=== PATIENT | male | born 1945 | race Caucasian/White ===

== ENCOUNTER 2018-04-30 16:51 | Inpatient (IN) | payer MEDICARE, BC ==
[2018-04-30] MEDS ORDERED: Sodium Chloride 0.9% 2.5 ML Syringe FLUSH PRN ×2 (17:08→19:14)
[2018-04-30] MEDS ORDERED: Sodium Chloride 0.9% 10 ML Syringe FLUSH PRN ×2 (17:08→19:14)
--- NOTE | 2018-04-30 17:11 | EDM.PDOC ---
ED HPI GENERAL MEDICAL PROBLEM - General Chief Complaint: Respiratory Problem Stated Complaint: WEAK Time Seen by Provider: 04/30/18 16:53 Source of Information: Reports: Patient History Limitations: Reports: No Limitations - History of Present Illness INITIAL COMMENTS - FREE TEXT/NARRATIVE: History of present illness: []Patient was brought in by his daughter for headache, generalized weakness and COPD exacerbation with cough. He denies any chest pain, notes that he was recently started on Elaquis and has been taking 800 mg of ibuprofen for his headaches. He's had no abdominal pain, vomiting or diarrhea. Review of systems: As per history of present illness and below otherwise all systems reviewed and negative. Past medical history: As per history of present illness and as reviewed below otherwise noncontributory. Surgical history: As per history of present illness and as reviewed below otherwise noncontributory. Social history: No reported history of drug or alcohol abuse. Family history: As per history of present illness and as reviewed below otherwise noncontributory. Physical exam: General: Well developed, well nourished in NAD HEENT: Atraumatic, normocephalic, pupils reactive, negative for conjunctival pallor or scleral icterus, mucous membranes moist, throat clear, neck supple, nontender, trachea midline. Lungs: Clear to auscultation, decreased breath sounds equal bilaterally, chest nontender. Heart: S1S2, regular, negative for clicks, rubs, or JVD. Abdomen: NABS, Soft, nondistended, nontender. Negative for masses or hepatosplenomegaly. Negative for costovertebral tenderness. Pelvis: Stable nontender. Genitourinary: Deferred. Rectal: Deferred. Extremities: Atraumatic, negative for cords or calf pain. Neurovascular unremarkable. Neuro: Awake, alert, oriented. Cranial nerves II through XII unremarkable. Cerebellum unremarkable. Motor and sensory unremarkable throughout. Exam nonfocal. Skin:warm and dry Diagnostics: CBC, CMP, chest x-ray, blood cultures, CT head Therapeutics: DuoNeb, Solu-Medrol, Levaquin started in the ED ED Course: Unremarkable Impression: Early pneumonia left lower lobe Prescriptions: None Plan: For observation for IV antibiotics and further breathing treatments as needed. Definitive disposition and diagnosis as appropriate pending reevaluation and review of above. - Related Data Allergies Allergy/AdvReac Type Severity Reaction Status Date / Time prednisone AdvReac Agitation Verified 04/30/18 17:01 Home Meds: Home Meds Albuterol [Proventil HFA] 1 puff INH QID PRN 07/06/13 [History] Ipratropium [Atrovent HFA] 2 puff INH QID PRN 07/06/13 [History] Ipratropium/Albuterol Sulfate [Duoneb 0.5 mg-3 mg/3 ml Soln] 3 ml IH QID PRN [History] Simvastatin [Zocor] 10 mg PO BEDTIME 11/24/14 [History] traZODone 100 mg PO BEDTIME 11/24/14 [History] Docusate Sodium [Pedia-Lax Stool Softener] 50 mg PO DAILY 01/01/16 [History] ALPRAZolam [Xanax] 1 tab PO BEDTIME 04/18/16 [History] Budesonide/Formoterol Fumarate [Symbicort 160-4.5 Mcg Inhaler] 2 puff INH BID [History] Docusate Sodium [Colace Clear] 1 cap PO BID 04/18/16 [History] Levofloxacin 1 tab PO DAILY 04/18/16 [History] Montelukast [Singulair] 10 mg PO BEDTIME 04/18/16 [History] traZODone 1 tab PO BEDTIME 04/18/16 [History] Apixaban [Eliquis] 5 mg PO BID 04/30/18 [History] Past Medical History - Past Health History Medical/Surgical History: Denies Medical/Surgical History HEENT History: Reports: None Other HEENT History: feeling of tightness in throat Cardiovascular History: Reports: High Cholesterol Respiratory History: Reports: COPD Other Respiratory History: on home O2 at 3LPM/NC Gastrointestinal History: Reports: Chronic Constipation Genitourinary History: Denies: Dialysis Other Genitourinary History: prostate CA; had radiation last 2007 Musculoskeletal History: Reports: Other (See Below) Other Musculoskeletal History: herniated disc Neurological History: Reports: None Psychiatric History: Reports: Anxiety Other Psychiatric History: on medications Endocrine/Metabolic History: Reports: None Hematologic History: Reports: None Immunologic History: Reports: None Oncologic (Cancer) History: Reports: Prostate Dermatologic History: Reports: None - Infectious Disease History Infectious Disease History: Reports: Influenza - Past Surgical History HEENT Surgical History: Reports: Oral Surgery Neurological Surgical History: Reports: Lumbar Spine Musculoskeletal Surgical History: Reports: Other (See Below) Oncologic Surgical History: Reports: Other (See Below) Social & Family History - Family History Family Medical History: Noncontributory Respiratory: Reports: Other (See Below) Other Respiratory Family Hisory: emphysema Oncologic: Reports: Other (See Below) Other Oncologic Family History: not sure what type of CA - Caffeine Use Caffeine Use: Reports: Coffee Caffeine Use Comment: 5-10cups/day ED ROS GENERAL - Review of Systems Review Of Systems: ROS reveals no pertinent complaints other than HPI. ED EXAM, GENERAL - Physical Exam Exam: See Below (See history of present illness) Course - Vital Signs Last Recorded V/S: Last Vital Signs Temp 98.4 F 04/30/18 17:02 Pulse 96 04/30/18 17:02 Resp 24 H 04/30/18 17:02 BP 126/71 04/30/18 17:02 Pulse Ox 93 L 04/30/18 17:02 - Orders/Labs/Meds Orders: Active Orders 24 hr Category Date Time Status Patient Status [ADT] Stat ADT 04/30/18 18:44 Active CULTURE BLOOD [BC] Stat Lab 04/30/18 17:21 Received CULTURE BLOOD [BC] Stat Lab 04/30/18 18:15 Received Levofloxacin/Dextrose 5%-Water [Levaquin in D5W 500 MG/ Med 04/30/18 18:43 Active 100 ML] 500 mg Premix Bag 1 bag IV ONETIME Sodium Chloride 0.9% [Saline Flush] Med 04/30/18 17:08 Active 10 ml FLUSH ASDIRECTED PRN Sodium Chloride 0.9% [Saline Flush] Med 04/30/18 17:08 Active 2.5 ml FLUSH ASDIRECTED PRN Blood Culture x2 Reflex Set [OM.PC] Stat Oth 04/30/18 17:08 Ordered Saline Lock Insert [OM.PC] Stat Oth 04/30/18 17:08 Ordered Medication Orders Levofloxacin/Dextrose 500 mg/ (Premix) 100 mls @ 100 mls/hr IV ONETIME ONE Stop: 04/30/18 19:42 Sodium Chloride (Saline Flush) 10 ml FLUSH ASDIRECTED PRN PRN Reason: Keep Vein Open Sodium Chloride (Saline Flush) 2.5 ml FLUSH ASDIRECTED PRN PRN Reason: Keep Vein Open Labs: Laboratory Tests 04/30/18 04/30/18 04/30/18 Range/Units 17:21 17:21 17:21 WBC 3.95 L (4.0-11.0) K/uL RBC 4.29 L (4.50-5.90) M/uL Hgb 12.9 L (13.0-17.0) g/dL Hct 41.7 (38.0-50.0) % MCV 97.2 (80.0-98.0) fL MCH 30.1 (27.0-32.0) pg MCHC 30.9 L (31.0-37.0) g/dL RDW Std Deviation 47.8 (28.0-62.0) fl RDW Coeff of Giacomo 14 (11.0-15.0) % Plt Count 162 (150-400) K/uL MPV 9.60 (7.40-12.00) fL Neut % (Auto) 46.7 L (48.0-80.0) % Lymph % (Auto) 34.2 (16.0-40.0) % Coleman % (Auto) 8.9 (0.0-15.0) % Eos % (Auto) 9.9 H (0.0-7.0) % Baso % (Auto) 0.3 (0.0-1.5) % Neut # (Auto) 1.9 (1.4-5.7) K/uL Lymph # (Auto) 1.4 (0.6-2.4) K/uL Coleman # (Auto) 0.4 (0.0-0.8) K/uL Eos # (Auto) 0.4 (0.0-0.7) K/uL Baso # (Auto) 0.0 (0.0-0.1) K/uL Nucleated RBC % 0.0 /100WBC Nucleated RBCs # 0 K/uL INR 0.98 APTT 27.9 (18.6-31.3) SEC Sodium 143 (136-148) mmol/L Potassium 4.4 (3.5-5.1) mmol/L Chloride 103 (98-107) mmol/L Carbon Dioxide 35.3 H (21.0-32.0) mmol/L BUN 17 (7.0-18.0) mg/dL Creatinine 0.7 L (0.8-1.3) mg/dL Est Cr Clr Drug Dosing TNP Estimated GFR (MDRD) > 60.0 ml/min Glucose 110 H (74-106) mg/dL Calcium 9.3 (8.5-10.1) mg/dL Total Bilirubin 0.4 (0.2-1.0) mg/dL AST 13 L (15-37) IU/L ALT 15 (14-63) IU/L Alkaline Phosphatase 73 (46-116) U/L Total Protein 7.1 (6.4-8.2) g/dL Albumin 3.6 (3.4-5.0) g/dL Globulin 3.5 (2.6-4.0) g/dL Albumin/Globulin Ratio 1.0 (0.9-1.6) Meds: Medications Generic Name Dose Route Start Last Admin Trade Name Freq PRN Reason Stop Dose Admin Levofloxacin/Dextrose 500 mg/ 100 mls @ 100 mls/hr 04/30/18 18:43 Premix IV 04/30/18 19:42 ONETIME ONE Sodium Chloride 10 ml 04/30/18 17:08 Saline Flush FLUSH ASDIRECTED PRN Keep Vein Open Sodium Chloride 2.5 ml 04/30/18 17:08 Saline Flush FLUSH ASDIRECTED PRN Keep Vein Open Departure - Departure Time of Disposition: 18:55 Disposition: DC/Tfer to Acute Hospital 02 Condition: Good Clinical Impression: Pneumonia Qualifiers: Pneumonia type: due to unspecified organism Laterality: left Lung location: lower lobe of lung Qualified Code(s): J18.9 - Pneumonia, unspecified organism - Discharge Information *PRESCRIPTION DRUG MONITORING PROGRAM REVIEWED*: No *COPY OF PRESCRIPTION DRUG MONITORING REPORT IN PATIENT LIZZIE: No Referrals: PCP,Unknown [Primary Care Provider] - Forms: ED Department Discharge - My Orders Last 24 Hours: My Active Orders 04/30/18 17:08 Sodium Chloride 0.9% [Saline Flush] 10 ml FLUSH ASDIRECTED PRN Sodium Chloride 0.9% [Saline Flush] 2.5 ml FLUSH ASDIRECTED PRN Blood Culture x2 Reflex Set [OM.PC] Stat Saline Lock Insert [OM.PC] Stat 04/30/18 17:21 CULTURE BLOOD [BC] Stat 04/30/18 18:15 CULTURE BLOOD [BC] Stat 04/30/18 18:43 Levofloxacin/Dextrose 5%-Water [Levaquin in D5W 500 MG/100 ML] 500 mg Premix Bag 1 bag IV ONETIME 04/30/18 18:44 Patient Status [ADT] Stat - Assessment/Plan Last 24 Hours: My Active Orders 04/30/18 17:08 Sodium Chloride 0.9% [Saline Flush] 10 ml FLUSH ASDIRECTED PRN Sodium Chloride 0.9% [Saline Flush] 2.5 ml FLUSH ASDIRECTED PRN Blood Culture x2 Reflex Set [OM.PC] Stat Saline Lock Insert [OM.PC] Stat 04/30/18 17:21 CULTURE BLOOD [BC] Stat 04/30/18 18:15 CULTURE BLOOD [BC] Stat 04/30/18 18:43 Levofloxacin/Dextrose 5%-Water [Levaquin in D5W 500 MG/100 ML] 500 mg Premix Bag 1 bag IV ONETIME 04/30/18 18:44 Patient Status [ADT] Stat
[2018-04-30 17:58] LABS: CHLORIDE,CL 103 mmol/L (98-107); SODIUM,NA 143 mmol/L (136-148)
--- NOTE | 2018-04-30 18:25 | CT ---
HISTORY: Headache. Weakness. TECHNIQUE: CT brain without contrast. COMPARISON: None. FINDINGS: No acute intracranial hemorrhage. No extra-axial collection. No mass effect or midline shift. Mild patchy hypoattenuation in the deep white matter is nonspecific but likely chronic small vessel ischemic changes. Ventricular system is normal in caliber and morphology. Cisterns are patent. Calvarium is intact. Imaged portions of the paranasal sinuses and mastoid air cells are clear. IMPRESSION: No acute intracranial abnormality. Mild white matter disease, likely chronic small vessel ischemic change. Please note that all CT scans at this facility use dose modulation, iterative reconstruction, and/or weight-based dosing when appropriate to reduce radiation dose to as low as reasonably achievable. Dictated by Bon Rucker MD @ Apr 30 2018 6:18PM Signed by Dr. Bon Rucker @ Apr 30 2018 6:22PM
--- NOTE | 2018-04-30 18:27 | CR ---
HISTORY: Cough. TECHNIQUE: Frontal view the chest. COMPARISON: Chest x-ray 04/18/2016. FINDINGS: Consolidative airspace opacity in the left lung base. No consolidation on the right. No pleural effusion or pneumothorax. Pulmonary vasculature and cardiomediastinal silhouette are within normal limits. IMPRESSION: Left lung base airspace consolidation, likely pneumonia. Follow-up after treatment is recommended to assess for resolution. Dictated by Bon Rucker MD @ Apr 30 2018 6:23PM Signed by Dr. Bon Rucker @ Apr 30 2018 6:24PM
[2018-04-30] MEDS ORDERED: Levofloxacin/Dextrose 5%-Water 500 MG in Premix Bag 1 BAG IV ONE (18:43)
[2018-04-30] MEDS ORDERED: Sodium Chloride 0.9% 10 ML SDV IV PRN (19:14)
[2018-04-30] MEDS ORDERED: Albuterol/Ipratropium 3.0-0.5 MG/3 ML Neb Soln NEB PRN (19:14)
[2018-04-30] MEDS ORDERED: Ondansetron 4 MG/2 ML SDV IVPUSH PRN (19:14)
[2018-04-30] MEDS ORDERED: Morphine 10 MG/ML Syringe IVPUSH PRN (19:14)
[2018-04-30] MEDS ORDERED: Acetaminophen 325 MG Tab PO PRN (19:14)
[2018-04-30] MEDS ORDERED: cefTRIAXone 1 GM in Sodium Chloride 0.9% 50 ML IV SCH (19:30)
--- NOTE | 2018-04-30 19:31 | PCM.HP ---
H&P History of Present Illness - General Date of Service: 04/30/18 Admit Problem/Dx: Admission Diagnosis/Problem Admission Diagnosis/Problem Pneumonia Source of Information: Patient, Family - History of Present Illness Initial Comments - Free Text/Narative: This is a 72-year-old male with no significant past medical history of COPD as well as clotting(pulmonary embolism history per family) history for which he is on Eliquis 5mg. patient presented to the ED with complaints of a headache generalized weakness and appearance of COPD exacerbation. Patient is on home O2 at 4 L and stated that despite the O2 4 L he was wheezing becoming and increased short of breath having a cough with productive sputum. Patient denied any fevers chills, nausea vomiting, diarrhea or constipation. Patient denied any chest pain or pressure. Patient states that he's been feeling unwell for the past week or so he saw his primary care physician Dr. Limon in the a.m. we will place the patient on Levaquin 500 mg daily however because continue to get worse throughout the rest of the day and proceeded to coming to the ER for further investigation. Imaging done in the ED indicates a left lower lobe pneumonia, she was given a IV 500 mg dose of Levaquin and DuoNeb's and was subsequently admitted for pneumonia treatment and COPD exacerbation. - Related Data Allergies/Adverse Reactions: Allergies Allergy/AdvReac Type Severity Reaction Status Date / Time prednisone AdvReac Agitation Verified 04/30/18 17:01 Home Medications: Home Meds Albuterol [Proventil HFA] 1 puff INH QID PRN 07/06/13 [History] Ipratropium [Atrovent HFA] 2 puff INH QID PRN 07/06/13 [History] Ipratropium/Albuterol Sulfate [Duoneb 0.5 mg-3 mg/3 ml Soln] 3 ml IH QID PRN [History] Simvastatin [Zocor] 10 mg PO BEDTIME 11/24/14 [History] traZODone 100 mg PO BEDTIME 11/24/14 [History] Docusate Sodium [Pedia-Lax Stool Softener] 50 mg PO DAILY 01/01/16 [History] ALPRAZolam [Xanax] 1 tab PO BEDTIME 04/18/16 [History] Budesonide/Formoterol Fumarate [Symbicort 160-4.5 Mcg Inhaler] 2 puff INH BID [History] Docusate Sodium [Colace Clear] 1 cap PO BID 04/18/16 [History] Levofloxacin 1 tab PO DAILY 04/18/16 [History] Montelukast [Singulair] 10 mg PO BEDTIME 04/18/16 [History] traZODone 1 tab PO BEDTIME 04/18/16 [History] Apixaban [Eliquis] 5 mg PO BID 04/30/18 [History] Past Medical History - Past Health History Medical/Surgical History: Denies Medical/Surgical History HEENT History: Reports: None Other HEENT History: feeling of tightness in throat Cardiovascular History: Reports: High Cholesterol Other Cardiovascular History: AAA Respiratory History: Reports: COPD Other Respiratory History: on home O2 at 3LPM/NC Gastrointestinal History: Reports: Chronic Constipation Genitourinary History: Denies: Dialysis Other Genitourinary History: prostate CA; had radiation last 2007 Musculoskeletal History: Reports: Other (See Below) Other Musculoskeletal History: herniated disc Neurological History: Reports: None Psychiatric History: Reports: Anxiety Other Psychiatric History: on medications Endocrine/Metabolic History: Reports: None Hematologic History: Reports: None Immunologic History: Reports: None Oncologic (Cancer) History: Reports: Prostate Dermatologic History: Reports: None - Infectious Disease History Infectious Disease History: Reports: Influenza - Past Surgical History HEENT Surgical History: Reports: Oral Surgery Neurological Surgical History: Reports: Lumbar Spine Musculoskeletal Surgical History: Reports: Other (See Below) Oncologic Surgical History: Reports: Other (See Below) Social & Family History - Family History Family Medical History: Noncontributory Respiratory: Reports: Other (See Below) Other Respiratory Family Hisory: emphysema Oncologic: Reports: Other (See Below) Other Oncologic Family History: not sure what type of CA - Tobacco Use Smoking Status *Q: Former Smoker Used Tobacco, but Quit: Yes Month/Year Tobacco Last Used: 2008 - Caffeine Use Caffeine Use: Reports: Coffee Caffeine Use Comment: 5-10cups/day - Recreational Drug Use Recreational Drug Use: No H&P Review of Systems - Review of Systems: Review Of Systems: ROS reveals no pertinent complaints other than HPI. Exam - Exam Exam: See Below - Vital Signs Vital Signs: Last Vital Signs Temp 36.9 C 04/30/18 17:02 Pulse 91 04/30/18 18:30 Resp 20 04/30/18 18:30 BP 126/70 04/30/18 18:30 Pulse Ox 94 L 04/30/18 18:30 - Exam Quality Assessment: Supplemental Oxygen General: Alert, Oriented, Mild Distress, Moderate Distress Lungs: Decreased Breath Sounds, Wheezing Cardiovascular: Regular Rate, Regular Rhythm GI/Abdominal Exam: Normal Bowel Sounds, Soft Extremities: Normal Inspection - Patient Data Lab Results Last 24 hrs: Laboratory Results - last 24 hr 04/30/18 04/30/18 04/30/18 Range/Units 17:21 17:21 17:21 WBC 3.95 L (4.0-11.0) K/uL RBC 4.29 L (4.50-5.90) M/uL Hgb 12.9 L (13.0-17.0) g/dL Hct 41.7 (38.0-50.0) % MCV 97.2 (80.0-98.0) fL MCH 30.1 (27.0-32.0) pg MCHC 30.9 L (31.0-37.0) g/dL RDW Std Deviation 47.8 (28.0-62.0) fl RDW Coeff of Giacomo 14 (11.0-15.0) % Plt Count 162 (150-400) K/uL MPV 9.60 (7.40-12.00) fL Neut % (Auto) 46.7 L (48.0-80.0) % Lymph % (Auto) 34.2 (16.0-40.0) % Porter % (Auto) 8.9 (0.0-15.0) % Eos % (Auto) 9.9 H (0.0-7.0) % Baso % (Auto) 0.3 (0.0-1.5) % Neut # (Auto) 1.9 (1.4-5.7) K/uL Lymph # (Auto) 1.4 (0.6-2.4) K/uL Porter # (Auto) 0.4 (0.0-0.8) K/uL Eos # (Auto) 0.4 (0.0-0.7) K/uL Baso # (Auto) 0.0 (0.0-0.1) K/uL Nucleated RBC % 0.0 /100WBC Nucleated RBCs # 0 K/uL INR 0.98 APTT 27.9 (18.6-31.3) SEC Sodium 143 (136-148) mmol/L Potassium 4.4 (3.5-5.1) mmol/L Chloride 103 (98-107) mmol/L Carbon Dioxide 35.3 H (21.0-32.0) mmol/L BUN 17 (7.0-18.0) mg/dL Creatinine 0.7 L (0.8-1.3) mg/dL Est Cr Clr Drug Dosing TNP Estimated GFR (MDRD) > 60.0 ml/min Glucose 110 H (74-106) mg/dL Calcium 9.3 (8.5-10.1) mg/dL Total Bilirubin 0.4 (0.2-1.0) mg/dL AST 13 L (15-37) IU/L ALT 15 (14-63) IU/L Alkaline Phosphatase 73 (46-116) U/L Total Protein 7.1 (6.4-8.2) g/dL Albumin 3.6 (3.4-5.0) g/dL Globulin 3.5 (2.6-4.0) g/dL Albumin/Globulin Ratio 1.0 (0.9-1.6) Result Diagrams: 04/30/18 17:21 04/30/18 17:21 Problem List Initiated/Reviewed/Updated: Yes Orders Last 24hrs: Active Orders 24 hr Category Date Time Status Patient Status [ADT] Stat ADT 04/30/18 18:44 Active Height and Weight [RC] UPON Care 04/30/18 19:14 Ordered Intake and Output [RC] QSHIFT Care 04/30/18 19:14 Ordered Oxygen Therapy [RC] PRN Care 04/30/18 19:14 Ordered Pulse Oximetry [RC] PRN Care 04/30/18 19:14 Ordered RT Aerosol Therapy [RC] ASDIRECTED Care 04/30/18 19:16 Ordered Telemetry Monitoring [Cardiac Monitoring] [RC] . Care 04/30/18 19:23 Ordered DIRECTED Up With Assistance [RC] ASDIRECTED Care 04/30/18 19:14 Ordered VTE/DVT Education [RC] PER UNIT ROUTINE Care 04/30/18 19:14 Ordered Vital Signs [RC] Q4H Care 04/30/18 19:14 Ordered PT Evaluation and Treatment [CONS] Routine Cons 04/30/18 19:14 Ordered Respiratory Care Assess and Treatment [CONS] Routine Cons 04/30/18 19:14 Ordered Regular Diet [DIET] Diet 04/30/18 Breakfast Ordered C-REACTIVE PROTEIN [CHEM] Routine Lab 04/30/18 19:14 Ordered CBC WITH AUTO DIFF [HEME] AM Lab 05/01/18 05:11 Ordered COMPREHENSIVE METABOLIC PN,CMP [CHEM] AM Lab 05/01/18 05:11 Ordered CULTURE BLOOD [BC] Stat Lab 04/30/18 17:21 Received CULTURE BLOOD [BC] Stat Lab 04/30/18 18:15 Received CULTURE SPUTUM + SMEAR [RM] Stat Lab 04/30/18 19:14 Ordered CULTURE URINE [RM] Stat Lab 04/30/18 19:14 Ordered LACTIC ACID,WHOLE BLOOD [BG] Stat Lab 04/30/18 19:24 Ordered UA W/MICROSCOPIC [URIN] Routine Lab 04/30/18 19:14 Ordered Acetaminophen [Tylenol] Med 04/30/18 19:14 Ordered 650 mg PO Q4H PRN Albuterol/Ipratropium [DuoNeb 3.0-0.5 MG/3 ML] Med 04/30/18 19:14 Ordered 3 ml NEB Q4HRRT PRN Azithromycin [Zithromax] Med 04/30/18 19:30 Ordered 500 mg PO Q24H Levofloxacin/Dextrose 5%-Water [Levaquin in D5W 500 MG/ Med 04/30/18 18:43 Active 100 ML] 500 mg Premix Bag 1 bag IV ONETIME Morphine Med 04/30/18 19:14 Ordered 2 mg IVPUSH Q2H PRN Ondansetron [Zofran] Med 04/30/18 19:14 Ordered 4 mg IVPUSH Q4H PRN Sodium Chloride 0.9% [Normal Saline] Med 04/30/18 19:14 Ordered 10 ml IV ASDIRECTED PRN Sodium Chloride 0.9% [Saline Flush] Med 04/30/18 17:08 Active 10 ml FLUSH ASDIRECTED PRN Sodium Chloride 0.9% [Saline Flush] Med 04/30/18 19:14 Ordered 10 ml FLUSH ASDIRECTED PRN Sodium Chloride 0.9% [Saline Flush] Med 04/30/18 17:08 Active 2.5 ml FLUSH ASDIRECTED PRN Sodium Chloride 0.9% [Saline Flush] Med 04/30/18 19:14 Ordered 2.5 ml FLUSH ASDIRECTED PRN cefTRIAXone [Rocephin] 1 gm Med 04/30/18 19:30 Ordered Sodium Chloride 0.9% [Normal Saline] 50 ml IV Q24H Blood Culture x2 Reflex Set [OM.PC] Stat Oth 04/30/18 17:08 Ordered Peripheral IV Insertion Adult [OM.PC] Routine Oth 04/30/18 19:14 Ordered Saline Lock Insert [OM.PC] Stat Oth 04/30/18 17:08 Ordered Medication Orders Acetaminophen (Tylenol) 650 mg PO Q4H PRN PRN Reason: Pain (Mild 1-3)/fever Albuterol/Ipratropium (Duoneb 3.0-0.5 Mg/3 Ml) 3 ml NEB Q4HRRT PRN PRN Reason: Shortness Of Breath/wheezing Azithromycin (Zithromax) 500 mg PO Q24H CARLOS A Levofloxacin/Dextrose 500 mg/ (Premix) 100 mls @ 100 mls/hr IV ONETIME ONE Stop: 04/30/18 19:42 Last Admin: 04/30/18 19:07 Dose: 100 mls/hr Ceftriaxone Sodium 1 gm/ (Sodium Chloride) 50 mls @ 100 mls/hr IV Q24H CARLOS A Morphine Sulfate (Morphine) 2 mg IVPUSH Q2H PRN PRN Reason: Pain (severe 7-10) Stop: 05/01/18 19:15 Ondansetron HCl (Zofran) 4 mg IVPUSH Q4H PRN PRN Reason: Nausea/Vomiting Sodium Chloride (Saline Flush) 10 ml FLUSH ASDIRECTED PRN PRN Reason: Keep Vein Open Last Admin: 04/30/18 19:07 Dose: 10 ml Sodium Chloride (Saline Flush) 2.5 ml FLUSH ASDIRECTED PRN PRN Reason: Keep Vein Open Last Admin: 04/30/18 19:07 Dose: 2.5 ml Sodium Chloride (Saline Flush) 10 ml FLUSH ASDIRECTED PRN PRN Reason: Keep Vein Open Sodium Chloride (Saline Flush) 2.5 ml FLUSH ASDIRECTED PRN PRN Reason: Keep Vein Open Sodium Chloride (Normal Saline) 10 ml IV ASDIRECTED PRN PRN Reason: IV Use Assessment/Plan Comment:: This is a 72-year-old male with a past medical history of COPD presenting with weakness, dyspnea, feeling unwell cough and increased sputum production secondary to acute exacerbation of COPD with a pneumonia based upon chest x-ray -For the acute COPD, patient to get dual nebs scheduled, methyl Pred, O2 titrated as needed, respiratory therapy consult. -For the patient's pneumonia likely community-acquired pneumonia -Sputum cultures, blood cultures ordered -Patient however to be treated with ceftriaxone and azithromycin up until sputum cultures come back -Patient placed on regular diet DVT prophylaxis with resumption of Eliquis 5mg. Labs in the a.m.
[2018-04-30] MEDS ORDERED: LORazepam 2 MG/ML SDV IVPUSH PRN (19:38)
[2018-04-30] MEDS ORDERED: Morphine 2 MG/ML Syringe IVPUSH PRN (19:44)
[2018-04-30] MEDS ORDERED: methylPREDNISolone Sodium Succinate 125 MG/2 ML SDV IVPUSH SCH (19:45)
[2018-04-30] MEDS: Azithromycin 250 MG Tab PO SCH (21:22)
[2018-04-30] MEDS: Apixaban 5 MG Tab PO SCH (21:22)
[2018-04-30] MEDS: methylPREDNISolone Sodium Succinate 125 MG/2 ML SDV IVPUSH SCH (21:23)
[2018-04-30] MEDS: cefTRIAXone 1 GM in Premix Bag 1 BAG IV SCH (21:31)
[2018-04-30] MEDS: Albuterol/Ipratropium 3.0-0.5 MG/3 ML Neb Soln NEB SCH (22:53)
[2018-05-01] MEDS: Simvastatin 20 MG Tab PO SCH ×2 (01:34→21:02)
[2018-05-01] MEDS: Montelukast 10 MG Tab PO SCH ×2 (01:34→21:03)
[2018-05-01] MEDS: traZODone 50 MG Tab PO SCH ×2 (01:34→21:02)
[2018-05-01] MEDS: Albuterol/Ipratropium 3.0-0.5 MG/3 ML Neb Soln NEB SCH ×7 (02:56→22:00)
[2018-05-01] MEDS: methylPREDNISolone Sodium Succinate 125 MG/2 ML SDV IVPUSH SCH ×3 (02:56→21:06)
[2018-05-01 06:27] LABS: CHLORIDE,CL 105 mmol/L (98-107); SODIUM,NA 142 mmol/L (136-148)
[2018-05-01] MEDS: Docusate Sodium 100 MG Cap PO SCH (09:29)
[2018-05-01] MEDS: Apixaban 5 MG Tab PO SCH ×2 (09:29→21:02)
[2018-05-01] MEDS: Budesonide/Formoterol 160-4.5 MCG/Puff 6 GM Inhaler INH SCH ×2 (09:40→20:57)
[2018-05-01] MEDS ORDERED: methylPREDNISolone Sodium Succinate 125 MG/2 ML SDV IVPUSH SCH (12:30)
--- NOTE | 2018-05-01 12:32 | PCM.PN ---
- General Info Date of Service: 05/01/18 - Review of Systems Systems Review Comment:: feeling a little better, reports shortness of breath with movement - Patient Data Vitals - Most Recent: Last Vital Signs Temp 36 C 05/01/18 08:53 Pulse 106 H 05/01/18 08:53 Resp 22 H 05/01/18 03:56 BP 138/78 05/01/18 08:53 Pulse Ox 96 05/01/18 03:56 Weight - Most Recent: 96.162 kg I&O - Last 24 Hours: Intake & Output 04/30/18 05/01/18 05/01/18 22:59 06:59 14:59 Intake Total 520 Output Total 170 Balance 350 Lab Results Last 24 Hours: Laboratory Results - last 24 hr 04/30/18 04/30/18 04/30/18 Range/Units 17:21 17:21 17:21 WBC 3.95 L (4.0-11.0) K/uL RBC 4.29 L (4.50-5.90) M/uL Hgb 12.9 L (13.0-17.0) g/dL Hct 41.7 (38.0-50.0) % MCV 97.2 (80.0-98.0) fL MCH 30.1 (27.0-32.0) pg MCHC 30.9 L (31.0-37.0) g/dL RDW Std Deviation 47.8 (28.0-62.0) fl RDW Coeff of Giacomo 14 (11.0-15.0) % Plt Count 162 (150-400) K/uL MPV 9.60 (7.40-12.00) fL Neut % (Auto) 46.7 L (48.0-80.0) % Lymph % (Auto) 34.2 (16.0-40.0) % [place] % (Auto) 8.9 (0.0-15.0) % Eos % (Auto) 9.9 H (0.0-7.0) % Baso % (Auto) 0.3 (0.0-1.5) % Neut # (Auto) 1.9 (1.4-5.7) K/uL Lymph # (Auto) 1.4 (0.6-2.4) K/uL [place] # (Auto) 0.4 (0.0-0.8) K/uL Eos # (Auto) 0.4 (0.0-0.7) K/uL Baso # (Auto) 0.0 (0.0-0.1) K/uL Nucleated RBC % 0.0 /100WBC Nucleated RBCs # 0 K/uL INR 0.98 APTT 27.9 (18.6-31.3) SEC ABG pH (7.35-7.45) ABG pCO2 (35-45) mmHG ABG pO2 (75-100) mmHG ABG HCO3 (22-26) mEq/L ABG Total CO2 ABG Base Excess (-2.0-2.0) Lactate (0.20-2.00) mmol/L Sodium 143 (136-148) mmol/L Potassium 4.4 (3.5-5.1) mmol/L Chloride 103 (98-107) mmol/L Carbon Dioxide 35.3 H (21.0-32.0) mmol/L BUN 17 (7.0-18.0) mg/dL Creatinine 0.7 L (0.8-1.3) mg/dL Est Cr Clr Drug Dosing TNP Estimated GFR (MDRD) > 60.0 ml/min Glucose 110 H (74-106) mg/dL Calcium 9.3 (8.5-10.1) mg/dL Total Bilirubin 0.4 (0.2-1.0) mg/dL AST 13 L (15-37) IU/L ALT 15 (14-63) IU/L Alkaline Phosphatase 73 (46-116) U/L C-Reactive Protein (0.00-0.90) mg/dL Total Protein 7.1 (6.4-8.2) g/dL Albumin 3.6 (3.4-5.0) g/dL Globulin 3.5 (2.6-4.0) g/dL Albumin/Globulin Ratio 1.0 (0.9-1.6) Urine Color Urine Appearance Urine pH (5.0-8.0) Ur Specific [place] (1.001-1.035) Urine Protein (NEGATIVE) mg/dL Urine Glucose (UA) (NEGATIVE) mg/dL Urine Ketones (NEGATIVE) mg/dL Urine Occult Blood (NEGATIVE) Urine Nitrite (NEGATIVE) Urine Bilirubin (NEGATIVE) Urine Ictotest Urine Urobilinogen (<2.0) EU/dL Ur Leukocyte Esterase (NEGATIVE) Urine RBC (0-2/HPF) Urine WBC (0-5/HPF) Ur Epithelial Cells (NONE-FEW) Urine Bacteria (NEGATIVE) 04/30/18 04/30/18 04/30/18 Range/Units 17:21 19:24 20:52 WBC (4.0-11.0) K/uL RBC (4.50-5.90) M/uL Hgb (13.0-17.0) g/dL Hct (38.0-50.0) % MCV (80.0-98.0) fL MCH (27.0-32.0) pg MCHC (31.0-37.0) g/dL RDW Std Deviation (28.0-62.0) fl RDW Coeff of Giacomo (11.0-15.0) % Plt Count (150-400) K/uL MPV (7.40-12.00) fL Neut % (Auto) (48.0-80.0) % Lymph % (Auto) (16.0-40.0) % [place] % (Auto) (0.0-15.0) % Eos % (Auto) (0.0-7.0) % Baso % (Auto) (0.0-1.5) % Neut # (Auto) (1.4-5.7) K/uL Lymph # (Auto) (0.6-2.4) K/uL [place] # (Auto) (0.0-0.8) K/uL Eos # (Auto) (0.0-0.7) K/uL Baso # (Auto) (0.0-0.1) K/uL Nucleated RBC % /100WBC Nucleated RBCs # K/uL INR APTT (18.6-31.3) SEC ABG pH 7.318 L (7.35-7.45) ABG pCO2 69 H (35-45) mmHG ABG pO2 88 (75-100) mmHG ABG HCO3 35 H (22-26) mEq/L ABG Total CO2 32.3 ABG Base Excess 6.7 H (-2.0-2.0) Lactate 0.6 (0.20-2.00) mmol/L Sodium (136-148) mmol/L Potassium (3.5-5.1) mmol/L Chloride (98-107) mmol/L Carbon Dioxide (21.0-32.0) mmol/L BUN (7.0-18.0) mg/dL Creatinine (0.8-1.3) mg/dL Est Cr Clr Drug Dosing Estimated GFR (MDRD) ml/min Glucose (74-106) mg/dL Calcium (8.5-10.1) mg/dL Total Bilirubin (0.2-1.0) mg/dL AST (15-37) IU/L ALT (14-63) IU/L Alkaline Phosphatase (46-116) U/L C-Reactive Protein <0.20 (0.00-0.90) mg/dL Total Protein (6.4-8.2) g/dL Albumin (3.4-5.0) g/dL Globulin (2.6-4.0) g/dL Albumin/Globulin Ratio (0.9-1.6) Urine Color Urine Appearance Urine pH (5.0-8.0) Ur Specific [place] (1.001-1.035) Urine Protein (NEGATIVE) mg/dL Urine Glucose (UA) (NEGATIVE) mg/dL Urine Ketones (NEGATIVE) mg/dL Urine Occult Blood (NEGATIVE) Urine Nitrite (NEGATIVE) Urine Bilirubin (NEGATIVE) Urine Ictotest Urine Urobilinogen (<2.0) EU/dL Ur Leukocyte Esterase (NEGATIVE) Urine RBC (0-2/HPF) Urine WBC (0-5/HPF) Ur Epithelial Cells (NONE-FEW) Urine Bacteria (NEGATIVE) 04/30/18 05/01/18 05/01/18 Range/Units 21:45 05:48 05:48 WBC 3.57 L (4.0-11.0) K/uL RBC 4.00 L (4.50-5.90) M/uL Hgb 12.2 L (13.0-17.0) g/dL Hct 38.3 (38.0-50.0) % MCV 95.8 (80.0-98.0) fL MCH 30.5 (27.0-32.0) pg MCHC 31.9 (31.0-37.0) g/dL RDW Std Deviation 46.7 (28.0-62.0) fl RDW Coeff of Giacomo 13 (11.0-15.0) % Plt Count 142 L (150-400) K/uL MPV 9.60 (7.40-12.00) fL Neut % (Auto) 88.0 H (48.0-80.0) % Lymph % (Auto) 11.2 L (16.0-40.0) % [place] % (Auto) 0.8 (0.0-15.0) % Eos % (Auto) 0.0 (0.0-7.0) % Baso % (Auto) 0.0 (0.0-1.5) % Neut # (Auto) 3.1 (1.4-5.7) K/uL Lymph # (Auto) 0.4 L (0.6-2.4) K/uL [place] # (Auto) 0.0 (0.0-0.8) K/uL Eos # (Auto) 0.0 (0.0-0.7) K/uL Baso # (Auto) 0.0 (0.0-0.1) K/uL Nucleated RBC % 0.0 /100WBC Nucleated RBCs # 0 K/uL INR APTT (18.6-31.3) SEC ABG pH (7.35-7.45) ABG pCO2 (35-45) mmHG ABG pO2 (75-100) mmHG ABG HCO3 (22-26) mEq/L ABG Total CO2 ABG Base Excess (-2.0-2.0) Lactate (0.20-2.00) mmol/L Sodium 142 (136-148) mmol/L Potassium 4.3 (3.5-5.1) mmol/L Chloride 105 (98-107) mmol/L Carbon Dioxide 34.0 H (21.0-32.0) mmol/L BUN 17 (7.0-18.0) mg/dL Creatinine 0.7 L (0.8-1.3) mg/dL Est Cr Clr Drug Dosing 106.24 Estimated GFR (MDRD) > 60.0 ml/min Glucose 172 H (74-106) mg/dL Calcium 8.8 (8.5-10.1) mg/dL Total Bilirubin 0.2 (0.2-1.0) mg/dL AST 12 L (15-37) IU/L ALT 14 (14-63) IU/L Alkaline Phosphatase 66 (46-116) U/L C-Reactive Protein (0.00-0.90) mg/dL Total Protein 6.3 L (6.4-8.2) g/dL Albumin 3.2 L (3.4-5.0) g/dL Globulin 3.1 (2.6-4.0) g/dL Albumin/Globulin Ratio 1.0 (0.9-1.6) Urine Color YELLOW Urine Appearance HAZY Urine pH 6.0 (5.0-8.0) Ur Specific [place] >= 1.030 (1.001-1.035) Urine Protein NEGATIVE (NEGATIVE) mg/dL Urine Glucose (UA) NEGATIVE (NEGATIVE) mg/dL Urine Ketones NEGATIVE (NEGATIVE) mg/dL Urine Occult Blood NEGATIVE (NEGATIVE) Urine Nitrite NEGATIVE (NEGATIVE) Urine Bilirubin SMALL H (NEGATIVE) Urine Ictotest NEGATIVE Urine Urobilinogen 0.2 (<2.0) EU/dL Ur Leukocyte Esterase SMALL H (NEGATIVE) Urine RBC 0-2 (0-2/HPF) Urine WBC 1-3 (0-5/HPF) Ur Epithelial Cells RARE (NONE-FEW) Urine Bacteria FEW (NEGATIVE) Jose Manuel Results Last 24 Hours: Microbiology 04/30/18 23:14 Gram Stain - Preliminary Sputum - Expectorated 04/30/18 21:00 Influenza Type A Antigen Screen - Final Nasopharyngeal Swab NEGATIVE INFLUENZA A VIRUS AG Influenza Type B Antigen Screen - Final NEGATIVE INFLUENZA B VIRUS AG Med Orders - Current: Current Medications Acetaminophen (Tylenol) 650 mg PO Q4H PRN PRN Reason: Pain (Mild 1-3)/fever Albuterol/Ipratropium (Duoneb 3.0-0.5 Mg/3 Ml) 3 ml NEB Q4HRRT [facility] Last Admin: 05/01/18 09:49 Dose: 3 ml Apixaban (Eliquis) 5 mg PO BID [facility] Last Admin: 05/01/18 09:29 Dose: 5 mg Azithromycin (Zithromax) 500 mg PO Q24H [facility] Last Admin: 04/30/18 21:22 Dose: 500 mg Budesonide/Formoterol Fumarate (Symbicort 160-4.5 Mcg) 0 gm INH BID [facility] Last Admin: 05/01/18 09:40 Dose: Not Given Docusate Sodium (Colace) 100 mg PO DAILY [facility] Last Admin: 05/01/18 09:29 Dose: 100 mg Ceftriaxone Sodium/Dextrose 1 (gm/ Premix) 50 mls @ 100 mls/hr IV Q24H [facility] Last Admin: 04/30/18 21:31 Dose: 100 mls/hr Lorazepam (Ativan) 1 mg IVPUSH BEDTIME PRN PRN Reason: Anxiety Methylprednisolone Sodium Succinate (Solu-Medrol) 125 mg IVPUSH Q12H [facility] Montelukast Sodium (Singulair) 10 mg PO BEDTIME [facility] Last Admin: 05/01/18 01:34 Dose: 10 mg Morphine Sulfate (Morphine) 2 mg IVPUSH Q2H PRN PRN Reason: Pain (severe 7-10) Stop: 05/01/18 19:15 Ondansetron HCl (Zofran) 4 mg IVPUSH Q4H PRN PRN Reason: Nausea/Vomiting Simvastatin (Zocor) 20 mg PO BEDTIME [facility] Last Admin: 05/01/18 01:34 Dose: 20 mg Sodium Chloride (Saline Flush) 10 ml FLUSH ASDIRECTED PRN PRN Reason: Keep Vein Open Last Admin: 04/30/18 19:07 Dose: 10 ml Sodium Chloride (Saline Flush) 2.5 ml FLUSH ASDIRECTED PRN PRN Reason: Keep Vein Open Last Admin: 04/30/18 19:07 Dose: 2.5 ml Trazodone HCl (Trazodone) 100 mg PO BEDTIME [facility] Last Admin: 05/01/18 01:34 Dose: 100 mg Discontinued Medications Albuterol/Ipratropium (Duoneb 3.0-0.5 Mg/3 Ml) 3 ml NEB Q4HRRT PRN PRN Reason: Shortness Of Breath/wheezing Levofloxacin/Dextrose 500 mg/ (Premix) 100 mls @ 100 mls/hr IV ONETIME ONE Stop: 04/30/18 19:42 Last Admin: 04/30/18 19:07 Dose: 100 mls/hr Methylprednisolone Sodium Succinate (Solu-Medrol) 125 mg IVPUSH Q6H [facility] Methylprednisolone Sodium Succinate (Solu-Medrol) 125 mg IVPUSH Q6H [facility] Last Admin: 05/01/18 09:30 Dose: 125 mg Morphine Sulfate (Morphine) 2 mg IVPUSH Q2H PRN PRN Reason: Pain (severe 7-10) Stop: 05/01/18 19:15 Sodium Chloride (Saline Flush) 10 ml FLUSH ASDIRECTED PRN PRN Reason: Keep Vein Open Sodium Chloride (Saline Flush) 2.5 ml FLUSH ASDIRECTED PRN PRN Reason: Keep Vein Open Sodium Chloride (Normal Saline) 10 ml IV ASDIRECTED PRN PRN Reason: IV Use - Exam General: Alert, Oriented Lungs: Decreased Breath Sounds, Wheezing Cardiovascular: Regular Rate, Regular Rhythm GI/Abdominal Exam: Soft, Non-Tender Extremities: Non-Tender, No Pedal Edema Skin: Warm, Dry, Intact Neurological: No New Focal Deficit - Problem List Review Problem List Initiated/Reviewed/Updated: Yes - My Orders Last 24 Hours: My Active Orders 05/01/18 01:21 RT Post Treatment Assessment [RC] Click to Edit RT Pre-Treatment Assessment [RC] Click to Edit 05/01/18 01:23 Montelukast [Singulair] 10 mg PO BEDTIME Simvastatin [Zocor] 20 mg PO BEDTIME 05/01/18 01:24 traZODone 100 mg PO BEDTIME 05/01/18 09:00 Budesonide/Formoterol [Symbicort 160-4.5 MCG] 0 gm INH BID Docusate Sodium [Colace] 100 mg PO DAILY 05/01/18 12:30 methylPREDNISolone Sod Succ [Solu-MEDROL] 125 mg IVPUSH Q12H 05/02/18 05:11 BASIC METABOLIC PANEL,BMP [CHEM] AM CBC WITH AUTO DIFF [HEME] AM 05/03/18 05:11 BASIC METABOLIC PANEL,BMP [CHEM] AM CBC WITH AUTO DIFF [HEME] AM - Plan Plan:: This is a 72-year-old male with a past medical history of COPD admitted with pneumonia and copd exacerbation. We will continue treatments of Rocephin azithromycin, duonebs and solumedrol
[2018-05-01] MEDS ORDERED: Diltiazem 120 MG Cap.CD PO ONE (17:44)
[2018-05-01] MEDS: Azithromycin 250 MG Tab PO SCH (19:00)
[2018-05-01] MEDS: cefTRIAXone 1 GM in Premix Bag 1 BAG IV SCH (20:11)
[2018-05-01] MEDS: ALPRAZolam 0.5 MG Tab PO SCH (22:16)
[2018-05-02] MEDS: Albuterol/Ipratropium 3.0-0.5 MG/3 ML Neb Soln NEB SCH ×6 (01:54→21:15)
[2018-05-02 06:01] LABS: CHLORIDE,CL 105 mmol/L (98-107); SODIUM,NA 142 mmol/L (136-148)
[2018-05-02] MEDS: Docusate Sodium 100 MG Cap PO SCH (09:05)
[2018-05-02] MEDS: Apixaban 5 MG Tab PO SCH ×2 (09:05→20:43)
[2018-05-02] MEDS: methylPREDNISolone Sodium Succinate 125 MG/2 ML SDV IVPUSH SCH ×2 (09:06→22:06)
[2018-05-02] MEDS: Budesonide/Formoterol 160-4.5 MCG/Puff 6 GM Inhaler INH SCH ×2 (09:43→21:15)
--- NOTE | 2018-05-02 12:05 | PCM.PN ---
- General Info Date of Service: 05/02/18 - Review of Systems Systems Review Comment:: feeling better - Patient Data Vitals - Most Recent: Last Vital Signs Temp 35.8 C 05/02/18 08:00 Pulse 86 05/02/18 08:00 Resp 18 05/02/18 04:30 BP 119/63 05/02/18 08:00 Pulse Ox 93 L 05/02/18 04:30 Weight - Most Recent: 5.996 kg I&O - Last 24 Hours: Intake & Output 05/01/18 05/02/18 05/02/18 21:59 06:59 14:59 Intake Total Output Total Balance Lab Results Last 24 Hours: Laboratory Results - last 24 hr 05/02/18 05/02/18 Range/Units 05:26 05:26 WBC 4.92 (4.0-11.0) K/uL RBC 3.81 L (4.50-5.90) M/uL Hgb 11.5 L (13.0-17.0) g/dL Hct 36.0 L (38.0-50.0) % MCV 94.5 (80.0-98.0) fL MCH 30.2 (27.0-32.0) pg MCHC 31.9 (31.0-37.0) g/dL RDW Std Deviation 46.9 (28.0-62.0) fl RDW Coeff of Giacomo 14 (11.0-15.0) % Plt Count 154 (150-400) K/uL MPV 9.70 (7.40-12.00) fL Neut % (Auto) 84.5 H (48.0-80.0) % Lymph % (Auto) 11.2 L (16.0-40.0) % [place] % (Auto) 4.3 (0.0-15.0) % Eos % (Auto) 0.0 (0.0-7.0) % Baso % (Auto) 0.0 (0.0-1.5) % Neut # (Auto) 4.2 (1.4-5.7) K/uL Lymph # (Auto) 0.6 (0.6-2.4) K/uL [place] # (Auto) 0.2 (0.0-0.8) K/uL Eos # (Auto) 0.0 (0.0-0.7) K/uL Baso # (Auto) 0.0 (0.0-0.1) K/uL Nucleated RBC % 0.0 /100WBC Nucleated RBCs # 0 K/uL Sodium 142 (136-148) mmol/L Potassium 4.1 (3.5-5.1) mmol/L Chloride 105 (98-107) mmol/L Carbon Dioxide 34.1 H (21.0-32.0) mmol/L BUN 23 H (7.0-18.0) mg/dL Creatinine 0.6 L (0.8-1.3) mg/dL Est Cr Clr Drug Dosing 123.94 mL/min Estimated GFR (MDRD) > 60.0 ml/min Glucose 181 H (74-106) mg/dL Calcium 8.7 (8.5-10.1) mg/dL Jose Manuel Results Last 24 Hours: Microbiology 04/30/18 23:14 Gram Stain - Final Sputum - Expectorated 04/30/18 21:45 Urine Culture - Final Urine, Bladder MIXED ZANDER <1000 CFU/ML 04/30/18 18:15 Aerobic Blood Culture - Preliminary Blood - Venous - Lab Draw NO GROWTH AFTER 1 DAY Anaerobic Blood Culture - Preliminary NO GROWTH AFTER 1 DAY 04/30/18 17:21 Aerobic Blood Culture - Preliminary Blood - Venous - Iv Start NO GROWTH AFTER 1 DAY Anaerobic Blood Culture - Preliminary NO GROWTH AFTER 1 DAY Med Orders - Current: Current Medications Acetaminophen (Tylenol) 650 mg PO Q4H PRN PRN Reason: Pain (Mild 1-3)/fever Albuterol/Ipratropium (Duoneb 3.0-0.5 Mg/3 Ml) 3 ml NEB Q4HRRT [facility] Last Admin: 05/02/18 09:43 Dose: 3 ml Alprazolam (Xanax) 1 mg PO BEDTIME [facility] Last Admin: 05/01/18 22:16 Dose: 1 mg Apixaban (Eliquis) 5 mg PO BID [facility] Last Admin: 05/02/18 09:05 Dose: 5 mg Azithromycin (Zithromax) 500 mg PO Q24H [facility] Last Admin: 05/01/18 19:00 Dose: 500 mg Budesonide/Formoterol Fumarate (Symbicort 160-4.5 Mcg) 0 gm INH BID [facility] Last Admin: 05/02/18 09:43 Dose: 1 mdi Docusate Sodium (Colace) 100 mg PO DAILY [facility] Last Admin: 05/02/18 09:05 Dose: 100 mg Ceftriaxone Sodium/Dextrose 1 (gm/ Premix) 50 mls @ 100 mls/hr IV Q24H [facility] Last Admin: 05/01/18 20:11 Dose: 100 mls/hr Methylprednisolone Sodium Succinate (Solu-Medrol) 125 mg IVPUSH Q12H [facility] Last Admin: 05/02/18 09:06 Dose: 125 mg Montelukast Sodium (Singulair) 10 mg PO BEDTIME [facility] Last Admin: 05/01/18 21:03 Dose: 10 mg Ondansetron HCl (Zofran) 4 mg IVPUSH Q4H PRN PRN Reason: Nausea/Vomiting Simvastatin (Zocor) 20 mg PO BEDTIME [facility] Last Admin: 05/01/18 21:02 Dose: 20 mg Sodium Chloride (Saline Flush) 10 ml FLUSH ASDIRECTED PRN PRN Reason: Keep Vein Open Last Admin: 04/30/18 19:07 Dose: 10 ml Sodium Chloride (Saline Flush) 2.5 ml FLUSH ASDIRECTED PRN PRN Reason: Keep Vein Open Last Admin: 04/30/18 19:07 Dose: 2.5 ml Trazodone HCl (Trazodone) 100 mg PO BEDTIME [facility] Last Admin: 05/01/18 21:02 Dose: 100 mg Discontinued Medications Albuterol/Ipratropium (Duoneb 3.0-0.5 Mg/3 Ml) 3 ml NEB Q4HRRT PRN PRN Reason: Shortness Of Breath/wheezing Diltiazem HCl (Cardizem Cd) 120 mg PO ONETIME ONE Stop: 05/01/18 17:45 Last Admin: 05/01/18 18:00 Dose: 120 mg Levofloxacin/Dextrose 500 mg/ (Premix) 100 mls @ 100 mls/hr IV ONETIME ONE Stop: 04/30/18 19:42 Last Admin: 04/30/18 19:07 Dose: 100 mls/hr Lorazepam (Ativan) 1 mg IVPUSH BEDTIME PRN PRN Reason: Anxiety Methylprednisolone Sodium Succinate (Solu-Medrol) 125 mg IVPUSH Q6H [facility] Methylprednisolone Sodium Succinate (Solu-Medrol) 125 mg IVPUSH Q6H [facility] Last Admin: 05/01/18 09:30 Dose: 125 mg Methylprednisolone Sodium Succinate (Solu-Medrol) 125 mg IVPUSH Q12H [facility] Last Admin: 05/01/18 12:55 Dose: Not Given Morphine Sulfate (Morphine) 2 mg IVPUSH Q2H PRN PRN Reason: Pain (severe 7-10) Stop: 05/01/18 19:15 Morphine Sulfate (Morphine) 2 mg IVPUSH Q2H PRN PRN Reason: Pain (severe 7-10) Stop: 05/01/18 19:15 Sodium Chloride (Saline Flush) 10 ml FLUSH ASDIRECTED PRN PRN Reason: Keep Vein Open Sodium Chloride (Saline Flush) 2.5 ml FLUSH ASDIRECTED PRN PRN Reason: Keep Vein Open Sodium Chloride (Normal Saline) 10 ml IV ASDIRECTED PRN PRN Reason: IV Use - Exam General: Alert, Oriented Lungs: Clear to Auscultation, Normal Respiratory Effort Cardiovascular: Regular Rate, Regular Rhythm GI/Abdominal Exam: Soft, Non-Tender Extremities: Non-Tender, No Pedal Edema Skin: Warm, Dry, Intact - Problem List Review Problem List Initiated/Reviewed/Updated: Yes - My Orders Last 24 Hours: My Active Orders 05/01/18 21:00 ALPRAZolam [Xanax] 1 mg PO BEDTIME 05/01/18 21:30 methylPREDNISolone Sod Succ [Solu-MEDROL] 125 mg IVPUSH Q12H 05/03/18 05:11 BASIC METABOLIC PANEL,BMP [CHEM] AM CBC WITH AUTO DIFF [HEME] AM - Plan Plan:: This is a 72-year-old male with a past medical history of COPD admitted with pneumonia and copd exacerbation. We will continue treatments of Rocephin azithromycin, duonebs and solumedrol. Likely discharge home tomorrow.
[2018-05-02] MEDS: Azithromycin 250 MG Tab PO SCH (18:32)
[2018-05-02] MEDS: cefTRIAXone 1 GM in Premix Bag 1 BAG IV SCH (20:33)
[2018-05-02] MEDS: Simvastatin 20 MG Tab PO SCH (20:35)
[2018-05-02] MEDS: Montelukast 10 MG Tab PO SCH (20:36)
[2018-05-02] MEDS: traZODone 50 MG Tab PO SCH (20:37)
[2018-05-02] MEDS: ALPRAZolam 0.5 MG Tab PO SCH (20:43)
[2018-05-03] MEDS: Albuterol/Ipratropium 3.0-0.5 MG/3 ML Neb Soln NEB SCH ×6 (02:10→21:46)
[2018-05-03 05:59] LABS: CHLORIDE,CL 104 mmol/L (98-107); SODIUM,NA 141 mmol/L (136-148)
[2018-05-03] MEDS: Docusate Sodium 100 MG Cap PO SCH (09:07)
[2018-05-03] MEDS: methylPREDNISolone Sodium Succinate 125 MG/2 ML SDV IVPUSH SCH ×2 (09:07→21:20)
[2018-05-03] MEDS: Apixaban 5 MG Tab PO SCH ×2 (09:07→20:26)
[2018-05-03] MEDS: Budesonide/Formoterol 160-4.5 MCG/Puff 6 GM Inhaler INH SCH ×2 (09:49→20:33)
--- NOTE | 2018-05-03 10:17 | PCM.PN ---
- General Info Date of Service: 05/03/18 Subjective Update: Patient reports he feels the same as yesterday and is frustrated that he is not improving at a faster rate. He denies chest pain or abdominal pain. He reports still feeling short of breath. He is requiring 4 L of O2 which is his home requirement. He reports he is eating, drinking, and going to the bathroom without difficulty. - Review of Systems General: Reports: No Symptoms HEENT: Reports: No Symptoms Pulmonary: Reports: Shortness of Breath Cardiovascular: Reports: No Symptoms Gastrointestinal: Reports: No Symptoms Genitourinary: Reports: No Symptoms Musculoskeletal: Reports: No Symptoms Skin: Reports: No Symptoms Neurological: Reports: No Symptoms Psychiatric: Reports: No Symptoms - Patient Data Vitals - Most Recent: Last Vital Signs Temp 97.6 F 05/03/18 08:00 Pulse 98 05/03/18 08:00 Resp 19 05/03/18 08:00 BP 121/70 05/03/18 08:00 Pulse Ox 98 05/03/18 08:00 Weight - Most Recent: 95.935 kg I&O - Last 24 Hours: Intake & Output 05/02/18 05/03/18 05/03/18 22:59 06:59 14:59 Intake Total 220 830 Output Total 250 Balance 220 580 Lab Results Last 24 Hours: Laboratory Results - last 24 hr 05/03/18 05/03/18 Range/Units 05:26 05:26 WBC 6.48 (4.0-11.0) K/uL RBC 4.03 L (4.50-5.90) M/uL Hgb 12.2 L (13.0-17.0) g/dL Hct 38.4 (38.0-50.0) % MCV 95.3 (80.0-98.0) fL MCH 30.3 (27.0-32.0) pg MCHC 31.8 (31.0-37.0) g/dL RDW Std Deviation 47.3 (28.0-62.0) fl RDW Coeff of Giacomo 14 (11.0-15.0) % Plt Count 182 (150-400) K/uL MPV 9.90 (7.40-12.00) fL Neut % (Auto) 87.3 H (48.0-80.0) % Lymph % (Auto) 8.8 L (16.0-40.0) % [place] % (Auto) 3.9 (0.0-15.0) % Eos % (Auto) 0.0 (0.0-7.0) % Baso % (Auto) 0.0 (0.0-1.5) % Neut # (Auto) 5.7 (1.4-5.7) K/uL Lymph # (Auto) 0.6 (0.6-2.4) K/uL Josephine # (Auto) 0.3 (0.0-0.8) K/uL Eos # (Auto) 0.0 (0.0-0.7) K/uL Baso # (Auto) 0.0 (0.0-0.1) K/uL Nucleated RBC % 0.0 /100WBC Nucleated RBCs # 0 K/uL Sodium 141 (136-148) mmol/L Potassium 4.2 (3.5-5.1) mmol/L Chloride 104 (98-107) mmol/L Carbon Dioxide 36.7 H (21.0-32.0) mmol/L BUN 20 H (7.0-18.0) mg/dL Creatinine 0.7 L (0.8-1.3) mg/dL Est Cr Clr Drug Dosing 8.21 mL/min Estimated GFR (MDRD) > 60.0 ml/min Glucose 161 H (74-106) mg/dL Calcium 9.0 (8.5-10.1) mg/dL Jose Manuel Results Last 24 Hours: Microbiology 04/30/18 23:14 Gram Stain - Final Sputum - Expectorated Sputum Culture - Final Normal Respiratory Zander YEAST 04/30/18 18:15 Aerobic Blood Culture - Preliminary Blood - Venous - Lab Draw NO GROWTH AFTER 2 DAYS Anaerobic Blood Culture - Preliminary NO GROWTH AFTER 2 DAYS 04/30/18 17:21 Aerobic Blood Culture - Preliminary Blood - Venous - Iv Start NO GROWTH AFTER 2 DAYS Anaerobic Blood Culture - Preliminary NO GROWTH AFTER 2 DAYS 04/30/18 21:45 Urine Culture - Final Urine, Bladder MIXED ZANDER <1000 CFU/ML Med Orders - Current: Current Medications Acetaminophen (Tylenol) 650 mg PO Q4H PRN PRN Reason: Pain (Mild 1-3)/fever Last Admin: 05/02/18 20:37 Dose: 650 mg Albuterol/Ipratropium (Duoneb 3.0-0.5 Mg/3 Ml) 3 ml NEB Q4HRRT [facility] Last Admin: 05/03/18 09:49 Dose: 3 ml Alprazolam (Xanax) 1 mg PO BEDTIME [facility] Last Admin: 05/02/18 20:43 Dose: 1 mg Apixaban (Eliquis) 5 mg PO BID [facility] Last Admin: 05/03/18 09:07 Dose: 5 mg Azithromycin (Zithromax) 500 mg PO Q24H [facility] Last Admin: 05/02/18 18:32 Dose: 500 mg Budesonide/Formoterol Fumarate (Symbicort 160-4.5 Mcg) 0 gm INH BID [facility] Last Admin: 05/03/18 09:49 Dose: 1 mdi Docusate Sodium (Colace) 100 mg PO DAILY [facility] Last Admin: 05/03/18 09:07 Dose: 100 mg Ceftriaxone Sodium/Dextrose 1 (gm/ Premix) 50 mls @ 100 mls/hr IV Q24H [facility] Last Admin: 05/02/18 20:33 Dose: 100 mls/hr Methylprednisolone Sodium Succinate (Solu-Medrol) 125 mg IVPUSH Q12H [facility] Last Admin: 05/03/18 09:07 Dose: 125 mg Montelukast Sodium (Singulair) 10 mg PO BEDTIME [facility] Last Admin: 05/02/18 20:36 Dose: 10 mg Ondansetron HCl (Zofran) 4 mg IVPUSH Q4H PRN PRN Reason: Nausea/Vomiting Simvastatin (Zocor) 20 mg PO BEDTIME [facility] Last Admin: 05/02/18 20:35 Dose: 20 mg Sodium Chloride (Saline Flush) 10 ml FLUSH ASDIRECTED PRN PRN Reason: Keep Vein Open Last Admin: 04/30/18 19:07 Dose: 10 ml Sodium Chloride (Saline Flush) 2.5 ml FLUSH ASDIRECTED PRN PRN Reason: Keep Vein Open Last Admin: 04/30/18 19:07 Dose: 2.5 ml Trazodone HCl (Trazodone) 100 mg PO BEDTIME [facility] Last Admin: 05/02/18 20:37 Dose: 100 mg Discontinued Medications Albuterol/Ipratropium (Duoneb 3.0-0.5 Mg/3 Ml) 3 ml NEB Q4HRRT PRN PRN Reason: Shortness Of Breath/wheezing Diltiazem HCl (Cardizem Cd) 120 mg PO ONETIME ONE Stop: 05/01/18 17:45 Last Admin: 05/01/18 18:00 Dose: 120 mg Levofloxacin/Dextrose 500 mg/ (Premix) 100 mls @ 100 mls/hr IV ONETIME ONE Stop: 04/30/18 19:42 Last Admin: 04/30/18 19:07 Dose: 100 mls/hr Lorazepam (Ativan) 1 mg IVPUSH BEDTIME PRN PRN Reason: Anxiety Methylprednisolone Sodium Succinate (Solu-Medrol) 125 mg IVPUSH Q6H [facility] Methylprednisolone Sodium Succinate (Solu-Medrol) 125 mg IVPUSH Q6H [facility] Last Admin: 05/01/18 09:30 Dose: 125 mg Methylprednisolone Sodium Succinate (Solu-Medrol) 125 mg IVPUSH Q12H [facility] Last Admin: 05/01/18 12:55 Dose: Not Given Morphine Sulfate (Morphine) 2 mg IVPUSH Q2H PRN PRN Reason: Pain (severe 7-10) Stop: 05/01/18 19:15 Morphine Sulfate (Morphine) 2 mg IVPUSH Q2H PRN PRN Reason: Pain (severe 7-10) Stop: 05/01/18 19:15 Sodium Chloride (Saline Flush) 10 ml FLUSH ASDIRECTED PRN PRN Reason: Keep Vein Open Sodium Chloride (Saline Flush) 2.5 ml FLUSH ASDIRECTED PRN PRN Reason: Keep Vein Open Sodium Chloride (Normal Saline) 10 ml IV ASDIRECTED PRN PRN Reason: IV Use - Exam Quality Assessment: Supplemental Oxygen General: Alert, Oriented Lungs: Decreased Breath Sounds Cardiovascular: Regular Rate, Regular Rhythm GI/Abdominal Exam: Normal Bowel Sounds, Soft, Non-Tender, No Distention Extremities: No Pedal Edema Skin: Warm, Dry, Intact Wound/Incisions: Healing Well Neurological: No New Focal Deficit Psy/Mental Status: Alert, Normal Affect, Normal Mood - Problem List Review Problem List Initiated/Reviewed/Updated: Yes - My Orders Last 24 Hours: My Active Orders 05/03/18 08:02 Code Status [Resuscitation Status] Routine - Plan Plan:: 1. Community acquired pneumonia. 2. COPD exacerbation Plan- continue antibiotics (Rocephin and azithromycin), duobnebs, and solumedrol. We will switch him to inpatient status. Possible discharge tomorrow.
[2018-05-03] MEDS: Azithromycin 250 MG Tab PO SCH (18:41)
[2018-05-03] MEDS: Montelukast 10 MG Tab PO SCH (20:26)
[2018-05-03] MEDS: traZODone 50 MG Tab PO SCH (20:27)
[2018-05-03] MEDS: Simvastatin 20 MG Tab PO SCH (20:27)
[2018-05-03] MEDS: ALPRAZolam 0.5 MG Tab PO SCH (20:28)
[2018-05-03] MEDS: cefTRIAXone 1 GM in Premix Bag 1 BAG IV SCH (20:30)
[2018-05-04] MEDS: Albuterol/Ipratropium 3.0-0.5 MG/3 ML Neb Soln NEB SCH ×6 (01:42→21:15)
[2018-05-04 06:46] LABS: CHLORIDE,CL 101 mmol/L (98-107); SODIUM,NA 142 mmol/L (136-148)
[2018-05-04] MEDS: Apixaban 5 MG Tab PO SCH ×2 (08:59→21:10)
[2018-05-04] MEDS: methylPREDNISolone Sodium Succinate 125 MG/2 ML SDV IVPUSH SCH ×2 (08:59→21:14)
[2018-05-04] MEDS: Docusate Sodium 100 MG Cap PO SCH (08:59)
[2018-05-04] MEDS: Budesonide/Formoterol 160-4.5 MCG/Puff 6 GM Inhaler INH SCH ×2 (09:58→21:00)
--- NOTE | 2018-05-04 11:03 | PCM.PN ---
- General Info Date of Service: 05/04/18 Subjective Update: The patient is a 72 year old male originally admitted for COPD ex and pneumonia. He is at his baseline home oxygen of 4 L. He is frustrated that he is not improving more rapidly. He denies chest pain, palpitations, or abdominal pain. When speaking to his yesterday, she sees huge improvements. Before admission, she states he couldn't even get up and move around the room, which he is now doing. - Review of Systems General: Reports: No Symptoms HEENT: Reports: No Symptoms Pulmonary: Reports: Shortness of Breath Cardiovascular: Reports: No Symptoms Gastrointestinal: Reports: No Symptoms Genitourinary: Reports: No Symptoms Musculoskeletal: Reports: No Symptoms Skin: Reports: No Symptoms Neurological: Reports: No Symptoms Psychiatric: Reports: No Symptoms - Patient Data Vitals - Most Recent: Last Vital Signs Temp 97.4 F 05/04/18 08:00 Pulse 97 05/04/18 08:00 Resp 16 05/04/18 08:00 BP 131/67 05/04/18 08:00 Pulse Ox 95 05/04/18 08:00 Weight - Most Recent: 96.615 kg I&O - Last 24 Hours: Intake & Output 05/03/18 05/04/18 05/04/18 22:59 06:59 14:59 Intake Total 680 400 Output Total 825 250 Balance -145 150 Lab Results Last 24 Hours: Laboratory Results - last 24 hr 05/04/18 05/04/18 Range/Units 06:07 06:07 WBC 6.97 (4.0-11.0) K/uL RBC 4.22 L (4.50-5.90) M/uL Hgb 12.9 L (13.0-17.0) g/dL Hct 40.1 (38.0-50.0) % MCV 95.0 (80.0-98.0) fL MCH 30.6 (27.0-32.0) pg MCHC 32.2 (31.0-37.0) g/dL RDW Std Deviation 47.7 (28.0-62.0) fl RDW Coeff of Giacomo 14 (11.0-15.0) % Plt Count 175 (150-400) K/uL MPV 10.10 (7.40-12.00) fL Neut % (Auto) 87.0 H (48.0-80.0) % Lymph % (Auto) 8.0 L (16.0-40.0) % [place] % (Auto) 5.0 (0.0-15.0) % Eos % (Auto) 0.0 (0.0-7.0) % Baso % (Auto) 0.0 (0.0-1.5) % Neut # (Auto) 6.1 H (1.4-5.7) K/uL Lymph # (Auto) 0.6 (0.6-2.4) K/uL [place] # (Auto) 0.4 (0.0-0.8) K/uL Eos # (Auto) 0.0 (0.0-0.7) K/uL Baso # (Auto) 0.0 (0.0-0.1) K/uL Nucleated RBC % 0.0 /100WBC Nucleated RBCs # 0 K/uL Sodium 142 (136-148) mmol/L Potassium 4.4 (3.5-5.1) mmol/L Chloride 101 (98-107) mmol/L Carbon Dioxide 37.4 H (21.0-32.0) mmol/L BUN 22 H (7.0-18.0) mg/dL Creatinine 0.8 (0.8-1.3) mg/dL Est Cr Clr Drug Dosing 92.96 mL/min Estimated GFR (MDRD) > 60.0 ml/min Glucose 198 H (74-106) mg/dL Calcium 8.9 (8.5-10.1) mg/dL Jose Manuel Results Last 24 Hours: Microbiology 04/30/18 18:15 Aerobic Blood Culture - Preliminary Blood - Venous - Lab Draw NO GROWTH AFTER 3 DAYS Anaerobic Blood Culture - Preliminary NO GROWTH AFTER 3 DAYS 04/30/18 17:21 Aerobic Blood Culture - Preliminary Blood - Venous - Iv Start NO GROWTH AFTER 3 DAYS Anaerobic Blood Culture - Preliminary NO GROWTH AFTER 3 DAYS Med Orders - Current: Current Medications Acetaminophen (Tylenol) 650 mg PO Q4H PRN PRN Reason: Pain (Mild 1-3)/fever Last Admin: 05/02/18 20:37 Dose: 650 mg Albuterol/Ipratropium (Duoneb 3.0-0.5 Mg/3 Ml) 3 ml NEB Q4HRRT [facility] Last Admin: 05/04/18 09:56 Dose: 3 ml Alprazolam (Xanax) 1 mg PO BEDTIME [facility] Last Admin: 05/03/18 20:28 Dose: 1 mg Apixaban (Eliquis) 5 mg PO BID [facility] Last Admin: 05/04/18 08:59 Dose: 5 mg Azithromycin (Zithromax) 500 mg PO Q24H [facility] Last Admin: 05/03/18 18:41 Dose: 500 mg Budesonide/Formoterol Fumarate (Symbicort 160-4.5 Mcg) 0 gm INH BID [facility] Last Admin: 05/04/18 09:58 Dose: 1 puff Docusate Sodium (Colace) 100 mg PO DAILY [facility] Last Admin: 05/04/18 08:59 Dose: 100 mg Ceftriaxone Sodium/Dextrose 1 (gm/ Premix) 50 mls @ 100 mls/hr IV Q24H [facility] Last Admin: 05/03/18 20:30 Dose: 100 mls/hr Methylprednisolone Sodium Succinate (Solu-Medrol) 125 mg IVPUSH Q12H [facility] Last Admin: 05/04/18 08:59 Dose: 125 mg Montelukast Sodium (Singulair) 10 mg PO BEDTIME [facility] Last Admin: 05/03/18 20:26 Dose: 10 mg Ondansetron HCl (Zofran) 4 mg IVPUSH Q4H PRN PRN Reason: Nausea/Vomiting Simvastatin (Zocor) 20 mg PO BEDTIME [facility] Last Admin: 05/03/18 20:27 Dose: 20 mg Sodium Chloride (Saline Flush) 10 ml FLUSH ASDIRECTED PRN PRN Reason: Keep Vein Open Last Admin: 04/30/18 19:07 Dose: 10 ml Sodium Chloride (Saline Flush) 2.5 ml FLUSH ASDIRECTED PRN PRN Reason: Keep Vein Open Last Admin: 04/30/18 19:07 Dose: 2.5 ml Trazodone HCl (Trazodone) 100 mg PO BEDTIME [facility] Last Admin: 05/03/18 20:27 Dose: 100 mg Discontinued Medications Albuterol/Ipratropium (Duoneb 3.0-0.5 Mg/3 Ml) 3 ml NEB Q4HRRT PRN PRN Reason: Shortness Of Breath/wheezing Diltiazem HCl (Cardizem Cd) 120 mg PO ONETIME ONE Stop: 05/01/18 17:45 Last Admin: 05/01/18 18:00 Dose: 120 mg Levofloxacin/Dextrose 500 mg/ (Premix) 100 mls @ 100 mls/hr IV ONETIME ONE Stop: 04/30/18 19:42 Last Admin: 04/30/18 19:07 Dose: 100 mls/hr Lorazepam (Ativan) 1 mg IVPUSH BEDTIME PRN PRN Reason: Anxiety Methylprednisolone Sodium Succinate (Solu-Medrol) 125 mg IVPUSH Q6H [facility] Methylprednisolone Sodium Succinate (Solu-Medrol) 125 mg IVPUSH Q6H [facility] Last Admin: 05/01/18 09:30 Dose: 125 mg Methylprednisolone Sodium Succinate (Solu-Medrol) 125 mg IVPUSH Q12H [facility] Last Admin: 05/01/18 12:55 Dose: Not Given Morphine Sulfate (Morphine) 2 mg IVPUSH Q2H PRN PRN Reason: Pain (severe 7-10) Stop: 05/01/18 19:15 Morphine Sulfate (Morphine) 2 mg IVPUSH Q2H PRN PRN Reason: Pain (severe 7-10) Stop: 05/01/18 19:15 Sodium Chloride (Saline Flush) 10 ml FLUSH ASDIRECTED PRN PRN Reason: Keep Vein Open Sodium Chloride (Saline Flush) 2.5 ml FLUSH ASDIRECTED PRN PRN Reason: Keep Vein Open Sodium Chloride (Normal Saline) 10 ml IV ASDIRECTED PRN PRN Reason: IV Use - Exam General: Alert, Oriented Lungs: Normal Respiratory Effort, Decreased Breath Sounds Cardiovascular: Regular Rate, Regular Rhythm GI/Abdominal Exam: Normal Bowel Sounds, Soft, Non-Tender, No Distention Extremities: No Pedal Edema Skin: Warm, Dry, Intact Neurological: No New Focal Deficit Psy/Mental Status: Alert, Normal Affect, Agitated - Problem List Review Problem List Initiated/Reviewed/Updated: Yes - My Orders Last 24 Hours: My Active Orders 05/03/18 10:32 Admission Status [Patient Status] [ADT] Routine - Plan Plan:: 1. Community acquired pneumonia. 2. COPD exacerbation Plan- continue antibiotics (Rocephin and azithromycin), duobnebs, and solumedrol. Possible discharge home tomorrow.
[2018-05-04] MEDS: Azithromycin 250 MG Tab PO SCH (19:05)
[2018-05-04] MEDS: cefTRIAXone 1 GM in Premix Bag 1 BAG IV SCH (19:44)
[2018-05-04] MEDS: ALPRAZolam 0.5 MG Tab PO SCH (21:00)
[2018-05-04] MEDS: Simvastatin 20 MG Tab PO SCH (21:10)
[2018-05-04] MEDS: Montelukast 10 MG Tab PO SCH (21:10)
[2018-05-04] MEDS: traZODone 50 MG Tab PO SCH (21:11)
[2018-05-05] MEDS: Albuterol/Ipratropium 3.0-0.5 MG/3 ML Neb Soln NEB SCH ×3 (02:00→09:29)
[2018-05-05 06:12] LABS: CHLORIDE,CL 101 mmol/L (98-107); SODIUM,NA 142 mmol/L (136-148)
[2018-05-05] MEDS: Docusate Sodium 100 MG Cap PO SCH (09:27)
[2018-05-05] MEDS: methylPREDNISolone Sodium Succinate 125 MG/2 ML SDV IVPUSH SCH (09:27)
[2018-05-05] MEDS: Apixaban 5 MG Tab PO SCH (09:27)
[2018-05-05] MEDS: Budesonide/Formoterol 160-4.5 MCG/Puff 6 GM Inhaler INH SCH (09:29)
--- NOTE | 2018-05-05 10:52 | PCM.DCSUM1 ---
Discharge Summary - Hospital Course HPI Initial Comments: Admission Date:04/30/18 Discharge Date: 05/05/18 Admission Diagnosis: 1.Community acquired pneumonia 2. COPD exacerbation 3. Chronic conditions- PE and hyperlipidemia Discharge Diagnosis: 1.Community acquired pneumonia 2. COPD exacerbation 3. Chronic conditions- PE and hyperlipidemia Procedures: None Consults: None Hospital Course: The patient is a 72-year-old male who presented to the ER with headache, weakness and increasing shortness of breath with cough and wheezing. He has a history of COPD and is on 4 L of oxygen at home but still felt short of breath and was wheezing despite the O2 therapy. In the ER workup included a chest x-ray that showed a lower left lobe pneumonia. A CT of the head for his headache which showed no acute changes but did show chronic small vessel ischemic changes. Lab work did not reveal an elevated white count. In the ER, he was started on antibiotics, steroids and given DuoNeb treatments. He was admitted to the medical/surgical floor. For her pneumonia and COPD exacerbation , IV steroids and antibiotics (rocephin and azithromycin) were continued, as well as DuoNeb's. He was continued on his home medications for his history of PE and hyperlipidemia. The patient never required more than his home O2 but he was still feeling short of breath throughout his stay and was slow to get better. His family did see dramatic improvement from what he was at home prior to admission. PT was ordered but the patient refused. By day of discharge, the patient's was at his home baseline oxygen requirement and was afebrile. His home medications will stay the same. He will continue antibiotics for a few more days and have a Medrol Dosepak taper. Disposition: Home Discharge Condition: Vitals stable at home O2 requirement, tolerating oral diet , ambulating without difficulty Discharge Instructions: Regular diet as tolerated, activity as tolerated, take medications as prescribed. Symptoms report physician include fever, chills, chest pain, shortness breath, abdominal pain, discharge, drainage, erythema, or not improving as expected Discharge Medications: Albuterol [Proventil HFA] 1 puff INH QID PRN 07/06/13 [History] Ipratropium [Atrovent HFA] 2 puff INH QID PRN 07/06/13 [History] Ipratropium/Albuterol Sulfate [Duoneb 0.5 mg-3 mg/3 ml Soln] 3 ml IH QID PRN [History] Simvastatin [Zocor] 20 mg PO BEDTIME 11/24/14 [History] traZODone 100 mg PO BEDTIME 11/24/14 [History] Docusate Sodium [Pedia-Lax Stool Softener] 50 mg PO DAILY 01/01/16 [History] ALPRAZolam [Xanax] 1 mg PO BEDTIME 04/18/16 [History] Budesonide/Formoterol Fumarate [Symbicort 160-4.5 Mcg Inhaler] 2 puff INH BID [History] Docusate Sodium [Colace Clear] 1 cap PO BID 04/18/16 [History] Montelukast [Singulair] 10 mg PO BEDTIME 04/18/16 [History] Apixaban [Eliquis] 5 mg PO BID 04/30/18 [History] Amoxicillin 500 mg PO TID Azithromycin [Zithromax] 500 mg PO Q24H methylPREDNISolone [Medrol] 4 mg PO DAILY dosepack Follow-up: Dr. Limon on 05/17/18 - Discharge Data Discharge Date: 05/05/18 Discharge Disposition: Home, Self-Care 01 Condition: Fair - Patient Summary/Data Consults: Consultations 04/30/18 19:14 PT Evaluation and Treatment [CONS] Routine Respiratory Care Assess and Treatment [CONS] Routine - Discharge Plan *PRESCRIPTION DRUG MONITORING PROGRAM REVIEWED*: No *COPY OF PRESCRIPTION DRUG MONITORING REPORT IN PATIENT LIZZIE: No Prescriptions/Med Rec: Amoxicillin 500 mg PO TID 3 Days #9 tab Azithromycin [Zithromax] 500 mg PO Q24H 3 Days #3 tablet methylPREDNISolone [Medrol] 4 mg PO DAILY 6 Days dospk Home Medications: Home Meds Albuterol [Proventil HFA] 1 puff INH QID PRN 07/06/13 [History] Ipratropium [Atrovent HFA] 2 puff INH QID PRN 07/06/13 [History] Ipratropium/Albuterol Sulfate [Duoneb 0.5 mg-3 mg/3 ml Soln] 3 ml IH QID PRN [History] Simvastatin [Zocor] 20 mg PO BEDTIME 11/24/14 [History] traZODone 100 mg PO BEDTIME 11/24/14 [History] Docusate Sodium [Pedia-Lax Stool Softener] 50 mg PO DAILY 01/01/16 [History] ALPRAZolam [Xanax] 1 mg PO BEDTIME 04/18/16 [History] Budesonide/Formoterol Fumarate [Symbicort 160-4.5 Mcg Inhaler] 2 puff INH BID [History] Docusate Sodium [Colace Clear] 1 cap PO BID 04/18/16 [History] Montelukast [Singulair] 10 mg PO BEDTIME 04/18/16 [History] Apixaban [Eliquis] 5 mg PO BID 04/30/18 [History] Amoxicillin 500 mg PO TID 3 Days #9 tab 05/05/18 [Rx] Azithromycin [Zithromax] 500 mg PO Q24H 3 Days #3 tablet 05/05/18 [Rx] methylPREDNISolone [Medrol] 4 mg PO DAILY 6 Days dospk 05/05/18 [Rx] Patient Handouts: Amoxicillin capsules or tablets, Azithromycin tablets, Methylprednisolone tablets, Community-Acquired Pneumonia, Adult, [id number] Referrals: [facility] [Outside] - 05/17/18 12:45 pm Guille Limon MD [Physician] - - Discharge Summary/Plan Comment DC Time >30 min.: No - Patient Data Vitals - Most Recent: Last Vital Signs Temp 96.9 F 05/05/18 08:00 Pulse 104 H 05/05/18 08:00 Resp 17 05/05/18 08:00 BP 140/74 05/05/18 08:00 Pulse Ox 94 L 05/05/18 08:00 Weight - Most Recent: 96.615 kg I&O - Last 24 hours: Intake & Output 05/04/18 05/05/18 05/05/18 22:59 06:59 14:59 Intake Total 500 400 Output Total 400 130 Balance 100 270 Lab Results - Last 24 hrs: Laboratory Results - last 24 hr 05/05/18 05/05/18 Range/Units 05:33 05:33 WBC 5.51 (4.0-11.0) K/uL RBC 4.24 L (4.50-5.90) M/uL Hgb 12.7 L (13.0-17.0) g/dL Hct 41.0 (38.0-50.0) % MCV 96.7 (80.0-98.0) fL MCH 30.0 (27.0-32.0) pg MCHC 31.0 (31.0-37.0) g/dL RDW Std Deviation 49.6 (28.0-62.0) fl RDW Coeff of Giacomo 14 (11.0-15.0) % Plt Count 173 (150-400) K/uL MPV 10.00 (7.40-12.00) fL Neut % (Auto) 84.1 H (48.0-80.0) % Lymph % (Auto) 7.6 L (16.0-40.0) % [place] % (Auto) 8.3 (0.0-15.0) % Eos % (Auto) 0.0 (0.0-7.0) % Baso % (Auto) 0.0 (0.0-1.5) % Neut # (Auto) 4.6 (1.4-5.7) K/uL Lymph # (Auto) 0.4 L (0.6-2.4) K/uL [place] # (Auto) 0.5 (0.0-0.8) K/uL Eos # (Auto) 0.0 (0.0-0.7) K/uL Baso # (Auto) 0.0 (0.0-0.1) K/uL Nucleated RBC % 0.0 /100WBC Nucleated RBCs # 0 K/uL Sodium 142 (136-148) mmol/L Potassium 4.6 (3.5-5.1) mmol/L Chloride 101 (98-107) mmol/L Carbon Dioxide 37.7 H (21.0-32.0) mmol/L BUN 31 H (7.0-18.0) mg/dL Creatinine 0.8 (0.8-1.3) mg/dL Est Cr Clr Drug Dosing 92.96 mL/min Estimated GFR (MDRD) > 60.0 ml/min Glucose 163 H (74-106) mg/dL Calcium 8.9 (8.5-10.1) mg/dL [facility] Results - Last 24 hrs: Microbiology 04/30/18 18:15 Aerobic Blood Culture - Preliminary Blood - Venous - Lab Draw NO GROWTH AFTER 4 DAYS Anaerobic Blood Culture - Preliminary NO GROWTH AFTER 4 DAYS 04/30/18 17:21 Aerobic Blood Culture - Preliminary Blood - Venous - Iv Start NO GROWTH AFTER 4 DAYS Anaerobic Blood Culture - Preliminary NO GROWTH AFTER 4 DAYS Med Orders - Current: Current Medications Acetaminophen (Tylenol) 650 mg PO Q4H PRN PRN Reason: Pain (Mild 1-3)/fever Last Admin: 05/02/18 20:37 Dose: 650 mg Albuterol/Ipratropium (Duoneb 3.0-0.5 Mg/3 Ml) 3 ml NEB Q4HRRT [facility] Last Admin: 05/05/18 09:29 Dose: 3 ml Alprazolam (Xanax) 1 mg PO BEDTIME [facility] Last Admin: 05/04/18 21:00 Dose: 1 mg Apixaban (Eliquis) 5 mg PO BID [facility] Last Admin: 05/05/18 09:27 Dose: 5 mg Azithromycin (Zithromax) 500 mg PO Q24H [facility] Last Admin: 05/04/18 19:05 Dose: 500 mg Budesonide/Formoterol Fumarate (Symbicort 160-4.5 Mcg) 0 gm INH BID [facility] Last Admin: 05/05/18 09:29 Dose: 1 puff Docusate Sodium (Colace) 100 mg PO DAILY [facility] Last Admin: 05/05/18 09:27 Dose: 100 mg Ceftriaxone Sodium/Dextrose 1 (gm/ Premix) 50 mls @ 100 mls/hr IV Q24H [facility] Last Admin: 05/04/18 19:44 Dose: 100 mls/hr Methylprednisolone Sodium Succinate (Solu-Medrol) 125 mg IVPUSH Q12H [facility] Last Admin: 05/05/18 09:27 Dose: 125 mg Montelukast Sodium (Singulair) 10 mg PO BEDTIME [facility] Last Admin: 05/04/18 21:10 Dose: 10 mg Ondansetron HCl (Zofran) 4 mg IVPUSH Q4H PRN PRN Reason: Nausea/Vomiting Simvastatin (Zocor) 20 mg PO BEDTIME [facility] Last Admin: 05/04/18 21:10 Dose: 20 mg Sodium Chloride (Saline Flush) 10 ml FLUSH ASDIRECTED PRN PRN Reason: Keep Vein Open Last Admin: 04/30/18 19:07 Dose: 10 ml Sodium Chloride (Saline Flush) 2.5 ml FLUSH ASDIRECTED PRN PRN Reason: Keep Vein Open Last Admin: 04/30/18 19:07 Dose: 2.5 ml Trazodone HCl (Trazodone) 100 mg PO BEDTIME [facility] Last Admin: 05/04/18 21:11 Dose: 100 mg Discontinued Medications Albuterol/Ipratropium (Duoneb 3.0-0.5 Mg/3 Ml) 3 ml NEB Q4HRRT PRN PRN Reason: Shortness Of Breath/wheezing Diltiazem HCl (Cardizem Cd) 120 mg PO ONETIME ONE Stop: 05/01/18 17:45 Last Admin: 05/01/18 18:00 Dose: 120 mg Levofloxacin/Dextrose 500 mg/ (Premix) 100 mls @ 100 mls/hr IV ONETIME ONE Stop: 04/30/18 19:42 Last Admin: 04/30/18 19:07 Dose: 100 mls/hr Lorazepam (Ativan) 1 mg IVPUSH BEDTIME PRN PRN Reason: Anxiety Methylprednisolone Sodium Succinate (Solu-Medrol) 125 mg IVPUSH Q6H [facility] Methylprednisolone Sodium Succinate (Solu-Medrol) 125 mg IVPUSH Q6H [facility] Last Admin: 05/01/18 09:30 Dose: 125 mg Methylprednisolone Sodium Succinate (Solu-Medrol) 125 mg IVPUSH Q12H [facility] Last Admin: 05/01/18 12:55 Dose: Not Given Morphine Sulfate (Morphine) 2 mg IVPUSH Q2H PRN PRN Reason: Pain (severe 7-10) Stop: 05/01/18 19:15 Morphine Sulfate (Morphine) 2 mg IVPUSH Q2H PRN PRN Reason: Pain (severe 7-10) Stop: 05/01/18 19:15 Sodium Chloride (Saline Flush) 10 ml FLUSH ASDIRECTED PRN PRN Reason: Keep Vein Open Sodium Chloride (Saline Flush) 2.5 ml FLUSH ASDIRECTED PRN PRN Reason: Keep Vein Open Sodium Chloride (Normal Saline) 10 ml IV ASDIRECTED PRN PRN Reason: IV Use
[2018-05-05 13:19] VITALS: BP 149/79
== END 2018-05-05 14:20 | disposition home or self-care (01) | DRG 190 ==
LOC: MW.ED 16:51 → MW.MS 19:24 → OBSVTOIN 05-03 10:32 → MW.MS 05-03 13:06
PROVIDERS: ADMIT Internal Medicine; ATTEND Internal Medicine
DX: J44.1 Chronic obstructive pulmonary disease with (acute) exacerbation (principal); J18.9 Pneumonia, unspecified organism; J44.0 Chronic obstructive pulmonary disease with (acute) lower respiratory infection; E78.00 Pure hypercholesterolemia, unspecified; K59.09 Other constipation; F41.9 Anxiety disorder, unspecified; I71.4 Abdominal aortic aneurysm, without rupture; E78.5 Hyperlipidemia, unspecified; Z79.899 Other long term (current) drug therapy; Z87.891 Personal history of nicotine dependence; Z88.8 Allergy status to other drugs, medicaments and biological substances; Z99.81 Dependence on supplemental oxygen; R53.1 Weakness; R51 Headache; Z79.01 Long term (current) use of anticoagulants; Z85.46 Personal history of malignant neoplasm of prostate; Z92.3 Personal history of irradiation; Z66 Do not resuscitate; Z86.711 Personal history of pulmonary embolism
CPT/HCPCS: 36415 ×3; 36600; 70450; 71045; 80048 ×2; 80053 ×2; 81001; 82803; 83605; 85025 ×4; 85610; 85730; 86140; 87040 ×2; 87070; 87086; 87205; 87804 ×2; 94640 ×10; 96365; 99285; A9270 ×25; J0696 ×3; J1956; J2930 ×7; 96367; 96375; 96376; 99284; G0378; J7620-GY

== ENCOUNTER 2018-08-05 21:13 | Inpatient (IN) | payer MEDICARE, BC ==
[2018-08-05] MEDS ORDERED: Sodium Chloride 0.9% 10 ML Syringe FLUSH PRN (21:30)
[2018-08-05] MEDS ORDERED: Sodium Chloride 0.9% 2.5 ML Syringe FLUSH PRN (21:30)
[2018-08-05] MEDS ORDERED: Albuterol/Ipratropium 3.0-0.5 MG/3 ML Neb Soln NEB ONE ×2 (21:33→22:53)
[2018-08-05] MEDS ORDERED: methylPREDNISolone Sodium Succinate 125 MG/2 ML SDV IVPUSH ONE (21:33)
--- NOTE | 2018-08-05 21:38 | EDM.PDOC ---
ED HPI GENERAL MEDICAL PROBLEM - General Chief Complaint: Respiratory Problem Stated Complaint: TROUBLE BREATHING Time Seen by Provider: 08/05/18 21:27 - History of Present Illness INITIAL COMMENTS - FREE TEXT/NARRATIVE: HISTORY AND PHYSICAL: History of present illness: The patient is a 72-year-old male with a long-standing history of COPD as well as pneumonia in the past who also had a pulmonary embolus in February and is currently on Eliquis, who is oxygen dependent at 4 L and presents with shortness of breath that has worsened over the last 2 days. He has been using his nebulizer machine more frequently and does not feel improvement. He has had a cough which is not new or different and he has not had a fever chills nausea vomiting chest pain or abdominal pain. The patient has been eating and drinking normally and has had no urinary issues. The patient always has some lower extremity edema which is not new or different and according to and patient he has never had heart problems or congestive heart failure. Patient and both deny any fevers or change in his cough Review of systems: As per history of present illness and below otherwise all systems reviewed and negative. Past medical history: As per history of present illness and as reviewed below otherwise noncontributory. Surgical history: As per history of present illness and as reviewed below otherwise noncontributory. Social history: No reported history of drug or alcohol abuse. Family history: As per history of present illness and as reviewed below otherwise noncontributory. Physical exam: General: Well-developed well-nourished man who is satting 86-87% on his usual 4 L of oxygen but is speaking clearly with only slight breathlessness on activity. Vital signs otherwise are noted by me HEENT: Atraumatic, normocephalic, pupils reactive, negative for conjunctival pallor or scleral icterus, mucous membranes tacky, throat clear, neck supple, nontender, trachea midline. Lungs: Breath sounds in all chakraborty with wheezing rhonchi but no rales or stridor , there is no work of breathing breath sounds equal bilaterally, chest nontender. Heart: S1S2, regular rate and rhythm no overt murmurs but heart sounds are very distant Abdomen: Soft, nondistended, nontender. Full active bowel sounds. Negative for costovertebral tenderness. Pelvis: Stable nontender. Genitourinary: Deferred. Rectal: Deferred. Extremities: Atraumatic, negative for cords or calf pain. Neurovascular unremarkable. Patient has edema bilaterally trace on the right and 1+ on the left which is soft and more located in the ankles on the left Neuro: Awake, alert, oriented. Cranial nerves II through XII unremarkable. Cerebellum unremarkable. Motor and sensory unremarkable throughout. Exam nonfocal. Diagnostics: EKG CBC CMP BNP INR troponin lactic acid chest x-ray Therapeutics: IV O2 monitor DuoNeb and Solu-Medrol Rocephin With the DuoNeb's here patient is holding his sats at 91-92% on 4 L. We will continue to monitor his workup and adjust oxygen and repeat duo neb as needed 2253: TESTING results were discussed with the patient and at bedside as well as Dr. Dutta our hospitalist. He agrees with dosing Rocephin for the patchy area in the left lateral base and continued nebulizer treatments and therapy. He would like the patient to the observation admission and the patient is agreeable. He does feel better. Impression: COPD exacerbation with hypoxia Definitive disposition and diagnosis as appropriate pending reevaluation and review of above. - Related Data Allergies Allergy/AdvReac Type Severity Reaction Status Date / Time prednisone AdvReac Agitation Verified 04/30/18 17:01 Home Meds: Home Meds Albuterol [Proventil HFA] 1 puff INH QID PRN 07/06/13 [History] Ipratropium [Atrovent HFA] 2 puff INH QID PRN 07/06/13 [History] Ipratropium/Albuterol Sulfate [Duoneb 0.5 mg-3 mg/3 ml Soln] 3 ml IH QID PRN [History] Simvastatin [Zocor] 20 mg PO BEDTIME 11/24/14 [History] traZODone 100 mg PO BEDTIME 11/24/14 [History] Docusate Sodium [Pedia-Lax Stool Softener] 50 mg PO DAILY 01/01/16 [History] ALPRAZolam [Xanax] 1 mg PO BEDTIME 04/18/16 [History] Budesonide/Formoterol Fumarate [Symbicort 160-4.5 Mcg Inhaler] 2 puff INH BID [History] Montelukast [Singulair] 10 mg PO BEDTIME 04/18/16 [History] Apixaban [Eliquis] 5 mg PO BID 04/30/18 [History] Sennosides 1 tab PO ASDIRECTED 08/05/18 [History] Past Medical History - Past Health History Medical/Surgical History: Denies Medical/Surgical History HEENT History: Reports: None Other HEENT History: feeling of tightness in throat Cardiovascular History: Reports: High Cholesterol Other Cardiovascular History: AAA Respiratory History: Reports: COPD Other Respiratory History: on home O2 at 3LPM/NC Gastrointestinal History: Reports: Chronic Constipation Genitourinary History: Denies: Dialysis Other Genitourinary History: prostate CA; had radiation last 2007 Musculoskeletal History: Reports: Other (See Below) Other Musculoskeletal History: herniated disc Neurological History: Reports: None Psychiatric History: Reports: Anxiety Other Psychiatric History: on medications Endocrine/Metabolic History: Reports: None Hematologic History: Reports: None Immunologic History: Reports: None Oncologic (Cancer) History: Reports: Prostate Dermatologic History: Reports: None - Infectious Disease History Infectious Disease History: Reports: Influenza - Past Surgical History Head Surgeries/Procedures: Reports: None HEENT Surgical History: Reports: Oral Surgery Neurological Surgical History: Reports: Lumbar Spine Musculoskeletal Surgical History: Reports: Hip Replacement, Other (See Below) Other Musculoskeletal Surgeries/Procedures:: Left hip replacement 2012. Back surgery 1978 Oncologic Surgical History: Reports: Other (See Below) Social & Family History - Family History Family Medical History: Noncontributory Respiratory: Reports: Other (See Below) Other Respiratory Family Hisory: emphysema Oncologic: Reports: Other (See Below) Other Oncologic Family History: not sure what type of CA - Caffeine Use Caffeine Use: Reports: Coffee, Soda Caffeine Use Comment: 5-10cups/day ED ROS GENERAL - Review of Systems Review Of Systems: ROS reveals no pertinent complaints other than HPI. ED EXAM, GENERAL - Physical Exam Exam: See Below (See dictation) Course - Vital Signs Last Recorded V/S: Last Vital Signs Temp 36.1 C 08/05/18 21:20 Pulse 101 H 08/05/18 22:15 Resp 22 H 08/05/18 22:15 BP 110/57 L 08/05/18 22:15 Pulse Ox 91 L 08/05/18 22:15 - Orders/Labs/Meds Orders: Active Orders 24 hr Category Date Time Status Patient Status [ADT] Stat ADT 08/05/18 22:53 Ordered Cardiac Monitoring [RC] . DIRECTED Care 08/05/18 21:31 Active EKG Documentation Completion [RC] STAT Care 08/05/18 21:31 Active Oxygen Therapy, ED [RC] ASDIRECTED Care 08/05/18 21:31 Active Pulse Oximetry [RC] ASDIRECTED Care 08/05/18 21:31 Active RT Aerosol Therapy [RC] ASDIRECTED Care 08/05/18 21:33 Active RT Aerosol Therapy [RC] ASDIRECTED Care 08/05/18 22:53 Ordered Albuterol/Ipratropium [DuoNeb 3.0-0.5 MG/3 ML] Med 08/05/18 22:53 Once 3 ml NEB ONETIME ONE Sodium Chloride 0.9% [Saline Flush] Med 08/05/18 21:30 Active 10 ml FLUSH ASDIRECTED PRN Sodium Chloride 0.9% [Saline Flush] Med 08/05/18 21:30 Active 2.5 ml FLUSH ASDIRECTED PRN cefTRIAXone [Rocephin in Dextrose,Iso-Osm 2 GM/50 ML] 2 Med 08/05/18 22:51 Ordered gm Premix Bag 1 bag IV ONETIME Saline Lock Insert [OM.PC] Stat Oth 08/05/18 21:31 Ordered Medication Orders Ceftriaxone Sodium/Dextrose 2 (gm/ Premix) 50 mls @ 100 mls/hr IV ONETIME ONE Stop: 08/05/18 23:20 Sodium Chloride (Saline Flush) 10 ml FLUSH ASDIRECTED PRN PRN Reason: Keep Vein Open Sodium Chloride (Saline Flush) 2.5 ml FLUSH ASDIRECTED PRN PRN Reason: Keep Vein Open Labs: Laboratory Tests 08/05/18 08/05/18 08/05/18 Range/Units 21:41 21:41 21:41 WBC 9.38 (4.0-11.0) K/uL RBC 3.97 L (4.50-5.90) M/uL Hgb 12.0 L (13.0-17.0) g/dL Hct 39.1 (38.0-50.0) % MCV 98.5 H (80.0-98.0) fL MCH 30.2 (27.0-32.0) pg MCHC 30.7 L (31.0-37.0) g/dL RDW Std Deviation 49.6 (28.0-62.0) fl RDW Coeff of Giacomo 14 (11.0-15.0) % Plt Count 231 (150-400) K/uL MPV 10.30 (7.40-12.00) fL Neut % (Auto) 78.3 (48.0-80.0) % Lymph % (Auto) 12.2 L (16.0-40.0) % Mcminn % (Auto) 6.6 (0.0-15.0) % Eos % (Auto) 2.7 (0.0-7.0) % Baso % (Auto) 0.2 (0.0-1.5) % Neut # (Auto) 7.4 H (1.4-5.7) K/uL Lymph # (Auto) 1.1 (0.6-2.4) K/uL Mcminn # (Auto) 0.6 (0.0-0.8) K/uL Eos # (Auto) 0.3 (0.0-0.7) K/uL Baso # (Auto) 0.0 (0.0-0.1) K/uL Nucleated RBC % 0.0 /100WBC Nucleated RBCs # 0 K/uL INR 1.01 Lactate 1.2 (0.20-2.00) mmol/L Sodium (136-148) mmol/L Potassium (3.5-5.1) mmol/L Chloride (98-107) mmol/L Carbon Dioxide (21.0-32.0) mmol/L BUN (7.0-18.0) mg/dL Creatinine (0.8-1.3) mg/dL Est Cr Clr Drug Dosing Estimated GFR (MDRD) ml/min Glucose (74-106) mg/dL Calcium (8.5-10.1) mg/dL Total Bilirubin (0.2-1.0) mg/dL AST (15-37) IU/L ALT (14-63) IU/L Alkaline Phosphatase (46-116) U/L Troponin I (0.000-0.056) ng/mL B-Natriuretic Peptide (<100) PG/ML Total Protein (6.4-8.2) g/dL Albumin (3.4-5.0) g/dL Globulin (2.6-4.0) g/dL Albumin/Globulin Ratio (0.9-1.6) 08/05/18 08/05/18 Range/Units 21:41 21:41 WBC (4.0-11.0) K/uL RBC (4.50-5.90) M/uL Hgb (13.0-17.0) g/dL Hct (38.0-50.0) % MCV (80.0-98.0) fL MCH (27.0-32.0) pg MCHC (31.0-37.0) g/dL RDW Std Deviation (28.0-62.0) fl RDW Coeff of Giacomo (11.0-15.0) % Plt Count (150-400) K/uL MPV (7.40-12.00) fL Neut % (Auto) (48.0-80.0) % Lymph % (Auto) (16.0-40.0) % Mcminn % (Auto) (0.0-15.0) % Eos % (Auto) (0.0-7.0) % Baso % (Auto) (0.0-1.5) % Neut # (Auto) (1.4-5.7) K/uL Lymph # (Auto) (0.6-2.4) K/uL Mcminn # (Auto) (0.0-0.8) K/uL Eos # (Auto) (0.0-0.7) K/uL Baso # (Auto) (0.0-0.1) K/uL Nucleated RBC % /100WBC Nucleated RBCs # K/uL INR Lactate (0.20-2.00) mmol/L Sodium 136 (136-148) mmol/L Potassium 4.3 (3.5-5.1) mmol/L Chloride 99 (98-107) mmol/L Carbon Dioxide 35.7 H (21.0-32.0) mmol/L BUN 13 (7.0-18.0) mg/dL Creatinine 0.6 L (0.8-1.3) mg/dL Est Cr Clr Drug Dosing TNP Estimated GFR (MDRD) > 60.0 ml/min Glucose 110 H (74-106) mg/dL Calcium 9.1 (8.5-10.1) mg/dL Total Bilirubin 0.5 (0.2-1.0) mg/dL AST 27 (15-37) IU/L ALT 27 (14-63) IU/L Alkaline Phosphatase 74 (46-116) U/L Troponin I < 0.050 (0.000-0.056) ng/mL B-Natriuretic Peptide 17 (<100) PG/ML Total Protein 7.2 (6.4-8.2) g/dL Albumin 3.3 L (3.4-5.0) g/dL Globulin 3.9 (2.6-4.0) g/dL Albumin/Globulin Ratio 0.9 (0.9-1.6) Meds: Medications Generic Name Dose Route Start Last Admin Trade Name Freq PRN Reason Stop Dose Admin Ceftriaxone Sodium/Dextrose 2 50 mls @ 100 mls/hr 08/05/18 22:51 gm/ Premix IV 08/05/18 23:20 ONETIME ONE Sodium Chloride 10 ml 08/05/18 21:30 Saline Flush FLUSH ASDIRECTED PRN Keep Vein Open Sodium Chloride 2.5 ml 08/05/18 21:30 Saline Flush FLUSH ASDIRECTED PRN Keep Vein Open Discontinued Medications Generic Name Dose Route Start Last Admin Trade Name Freq PRN Reason Stop Dose Admin Albuterol/Ipratropium 3 ml 08/05/18 21:33 08/05/18 21:54 Duoneb 3.0-0.5 Mg/3 Ml NEB 08/05/18 21:34 3 ml ONETIME ONE Administration Methylprednisolone Sodium Succinate 125 mg 08/05/18 21:33 08/05/18 22:13 Solu-Medrol IVPUSH 08/05/18 21:34 125 mg ONETIME ONE Administration Departure - Departure Time of Disposition: 22:54 Disposition: Refer to Observation Condition: Fair Clinical Impression: COPD with exacerbation - Discharge Information Referrals: Guille Limon MD [Primary Care Provider] - Forms: ED Department Discharge - My Orders Last 24 Hours: My Active Orders 08/05/18 21:30 Sodium Chloride 0.9% [Saline Flush] 10 ml FLUSH ASDIRECTED PRN Sodium Chloride 0.9% [Saline Flush] 2.5 ml FLUSH ASDIRECTED PRN 08/05/18 21:31 Cardiac Monitoring [RC] . DIRECTED EKG Documentation Completion [RC] STAT Oxygen Therapy, ED [RC] ASDIRECTED Pulse Oximetry [RC] ASDIRECTED Saline Lock Insert [OM.PC] Stat 08/05/18 21:33 RT Aerosol Therapy [RC] ASDIRECTED 08/05/18 22:51 cefTRIAXone [Rocephin in Dextrose,Iso-Osm 2 GM/50 ML] 2 gm Premix Bag 1 bag IV ONETIME 08/05/18 22:53 Patient Status [ADT] Stat RT Aerosol Therapy [RC] ASDIRECTED Albuterol/Ipratropium [DuoNeb 3.0-0.5 MG/3 ML] 3 ml NEB ONETIME ONE - Assessment/Plan Last 24 Hours: My Active Orders 08/05/18 21:30 Sodium Chloride 0.9% [Saline Flush] 10 ml FLUSH ASDIRECTED PRN Sodium Chloride 0.9% [Saline Flush] 2.5 ml FLUSH ASDIRECTED PRN 08/05/18 21:31 Cardiac Monitoring [RC] . DIRECTED EKG Documentation Completion [RC] STAT Oxygen Therapy, ED [RC] ASDIRECTED Pulse Oximetry [RC] ASDIRECTED Saline Lock Insert [OM.PC] Stat 08/05/18 21:33 RT Aerosol Therapy [RC] ASDIRECTED 08/05/18 22:51 cefTRIAXone [Rocephin in Dextrose,Iso-Osm 2 GM/50 ML] 2 gm Premix Bag 1 bag IV ONETIME 08/05/18 22:53 Patient Status [ADT] Stat RT Aerosol Therapy [RC] ASDIRECTED Albuterol/Ipratropium [DuoNeb 3.0-0.5 MG/3 ML] 3 ml NEB ONETIME ONE
[2018-08-05 22:32] LABS: CHLORIDE,CL 99 mmol/L (98-107); SODIUM,NA 136 mmol/L (136-148)
--- NOTE | 2018-08-05 22:42 | CR ---
HISTORY: Shortness of breath COMPARISON: 04/30/2018 FINDINGS: A portable erect AP view of the chest was obtained at 22 24 hours. The previously seen mild left basilar atelectasis has improved. There is now minimal patchy density in the left lateral lung base. The previously seen fluid collection in the bulla located adjacent to the aortic arch has resolved. The rest of the chest remains clear. The heart remains normal in size. The mediastinum is normal in appearance. The osseous structures are normal in appearance for the patient`s age. IMPRESSION: Improvement in mild left basilar atelectasis, now with minimal residual patchy density in the lateral lung base. Resolution of previously seen fluid collection in the bulla located adjacent to the aortic arch. Dictated by Nomi Jones MD @ Aug 05 2018 10:37PM Signed by Dr. Nomi Jones @ Aug 05 2018 10:39PM
[2018-08-05] MEDS ORDERED: cefTRIAXone 2 GM in Premix Bag 1 BAG IV ONE (22:51)
[2018-08-06] MEDS ORDERED: Albuterol/Ipratropium 3.0-0.5 MG/3 ML Neb Soln NEB PRN ×2 (00:54→14:08)
[2018-08-06] MEDS ORDERED: Acetaminophen 325 MG Tab PO PRN (00:54)
[2018-08-06] MEDS ORDERED: oxyCODONE 5 MG Tab PO PRN (00:54)
[2018-08-06] MEDS ORDERED: Temazepam 15 MG Cap PO PRN (00:54)
[2018-08-06] MEDS ORDERED: Simvastatin 20 MG Tab PO SCH ×2 (01:45→21:00)
[2018-08-06] MEDS ORDERED: Montelukast 10 MG Tab PO SCH ×2 (01:45→21:00)
[2018-08-06] MEDS: traZODone 50 MG Tab PO SCH ×3 (02:58→22:00)
[2018-08-06] MEDS: Apixaban 5 MG Tab PO SCH ×4 (02:58→21:16)
[2018-08-06] MEDS: Budesonide/Formoterol 160-4.5 MCG/Puff 6 GM Inhaler INH SCH ×5 (02:58→22:00)
[2018-08-06] MEDS: methylPREDNISolone Sodium Succinate 125 MG/2 ML SDV IV SCH ×3 (06:17→21:19)
[2018-08-06] MEDS ORDERED: Ipratropium 12.9 GM Inhaler INH PRN (08:03)
[2018-08-06] MEDS ORDERED: Sennosides 8.6 MG Tab PO SCH (08:15)
[2018-08-06] MEDS: Docusate Sodium 100 MG Cap PO SCH (09:06)
--- NOTE | 2018-08-06 12:53 | PCM.HP ---
<Tiffanie Albert Smith - Last Filed: 08/06/18 13:40> H&P History of Present Illness - General Date of Service: 08/06/18 Admit Problem/Dx: Admission Diagnosis/Problem Admission Diagnosis/Problem COPD, Moderate chronic obstructive pulmonary disease - History of Present Illness Initial Comments - Free Text/Narative: 72 y/o male with history of COPD, PE and dyslipidemia who presented to the ER from home with worsening shortness of breath and productive cough. He states he is on 4 L O2 NC at home and that recently he has been using his Duonebs more often and feeling more short of breath. No fever, chest pain, abdominal pain, dysuria, diarrhea, blood in stool. Denies history of diabetes. Former smoker who lives with his . He can usually walk 20 feet before feeling short of breath. Uses walker intermittently. In the ER, he was found to be hypoxic at 85 % O2 NC. - Related Data Allergies/Adverse Reactions: Allergies Allergy/AdvReac Type Severity Reaction Status Date / Time prednisone AdvReac Agitation Verified 08/06/18 00:04 Home Medications: Home Meds Albuterol [Proventil HFA] 1 puff INH QID PRN 07/06/13 [History] Ipratropium [Atrovent HFA] 2 puff INH QID PRN 07/06/13 [History] Ipratropium/Albuterol Sulfate [Duoneb 0.5 mg-3 mg/3 ml Soln] 3 ml IH QID PRN [History] Simvastatin [Zocor] 20 mg PO BEDTIME 11/24/14 [History] traZODone 100 mg PO BEDTIME 11/24/14 [History] Docusate Sodium [Pedia-Lax Stool Softener] 50 mg PO DAILY 01/01/16 [History] ALPRAZolam [Xanax] 1 mg PO BEDTIME 04/18/16 [History] Budesonide/Formoterol Fumarate [Symbicort 160-4.5 Mcg Inhaler] 2 puff INH BID [History] Montelukast [Singulair] 10 mg PO BEDTIME 04/18/16 [History] Apixaban [Eliquis] 5 mg PO BID 04/30/18 [History] Sennosides 1 tab PO ASDIRECTED 08/05/18 [History] Past Medical History - Past Health History Medical/Surgical History: Denies Medical/Surgical History HEENT History: Reports: None Other HEENT History: feeling of tightness in throat Cardiovascular History: Reports: High Cholesterol Other Cardiovascular History: AAA Respiratory History: Reports: COPD Other Respiratory History: on home O2 at 3LPM/NC Gastrointestinal History: Reports: Chronic Constipation Genitourinary History: Denies: Dialysis Other Genitourinary History: prostate CA; had radiation last 2007 Musculoskeletal History: Reports: Other (See Below) Other Musculoskeletal History: herniated disc Neurological History: Reports: None Psychiatric History: Reports: Anxiety Other Psychiatric History: on medications Endocrine/Metabolic History: Reports: None Hematologic History: Reports: None Immunologic History: Reports: None Oncologic (Cancer) History: Reports: Prostate Dermatologic History: Reports: None - Infectious Disease History Infectious Disease History: Reports: Influenza - Past Surgical History Head Surgeries/Procedures: Reports: None HEENT Surgical History: Reports: Oral Surgery Neurological Surgical History: Reports: Lumbar Spine Musculoskeletal Surgical History: Reports: Hip Replacement, Other (See Below) Other Musculoskeletal Surgeries/Procedures:: Left hip replacement 2012. Back surgery 1978 Oncologic Surgical History: Reports: Other (See Below) Social & Family History - Family History Family Medical History: Noncontributory Respiratory: Reports: Other (See Below) Other Respiratory Family Hisory: emphysema Oncologic: Reports: Other (See Below) Other Oncologic Family History: not sure what type of CA - Tobacco Use Smoking Status *Q: Former Smoker Used Tobacco, but Quit: Yes Month/Year Tobacco Last Used: unknown - Caffeine Use Caffeine Use: Reports: Coffee Caffeine Use Comment: 5-10cups/day - Recreational Drug Use Recreational Drug Use: No H&P Review of Systems - Review of Systems: Review Of Systems: ROS reveals no pertinent complaints other than HPI. Exam - Exam Exam: See Below - Vital Signs Vital Signs: Last Vital Signs Temp 36.7 C 08/06/18 12:00 Pulse 98 08/06/18 12:00 Resp 20 08/06/18 12:00 BP 112/62 08/06/18 12:00 Pulse Ox 91 L 08/06/18 12:00 Weight: 90.809 kg - Exam General: Alert, Oriented, Cooperative HEENT: Conjunctiva Clear, Mucosa Moist & [place] Lungs: Other (Faint lung sounds bilatereally with some expiratory wheezing bilaterally and increased inspiratory and expiratory phases.) Cardiovascular: Regular Rate, Regular Rhythm GI/Abdominal Exam: Normal Bowel Sounds, Soft, Non-Tender, No Distention Extremities: Normal Inspection, No Pedal Edema Skin: Warm, Dry - Patient Data Lab Results Last 24 hrs: Laboratory Results - last 24 hr 08/05/18 08/05/18 08/05/18 Range/Units 21:41 21:41 21:41 WBC 9.38 (4.0-11.0) K/uL RBC 3.97 L (4.50-5.90) M/uL Hgb 12.0 L (13.0-17.0) g/dL Hct 39.1 (38.0-50.0) % MCV 98.5 H (80.0-98.0) fL MCH 30.2 (27.0-32.0) pg MCHC 30.7 L (31.0-37.0) g/dL RDW Std Deviation 49.6 (28.0-62.0) fl RDW Coeff of Giacomo 14 (11.0-15.0) % Plt Count 231 (150-400) K/uL MPV 10.30 (7.40-12.00) fL Neut % (Auto) 78.3 (48.0-80.0) % Lymph % (Auto) 12.2 L (16.0-40.0) % [place] % (Auto) 6.6 (0.0-15.0) % Eos % (Auto) 2.7 (0.0-7.0) % Baso % (Auto) 0.2 (0.0-1.5) % Neut # (Auto) 7.4 H (1.4-5.7) K/uL Lymph # (Auto) 1.1 (0.6-2.4) K/uL [place] # (Auto) 0.6 (0.0-0.8) K/uL Eos # (Auto) 0.3 (0.0-0.7) K/uL Baso # (Auto) 0.0 (0.0-0.1) K/uL Nucleated RBC % 0.0 /100WBC Nucleated RBCs # 0 K/uL INR 1.01 Lactate 1.2 (0.20-2.00) mmol/L Sodium (136-148) mmol/L Potassium (3.5-5.1) mmol/L Chloride (98-107) mmol/L Carbon Dioxide (21.0-32.0) mmol/L BUN (7.0-18.0) mg/dL Creatinine (0.8-1.3) mg/dL Est Cr Clr Drug Dosing Estimated GFR (MDRD) ml/min Glucose (74-106) mg/dL Calcium (8.5-10.1) mg/dL Total Bilirubin (0.2-1.0) mg/dL AST (15-37) IU/L ALT (14-63) IU/L Alkaline Phosphatase (46-116) U/L Troponin I (0.000-0.056) ng/mL B-Natriuretic Peptide (<100) PG/ML Total Protein (6.4-8.2) g/dL Albumin (3.4-5.0) g/dL Globulin (2.6-4.0) g/dL Albumin/Globulin Ratio (0.9-1.6) 08/05/18 08/05/18 Range/Units 21:41 21:41 WBC (4.0-11.0) K/uL RBC (4.50-5.90) M/uL Hgb (13.0-17.0) g/dL Hct (38.0-50.0) % MCV (80.0-98.0) fL MCH (27.0-32.0) pg MCHC (31.0-37.0) g/dL RDW Std Deviation (28.0-62.0) fl RDW Coeff of Giacomo (11.0-15.0) % Plt Count (150-400) K/uL MPV (7.40-12.00) fL Neut % (Auto) (48.0-80.0) % Lymph % (Auto) (16.0-40.0) % [place] % (Auto) (0.0-15.0) % Eos % (Auto) (0.0-7.0) % Baso % (Auto) (0.0-1.5) % Neut # (Auto) (1.4-5.7) K/uL Lymph # (Auto) (0.6-2.4) K/uL [place] # (Auto) (0.0-0.8) K/uL Eos # (Auto) (0.0-0.7) K/uL Baso # (Auto) (0.0-0.1) K/uL Nucleated RBC % /100WBC Nucleated RBCs # K/uL INR Lactate (0.20-2.00) mmol/L Sodium 136 (136-148) mmol/L Potassium 4.3 (3.5-5.1) mmol/L Chloride 99 (98-107) mmol/L Carbon Dioxide 35.7 H (21.0-32.0) mmol/L BUN 13 (7.0-18.0) mg/dL Creatinine 0.6 L (0.8-1.3) mg/dL Est Cr Clr Drug Dosing TNP Estimated GFR (MDRD) > 60.0 ml/min Glucose 110 H (74-106) mg/dL Calcium 9.1 (8.5-10.1) mg/dL Total Bilirubin 0.5 (0.2-1.0) mg/dL AST 27 (15-37) IU/L ALT 27 (14-63) IU/L Alkaline Phosphatase 74 (46-116) U/L Troponin I < 0.050 (0.000-0.056) ng/mL B-Natriuretic Peptide 17 (<100) PG/ML Total Protein 7.2 (6.4-8.2) g/dL Albumin 3.3 L (3.4-5.0) g/dL Globulin 3.9 (2.6-4.0) g/dL Albumin/Globulin Ratio 0.9 (0.9-1.6) Result Diagrams: 08/05/18 21:41 08/05/18 21:41 Problem List Initiated/Reviewed/Updated: Yes Orders Last 24hrs: Active Orders 24 hr Category Date Time Status Patient Status [ADT] Stat ADT 08/05/18 22:53 Active Cardiac Monitoring [RC] . DIRECTED Care 08/05/18 21:31 Active EKG Documentation Completion [RC] STAT Care 08/05/18 21:31 Active Oxygen Therapy [RC] ASDIRECTED Care 08/06/18 00:54 Active Oxygen Therapy, ED [RC] ASDIRECTED Care 08/05/18 21:31 Active Pulse Oximetry [RC] ASDIRECTED Care 08/05/18 21:31 Active RT Aerosol Therapy [RC] ASDIRECTED Care 08/05/18 21:33 Active RT Aerosol Therapy [RC] ASDIRECTED Care 08/05/18 22:53 Active RT Aerosol Therapy [RC] ASDIRECTED Care 08/06/18 00:58 Active RT Post Treatment Assessment [RC] Click to Edit Care 08/06/18 01:00 Active RT Pre-Treatment Assessment [RC] Click to Edit Care 08/06/18 01:00 Active Regular Diet [DIET] Diet 08/06/18 Breakfast Active ALPRAZolam [Xanax] Med 08/06/18 21:00 Active 1 mg PO BEDTIME Acetaminophen [Tylenol] Med 08/06/18 00:54 Active 650 mg PO Q4H PRN Albuterol/Ipratropium [DuoNeb 3.0-0.5 MG/3 ML] Med 08/06/18 00:54 Active 3 ml NEB Q4HRRT PRN Apixaban [Eliquis] Med 08/06/18 09:00 Active 5 mg PO BID Budesonide/Formoterol [Symbicort 160-4.5 MCG] Med 08/06/18 01:00 Active 0 gm INH BID Docusate Sodium [Colace] Med 08/06/18 09:00 Active 100 mg PO DAILY Ipratropium [Atrovent HFA] Med 08/06/18 08:03 Active 0 gm INH QID PRN Montelukast [Singulair] Med 08/06/18 21:00 Active 10 mg PO BEDTIME Patient's Own Medication [Ptom] Med 08/06/18 09:00 Active 0 each INH BID Sennosides [Senna] Med 08/06/18 08:15 Active 8.6 mg PO ASDIRECTED Simvastatin [Zocor] Med 08/06/18 21:00 Active 20 mg PO BEDTIME Sodium Chloride 0.9% [Saline Flush] Med 08/05/18 21:30 Active 10 ml FLUSH ASDIRECTED PRN Sodium Chloride 0.9% [Saline Flush] Med 08/05/18 21:30 Active 2.5 ml FLUSH ASDIRECTED PRN Temazepam [Restoril] Med 08/06/18 00:54 Active 15 mg PO BEDTIME PRN methylPREDNISolone Sod Succ [Solu-MEDROL] Med 08/06/18 06:00 Active 125 mg IV Q8H oxyCODONE Med 08/06/18 00:54 Active 5 mg PO Q4H PRN traZODone Med 08/06/18 01:45 Active 100 mg PO BEDTIME traZODone Med 08/06/18 21:00 Active 100 mg PO BEDTIME Saline Lock Insert [OM.PC] Stat Oth 08/05/18 21:31 Ordered Resuscitation Status Routine Resus Stat 08/06/18 08:03 Ordered Medication Orders Acetaminophen (Tylenol) 650 mg PO Q4H PRN PRN Reason: Pain (mild 1-3) Albuterol/Ipratropium (Duoneb 3.0-0.5 Mg/3 Ml) 3 ml NEB Q4HRRT PRN PRN Reason: Shortness of Breath Last Admin: 08/06/18 08:23 Dose: 3 ml Alprazolam (Xanax) 1 mg PO BEDTIME CARLOS A Apixaban (Eliquis) 5 mg PO BID [facility] Last Admin: 08/06/18 09:01 Dose: 5 mg Budesonide/Formoterol Fumarate (Symbicort 160-4.5 Mcg) 0 gm INH BID [facility] Last Admin: 08/06/18 09:02 Dose: Admin: 08/06/18 02:58 Dose: Not Given Docusate Sodium (Colace) 100 mg PO DAILY [facility] Last Admin: 08/06/18 09:06 Dose: 100 mg Ipratropium [place] (Atrovent Hfa) 0 gm INH QID PRN PRN Reason: Shortness of Breath Methylprednisolone Sodium Succinate (Solu-Medrol) 125 mg IV Q8H [facility] Last Admin: 08/06/18 06:17 Dose: 125 mg Montelukast Sodium (Singulair) 10 mg PO BEDTIME CARLOS A Oxycodone HCl (Oxycodone) 5 mg PO Q4H PRN PRN Reason: Pain (moderate 4-6) Budesonide/Formoterol 160-4.5 Mcg/Puff 6 Gm Inhaler 0 each INH BID [facility] Last Admin: 08/06/18 09:03 Dose: Senna (Senna) 8.6 mg PO ASDIRECTED CARLOS A Simvastatin (Zocor) 20 mg PO BEDTIME CARLOS A Sodium Chloride (Saline Flush) 10 ml FLUSH ASDIRECTED PRN PRN Reason: Keep Vein Open Sodium Chloride (Saline Flush) 2.5 ml FLUSH ASDIRECTED PRN PRN Reason: Keep Vein Open Temazepam (Restoril) 15 mg PO BEDTIME PRN PRN Reason: Sleep Trazodone HCl (Trazodone) 100 mg PO BEDTIME [facility] Last Admin: 08/06/18 02:58 Dose: Not Given Trazodone HCl (Trazodone) 100 mg PO BEDTIME [facility] Assessment/Plan Comment:: A: 1. Acute COPD exacerbation 2. Macrocytic anemia 3. PMH PE, dyslipidemia. P: 1. Acute COPD exacerbation- Duonebs Q4H PRN, Methylprednisolone, Levaquin. Will continue his home inhalers. Goal O2 sat 88-94%. Sputum culture. 2. Macrocytic anemia. Will order iron studies and stool occult. Continue to monitor. 3. Hx of PE- continue Eliquis Dispo: 1-2 days <Pawel Dutta - Last Filed: 08/06/18 13:59> H&P History of Present Illness - General Admit Problem/Dx: Admission Diagnosis/Problem Admission Diagnosis/Problem COPD, Moderate chronic obstructive pulmonary disease I have seen and examined to patient independently of biomedical engineering professor, Albert Moreno MD. I have discussed the case for care of this patient with him. I have reviewed and approve of the plan of care as outlined by biomedical engineering professor. Please see orders. Exam - Vital Signs Vital Signs: Last Vital Signs Temp 36.7 C 08/06/18 12:00 Pulse 98 08/06/18 12:00 Resp 20 08/06/18 12:00 BP 112/62 08/06/18 12:00 Pulse Ox 91 L 08/06/18 12:00 - Patient Data Lab Results Last 24 hrs: Laboratory Results - last 24 hr 08/05/18 08/05/18 08/05/18 Range/Units 21:41 21:41 21:41 WBC 9.38 (4.0-11.0) K/uL RBC 3.97 L (4.50-5.90) M/uL Hgb 12.0 L (13.0-17.0) g/dL Hct 39.1 (38.0-50.0) % MCV 98.5 H (80.0-98.0) fL MCH 30.2 (27.0-32.0) pg MCHC 30.7 L (31.0-37.0) g/dL RDW Std Deviation 49.6 (28.0-62.0) fl RDW Coeff of Giacomo 14 (11.0-15.0) % Plt Count 231 (150-400) K/uL MPV 10.30 (7.40-12.00) fL Neut % (Auto) 78.3 (48.0-80.0) % Lymph % (Auto) 12.2 L (16.0-40.0) % [place] % (Auto) 6.6 (0.0-15.0) % Eos % (Auto) 2.7 (0.0-7.0) % Baso % (Auto) 0.2 (0.0-1.5) % Neut # (Auto) 7.4 H (1.4-5.7) K/uL Lymph # (Auto) 1.1 (0.6-2.4) K/uL [place] # (Auto) 0.6 (0.0-0.8) K/uL Eos # (Auto) 0.3 (0.0-0.7) K/uL Baso # (Auto) 0.0 (0.0-0.1) K/uL Nucleated RBC % 0.0 /100WBC Nucleated RBCs # 0 K/uL INR 1.01 Lactate 1.2 (0.20-2.00) mmol/L Sodium (136-148) mmol/L Potassium (3.5-5.1) mmol/L Chloride (98-107) mmol/L Carbon Dioxide (21.0-32.0) mmol/L BUN (7.0-18.0) mg/dL Creatinine (0.8-1.3) mg/dL Est Cr Clr Drug Dosing Estimated GFR (MDRD) ml/min Glucose (74-106) mg/dL Calcium (8.5-10.1) mg/dL Total Bilirubin (0.2-1.0) mg/dL AST (15-37) IU/L ALT (14-63) IU/L Alkaline Phosphatase (46-116) U/L Troponin I (0.000-0.056) ng/mL B-Natriuretic Peptide (<100) PG/ML Total Protein (6.4-8.2) g/dL Albumin (3.4-5.0) g/dL Globulin (2.6-4.0) g/dL Albumin/Globulin Ratio (0.9-1.6) 08/05/18 08/05/18 Range/Units 21:41 21:41 WBC (4.0-11.0) K/uL RBC (4.50-5.90) M/uL Hgb (13.0-17.0) g/dL Hct (38.0-50.0) % MCV (80.0-98.0) fL MCH (27.0-32.0) pg MCHC (31.0-37.0) g/dL RDW Std Deviation (28.0-62.0) fl RDW Coeff of Giacomo (11.0-15.0) % Plt Count (150-400) K/uL MPV (7.40-12.00) fL Neut % (Auto) (48.0-80.0) % Lymph % (Auto) (16.0-40.0) % [place] % (Auto) (0.0-15.0) % Eos % (Auto) (0.0-7.0) % Baso % (Auto) (0.0-1.5) % Neut # (Auto) (1.4-5.7) K/uL Lymph # (Auto) (0.6-2.4) K/uL [place] # (Auto) (0.0-0.8) K/uL Eos # (Auto) (0.0-0.7) K/uL Baso # (Auto) (0.0-0.1) K/uL Nucleated RBC % /100WBC Nucleated RBCs # K/uL INR Lactate (0.20-2.00) mmol/L Sodium 136 (136-148) mmol/L Potassium 4.3 (3.5-5.1) mmol/L Chloride 99 (98-107) mmol/L Carbon Dioxide 35.7 H (21.0-32.0) mmol/L BUN 13 (7.0-18.0) mg/dL Creatinine 0.6 L (0.8-1.3) mg/dL Est Cr Clr Drug Dosing TNP Estimated GFR (MDRD) > 60.0 ml/min Glucose 110 H (74-106) mg/dL Calcium 9.1 (8.5-10.1) mg/dL Total Bilirubin 0.5 (0.2-1.0) mg/dL AST 27 (15-37) IU/L ALT 27 (14-63) IU/L Alkaline Phosphatase 74 (46-116) U/L Troponin I < 0.050 (0.000-0.056) ng/mL B-Natriuretic Peptide 17 (<100) PG/ML Total Protein 7.2 (6.4-8.2) g/dL Albumin 3.3 L (3.4-5.0) g/dL Globulin 3.9 (2.6-4.0) g/dL Albumin/Globulin Ratio 0.9 (0.9-1.6) Result Diagrams: 08/05/18 21:41 08/05/18 21:41 Orders Last 24hrs: Active Orders 24 hr Category Date Time Status Patient Status [ADT] Stat ADT 08/05/18 22:53 Active Cardiac Monitoring [RC] . DIRECTED Care 08/05/18 21:31 Active EKG Documentation Completion [RC] STAT Care 08/05/18 21:31 Active Oxygen Therapy [RC] ASDIRECTED Care 08/06/18 00:54 Active Oxygen Therapy, ED [RC] ASDIRECTED Care 08/05/18 21:31 Active Pulse Oximetry [RC] ASDIRECTED Care 08/05/18 21:31 Active RT Aerosol Therapy [RC] ASDIRECTED Care 08/05/18 21:33 Active RT Aerosol Therapy [RC] ASDIRECTED Care 08/05/18 22:53 Active RT Aerosol Therapy [RC] ASDIRECTED Care 08/06/18 00:58 Active RT Post Treatment Assessment [RC] Click to Edit Care 08/06/18 01:00 Active RT Pre-Treatment Assessment [RC] Click to Edit Care 08/06/18 01:00 Active Regular Diet [DIET] Diet 08/06/18 Breakfast Active CULTURE SPUTUM + SMEAR [RM] Routine Lab 08/06/18 13:05 Ordered FERRITIN [CHEM] Routine Lab 08/06/18 13:50 Ordered FOLIC ACID [CHEM] Routine Lab 08/06/18 13:50 Ordered IRON/TIBC [CHEM] Routine Lab 08/06/18 13:50 Ordered OCCULT BLOOD DIAGNOSTIC [OP] Routine Lab 08/06/18 13:50 Ordered VITAMIN B12 [CHEM] Routine Lab 08/06/18 13:50 Ordered ALPRAZolam [Xanax] Med 08/06/18 21:00 Active 1 mg PO BEDTIME Acetaminophen [Tylenol] Med 08/06/18 00:54 Active 650 mg PO Q4H PRN Albuterol/Ipratropium [DuoNeb 3.0-0.5 MG/3 ML] Med 08/06/18 00:54 Active 3 ml NEB Q4HRRT PRN Apixaban [Eliquis] Med 08/06/18 09:00 Active 5 mg PO BID Budesonide/Formoterol [Symbicort 160-4.5 MCG] Med 08/06/18 01:00 Active 0 gm INH BID Docusate Sodium [Colace] Med 08/06/18 09:00 Active 100 mg PO DAILY Ipratropium [Atrovent HFA] Med 08/06/18 08:03 Active 0 gm INH QID PRN Levofloxacin/Dextrose 5%-Water [Levaquin in D5W 750 MG/ Med 08/06/18 13:15 Active 150 ML] 750 mg Premix Bag 1 bag IV Q24H Montelukast [Singulair] Med 08/06/18 21:00 Active 10 mg PO BEDTIME Patient's Own Medication [Ptom] Med 08/06/18 09:00 Active 0 each INH BID Sennosides [Senna] Med 08/06/18 08:15 Active 8.6 mg PO ASDIRECTED Simvastatin [Zocor] Med 08/06/18 21:00 Active 20 mg PO BEDTIME Sodium Chloride 0.9% [Saline Flush] Med 08/05/18 21:30 Active 10 ml FLUSH ASDIRECTED PRN Sodium Chloride 0.9% [Saline Flush] Med 08/05/18 21:30 Active 2.5 ml FLUSH ASDIRECTED PRN Temazepam [Restoril] Med 08/06/18 00:54 Active 15 mg PO BEDTIME PRN methylPREDNISolone Sod Succ [Solu-MEDROL] Med 08/06/18 06:00 Active 125 mg IV Q8H oxyCODONE Med 08/06/18 00:54 Active 5 mg PO Q4H PRN traZODone Med 08/06/18 01:45 Active 100 mg PO BEDTIME traZODone Med 08/06/18 21:00 Active 100 mg PO BEDTIME Saline Lock Insert [OM.PC] Stat Oth 08/05/18 21:31 Ordered Resuscitation Status Routine Resus Stat 08/06/18 08:03 Ordered Medication Orders Acetaminophen (Tylenol) 650 mg PO Q4H PRN PRN Reason: Pain (mild 1-3) Albuterol/Ipratropium (Duoneb 3.0-0.5 Mg/3 Ml) 3 ml NEB Q4HRRT PRN PRN Reason: Shortness of Breath Last Admin: 08/06/18 08:23 Dose: 3 ml Alprazolam (Xanax) 1 mg PO BEDTIME CARLOS A Apixaban (Eliquis) 5 mg PO BID [facility] Last Admin: 08/06/18 09:01 Dose: 5 mg Budesonide/Formoterol Fumarate (Symbicort 160-4.5 Mcg) 0 gm INH BID [facility] Last Admin: 08/06/18 09:02 Dose: Admin: 08/06/18 02:58 Dose: Not Given Docusate Sodium (Colace) 100 mg PO DAILY [facility] Last Admin: 08/06/18 09:06 Dose: 100 mg Levofloxacin/Dextrose 750 mg/ (Premix) 150 mls @ 100 mls/hr IV Q24H [facility] Stop: 08/11/18 13:16 Ipratropium [place] (Atrovent Hfa) 0 gm INH QID PRN PRN Reason: Shortness of Breath Methylprednisolone Sodium Succinate (Solu-Medrol) 125 mg IV Q8H [facility] Last Admin: 08/06/18 06:17 Dose: 125 mg Montelukast Sodium (Singulair) 10 mg PO BEDTIME [facility] Oxycodone HCl (Oxycodone) 5 mg PO Q4H PRN PRN Reason: Pain (moderate 4-6) Budesonide/Formoterol 160-4.5 Mcg/Puff 6 Gm Inhaler 0 each INH BID [facility] Last Admin: 08/06/18 09:03 Dose: Senna (Senna) 8.6 mg PO ASDIRECTED CARLOS A Simvastatin (Zocor) 20 mg PO BEDTIME [facility] Sodium Chloride (Saline Flush) 10 ml FLUSH ASDIRECTED PRN PRN Reason: Keep Vein Open Sodium Chloride (Saline Flush) 2.5 ml FLUSH ASDIRECTED PRN PRN Reason: Keep Vein Open Temazepam (Restoril) 15 mg PO BEDTIME PRN PRN Reason: Sleep Trazodone HCl (Trazodone) 100 mg PO BEDTIME CARLOS A Last Admin: 08/06/18 02:58 Dose: Not Given Trazodone HCl (Trazodone) 100 mg PO BEDTIME CARLOS A
[2018-08-06] MEDS: Levofloxacin/Dextrose 5%-Water 750 MG in Premix Bag 1 BAG IV SCH (14:17)
[2018-08-06] MEDS: Albuterol/Ipratropium 3.0-0.5 MG/3 ML Neb Soln NEB PRN (18:54)
[2018-08-06] MEDS ORDERED: traZODone 50 MG Tab PO SCH (21:00)
[2018-08-06] MEDS ORDERED: ALPRAZolam 0.5 MG Tab PO SCH (21:00)
[2018-08-06] MEDS: Montelukast 10 MG Tab PO SCH (21:15)
[2018-08-06] MEDS: Simvastatin 20 MG Tab PO SCH (21:15)
[2018-08-06] MEDS: ALPRAZolam 0.5 MG Tab PO SCH (21:15)
[2018-08-07] MEDS: methylPREDNISolone Sodium Succinate 125 MG/2 ML SDV IV SCH ×3 (05:59→22:15)
--- NOTE | 2018-08-07 06:47 | PCM.PN ---
- General Info Date of Service: 08/07/18 Admission Dx/Problem (Free Text): Admission Diagnosis/Problem Admission Diagnosis/Problem COPD, Moderate chronic obstructive pulmonary disease Subjective Update: The patient is a 72-year-old gentleman who had been admitted yesterday secondary to severe shortness of breath. The patient has a history of COPD and had been admitted secondary to COPD exacerbation. The patient today says that he is still feeling short of breath and that just walking across the room he runs out of gas. The patient is a former smoker. The patient has expressed a desire to go home today. The patient has been has been using increasing amounts of oxygen at home. He has denied any fever or chills. He is still coughing. Functional Status: Reports: Pain Controlled - Review of Systems General: Reports: Weakness, Fatigue HEENT: Reports: No Symptoms Pulmonary: Reports: Shortness of Breath, Cough, Sputum Cardiovascular: Reports: No Symptoms Gastrointestinal: Reports: No Symptoms Genitourinary: Reports: No Symptoms Musculoskeletal: Reports: No Symptoms Skin: Reports: No Symptoms Neurological: Reports: No Symptoms Psychiatric: Reports: No Symptoms - Patient Data Vitals - Most Recent: Last Vital Signs Temp 36 C 08/07/18 04:00 Pulse 89 08/07/18 04:00 Resp 20 08/07/18 04:00 BP 91/43 L 08/07/18 04:00 Pulse Ox 91 L 08/07/18 04:00 Weight - Most Recent: 90.809 kg I&O - Last 24 Hours: Intake & Output 08/06/18 08/06/18 08/07/18 14:59 22:59 06:59 Intake Total 150 480 800 Output Total 425 360 Balance 150 55 440 Lab Results Last 24 Hours: Laboratory Results - last 24 hr 08/06/18 08/06/18 Range/Units 14:03 14:03 Iron 44 L (50-175) ug/dL TIBC 296 (250-450) ug/dL % Saturation 14.86 L (20-55) % Ferritin 162 (26-388) ng/mL Vitamin B12 863 (193-986) pg/mL Folate 10.90 (8.60-58.90) ng/mL Jose Manuel Results Last 24 Hours: Microbiology 08/06/18 19:35 Gram Stain - Preliminary Sputum - Expectorated Med Orders - Current: Current Medications Acetaminophen (Tylenol) 650 mg PO Q4H PRN PRN Reason: Pain (mild 1-3) Albuterol/Ipratropium (Duoneb 3.0-0.5 Mg/3 Ml) 3 ml NEB Q6HRRT PRN PRN Reason: Shortness of Breath Last Admin: 08/06/18 18:54 Dose: 3 ml Albuterol/Ipratropium (Duoneb 3.0-0.5 Mg/3 Ml) 3 ml NEB Q4HRRT PRN PRN Reason: Shortness of Breath Alprazolam (Xanax) 1 mg PO BEDTIME [facility] Last Admin: 08/06/18 21:15 Dose: 1 mg Apixaban (Eliquis) 5 mg PO BID [facility] Last Admin: 08/06/18 21:16 Dose: 5 mg Docusate Sodium (Colace) 100 mg PO DAILY [facility] Last Admin: 08/06/18 09:06 Dose: 100 mg Folic Acid (Folic Acid) 1 mg PO DAILY [facility] Levofloxacin/Dextrose 750 mg/ (Premix) 150 mls @ 100 mls/hr IV Q24H [facility] Stop: 08/11/18 13:16 Last Admin: 08/06/18 14:17 Dose: 100 mls/hr Ipratropium [place] (Atrovent Hfa) 0 gm INH QID PRN PRN Reason: Shortness of Breath Methylprednisolone Sodium Succinate (Solu-Medrol) 125 mg IV Q8H [facility] Last Admin: 08/07/18 05:59 Dose: 125 mg Montelukast Sodium (Singulair) 10 mg PO BEDTIME [facility] Last Admin: 08/06/18 21:15 Dose: 10 mg Oxycodone HCl (Oxycodone) 5 mg PO Q4H PRN PRN Reason: Pain (moderate 4-6) Budesonide/Formoterol 160-4.5 Mcg/Puff 6 Gm Inhaler 0 each INH BID [facility] Last Admin: 08/06/18 21:16 Dose: 2 each Polysaccharide Iron Complex (Ferrex 150) 150 mg PO DAILY [facility] Senna (Senna) 8.6 mg PO ASDIRECTED [facility] Simvastatin (Zocor) 20 mg PO BEDTIME [facility] Last Admin: 08/06/18 21:15 Dose: 20 mg Sodium Chloride (Saline Flush) 10 ml FLUSH ASDIRECTED PRN PRN Reason: Keep Vein Open Sodium Chloride (Saline Flush) 2.5 ml FLUSH ASDIRECTED PRN PRN Reason: Keep Vein Open Temazepam (Restoril) 15 mg PO BEDTIME PRN PRN Reason: Sleep Trazodone HCl (Trazodone) 100 mg PO BEDTIME [facility] Last Admin: 08/06/18 21:14 Dose: 100 mg Discontinued Medications Albuterol/Ipratropium (Duoneb 3.0-0.5 Mg/3 Ml) 3 ml NEB ONETIME ONE Stop: 08/05/18 21:34 Last Admin: 08/05/18 21:54 Dose: 3 ml Albuterol/Ipratropium (Duoneb 3.0-0.5 Mg/3 Ml) 3 ml NEB ONETIME ONE Stop: 08/05/18 22:54 Last Admin: 08/05/18 23:04 Dose: 3 ml Albuterol/Ipratropium (Duoneb 3.0-0.5 Mg/3 Ml) 3 ml NEB Q4HRRT PRN PRN Reason: Shortness of Breath Last Admin: 08/06/18 08:23 Dose: 3 ml Apixaban (Eliquis) 5 mg PO BID [facility] Last Admin: 08/06/18 09:02 Dose: Not Given Budesonide/Formoterol Fumarate (Symbicort 160-4.5 Mcg) 0 gm INH BID [facility] Stop: 08/07/18 00:12 Last Admin: 08/06/18 22:00 Dose: Not Given Ceftriaxone Sodium/Dextrose 2 (gm/ Premix) 50 mls @ 100 mls/hr IV ONETIME ONE Stop: 08/05/18 23:20 Last Admin: 08/05/18 23:06 Dose: 100 mls/hr Methylprednisolone Sodium Succinate (Solu-Medrol) 125 mg IVPUSH ONETIME ONE Stop: 08/05/18 21:34 Last Admin: 08/05/18 22:13 Dose: 125 mg Montelukast Sodium (Singulair) 10 mg PO BEDTIME [facility] Montelukast Sodium (Singulair) 10 mg PO BEDTIME [facility] Last Admin: 08/06/18 02:58 Dose: Not Given Simvastatin (Zocor) 20 mg PO BEDTIME [facility] Simvastatin (Zocor) 20 mg PO BEDTIME [facility] Last Admin: 08/06/18 02:58 Dose: Not Given Trazodone HCl (Trazodone) 100 mg PO BEDTIME [facility] Trazodone HCl (Trazodone) 100 mg PO BEDTIME [facility] Last Admin: 08/06/18 22:00 Dose: Not Given - Exam Quality Assessment: Supplemental Oxygen (5 L/m) General: Alert, Oriented, Cooperative, No Acute Distress HEENT: Pupils Equal, Pupils Reactive, EOMI. No: Mucous Membr. Moist/[place] (Dry) Neck: Supple, Trachea Midline Lungs: Decreased Breath Sounds, Crackles, Rales Cardiovascular: Regular Rate, Regular Rhythm GI/Abdominal Exam: Normal Bowel Sounds, Soft, No Distention Back Exam: Normal Inspection, Full Range of Motion Extremities: Normal Inspection, No Pedal Edema Skin: Warm, Dry, Intact Wound/Incisions: Healing Well Neurological: No New Focal Deficit Psy/Mental Status: Alert, Normal Affect, Normal Mood - Problem List & Annotations (1) Acute and chronic respiratory failure SNOMED Code(s): 71759517 Code(s): J96.20 - ACUTE AND CHR RESP FAILURE, UNSP W HYPOXIA OR HYPERCAPNIA Status: Acute Current Visit: Yes Qualifiers: Respiratory failure complication: hypoxia and hypercapnia Qualified Code(s) : J96.21 - Acute and chronic respiratory failure with hypoxia; J96.22 - Acute and chronic respiratory failure with hypercapnia (2) Acute exacerbation of chronic obstructive pulmonary disease (COPD) SNOMED Code(s): 924328511 Code(s): J44.1 - CHRONIC OBSTRUCTIVE PULMONARY DISEASE W (ACUTE) EXACERBATION Status: Acute Current Visit: Yes (3) COPD (chronic obstructive pulmonary disease) SNOMED Code(s): 07374226 Code(s): J44.9 - CHRONIC OBSTRUCTIVE PULMONARY DISEASE, UNSPECIFIED Status : Acute Current Visit: No Qualifiers: COPD type: emphysema Emphysema type: unspecified Qualified Code(s): J43.9 - Emphysema, unspecified (4) Personal history of pulmonary embolism SNOMED Code(s): 094688030 Code(s): Z86.711 - PERSONAL HISTORY OF PULMONARY EMBOLISM Status: Chronic Priority: Medium Current Visit: Yes - Problem List Review Problem List Initiated/Reviewed/Updated: Yes - My Orders Last 24 Hours: My Active Orders 08/06/18 06:00 methylPREDNISolone Sod Succ [Solu-MEDROL] 125 mg IV Q8H 08/06/18 08:03 Ipratropium [Atrovent HFA] 0 gm INH QID PRN Resuscitation Status Routine 08/06/18 08:15 Sennosides [Senna] 8.6 mg PO ASDIRECTED 08/06/18 09:00 Apixaban [Eliquis] 5 mg PO BID Docusate Sodium [Colace] 100 mg PO DAILY Patient's Own Medication [Ptom] 0 each INH BID 08/06/18 21:00 ALPRAZolam [Xanax] 1 mg PO BEDTIME Montelukast [Singulair] 10 mg PO BEDTIME Simvastatin [Zocor] 20 mg PO BEDTIME traZODone 100 mg PO BEDTIME 08/06/18 Breakfast Regular Diet [DIET] - Plan Plan:: A: 1. Acute COPD exacerbation 2. Macrocytic anemia 3. PMH PE, dyslipidemia. P: 1. Acute COPD exacerbation- Duonebs Q4H PRN, Methylprednisolone, Levaquin. Will continue his home inhalers. Goal O2 sat 88-94%. Sputum culture. 2. Macrocytic anemia. Will order iron studies and stool occult. Continue to monitor. 3. Hx of PE- continue Eliquis Dispo: 1-2 days The patient is a 72-year-old gentleman who is currently being treated for COPD exacerbation along with acute on chronic respiratory failure. Patient's oxygen demands have been high. We'll continue to keep his oxygen monitoring to keep his saturations around 90%. The patient will be kept on Levaquin and DuoNeb's along with methylprednisolone as well as his home inhalers. He does have a history of pulmonary emboli and is currently on Eliquis and this will be continued. Pharmacological DVT prophylaxis therefore will not be necessary. The patient has been encouraged to ambulate. I've also ordered laboratory testings and a chest x-ray for the morning.
[2018-08-07 07:15] LABS: CHLORIDE,CL 97 mmol/L (98-107); SODIUM,NA 137 mmol/L (136-148)
[2018-08-07] MEDS: Albuterol/Ipratropium 3.0-0.5 MG/3 ML Neb Soln NEB PRN ×3 (08:04→21:01)
[2018-08-07] MEDS: Budesonide/Formoterol 160-4.5 MCG/Puff 6 GM Inhaler INH SCH ×2 (08:06→21:45)
[2018-08-07] MEDS: Apixaban 5 MG Tab PO SCH ×2 (08:46→20:53)
[2018-08-07] MEDS: Iron Polysaccharides Complex 150 MG Cap PO SCH (08:46)
[2018-08-07] MEDS: Folic Acid 1 MG Tab PO SCH (08:47)
[2018-08-07] MEDS: Docusate Sodium 100 MG Cap PO SCH (08:48)
[2018-08-07] MEDS: Levofloxacin/Dextrose 5%-Water 750 MG in Premix Bag 1 BAG IV SCH (13:29)
[2018-08-07] MEDS: traZODone 50 MG Tab PO SCH (20:52)
[2018-08-07] MEDS: Montelukast 10 MG Tab PO SCH (20:52)
[2018-08-07] MEDS: ALPRAZolam 0.5 MG Tab PO SCH (20:53)
[2018-08-07] MEDS: Simvastatin 20 MG Tab PO SCH (20:53)
[2018-08-08 05:20] LABS: CHLORIDE,CL 98 mmol/L (98-107); SODIUM,NA 135 mmol/L (136-148)
[2018-08-08] MEDS: methylPREDNISolone Sodium Succinate 125 MG/2 ML SDV IV SCH (06:29)
[2018-08-08] MEDS: Albuterol/Ipratropium 3.0-0.5 MG/3 ML Neb Soln NEB PRN (08:40)
[2018-08-08] MEDS ORDERED: Bisacodyl 5 MG Tab PO ONE (08:40)
[2018-08-08] MEDS: Docusate Sodium 100 MG Cap PO SCH (08:54)
[2018-08-08] MEDS: Iron Polysaccharides Complex 150 MG Cap PO SCH (08:54)
[2018-08-08] MEDS: Apixaban 5 MG Tab PO SCH ×2 (08:54→20:34)
[2018-08-08] MEDS: Folic Acid 1 MG Tab PO SCH (08:55)
[2018-08-08] MEDS: Budesonide/Formoterol 160-4.5 MCG/Puff 6 GM Inhaler INH SCH ×2 (08:57→20:36)
--- NOTE | 2018-08-08 09:13 | PCM.DCSUM1 ---
Discharge Summary - Discharge Data Discharge Disposition: Home, Self-Care 01 Condition: Fair - Patient Summary/Data Consults: Consultations 08/06/18 16:12 Consult to Physical Therapy [PT Evaluation and Treatment] [CONS] Routine - Discharge Plan Home Medications: Home Meds Albuterol [Proventil HFA] 1 puff INH QID PRN 07/06/13 [History] Ipratropium [Atrovent HFA] 2 puff INH QID PRN 07/06/13 [History] Ipratropium/Albuterol Sulfate [Duoneb 0.5 mg-3 mg/3 ml Soln] 3 ml IH QID PRN [History] Simvastatin [Zocor] 20 mg PO BEDTIME 11/24/14 [History] traZODone 100 mg PO BEDTIME 11/24/14 [History] Docusate Sodium [Pedia-Lax Stool Softener] 50 mg PO DAILY 01/01/16 [History] ALPRAZolam [Xanax] 1 mg PO BEDTIME 04/18/16 [History] Budesonide/Formoterol Fumarate [Symbicort 160-4.5 Mcg Inhaler] 2 puff INH BID [History] Montelukast [Singulair] 10 mg PO BEDTIME 04/18/16 [History] Apixaban [Eliquis] 5 mg PO BID 04/30/18 [History] Sennosides 1 tab PO ASDIRECTED 08/05/18 [History] Forms: ED Department Discharge Referrals: Guille Limon MD [Primary Care Provider] - - Patient Data Vitals - Most Recent: Last Vital Signs Temp 36.6 C 08/07/18 23:37 Pulse 108 H 08/07/18 23:37 Resp 18 08/07/18 23:37 BP 127/71 08/07/18 23:37 Pulse Ox 90 L 08/07/18 23:37 Weight - Most Recent: 90.809 kg I&O - Last 24 hours: Intake & Output 08/07/18 08/08/18 08/08/18 22:59 06:59 14:59 Intake Total 240 680 Output Total 610 360 Balance -370 320 Lab Results - Last 24 hrs: Laboratory Results - last 24 hr 08/08/18 08/08/18 Range/Units 04:40 04:40 WBC 7.13 (4.0-11.0) K/uL RBC 3.93 L (4.50-5.90) M/uL Hgb 11.6 L (13.0-17.0) g/dL Hct 38.0 (38.0-50.0) % MCV 96.7 (80.0-98.0) fL MCH 29.5 (27.0-32.0) pg MCHC 30.5 L (31.0-37.0) g/dL RDW Std Deviation 48.8 (28.0-62.0) fl RDW Coeff of Giacomo 14 (11.0-15.0) % Plt Count 219 (150-400) K/uL MPV 10.10 (7.40-12.00) fL Neut % (Auto) 88.0 H (48.0-80.0) % Lymph % (Auto) 7.2 L (16.0-40.0) % [place] % (Auto) 4.8 (0.0-15.0) % Eos % (Auto) 0.0 (0.0-7.0) % Baso % (Auto) 0.0 (0.0-1.5) % Neut # (Auto) 6.3 H (1.4-5.7) K/uL Lymph # (Auto) 0.5 L (0.6-2.4) K/uL [place] # (Auto) 0.3 (0.0-0.8) K/uL Eos # (Auto) 0.0 (0.0-0.7) K/uL Baso # (Auto) 0.0 (0.0-0.1) K/uL Nucleated RBC % 0.0 /100WBC Nucleated RBCs # 0 K/uL Sodium 135 L (136-148) mmol/L Potassium 4.1 (3.5-5.1) mmol/L Chloride 98 (98-107) mmol/L Carbon Dioxide 37.0 H (21.0-32.0) mmol/L BUN 25 H (7.0-18.0) mg/dL Creatinine 0.7 L (0.8-1.3) mg/dL Est Cr Clr Drug Dosing 106.24 mL/min Estimated GFR (MDRD) > 60.0 ml/min Glucose 194 H (74-106) mg/dL Calcium 9.0 (8.5-10.1) mg/dL [facility] Results - Last 24 hrs: Microbiology 08/06/18 19:35 Gram Stain - Final Sputum - Expectorated Sputum Culture - Final Normal Respiratory Mariella Med Orders - Current: Current Medications Acetaminophen (Tylenol) 650 mg PO Q4H PRN PRN Reason: Pain (mild 1-3) Albuterol/Ipratropium (Duoneb 3.0-0.5 Mg/3 Ml) 3 ml NEB Q6HRRT PRN PRN Reason: Shortness of Breath Last Admin: 08/08/18 08:40 Dose: 3 ml Albuterol/Ipratropium (Duoneb 3.0-0.5 Mg/3 Ml) 3 ml NEB Q4HRRT PRN PRN Reason: Shortness of Breath Alprazolam (Xanax) 1 mg PO BEDTIME [facility] Last Admin: 08/07/18 20:53 Dose: 1 mg Apixaban (Eliquis) 5 mg PO BID [facility] Last Admin: 08/08/18 08:54 Dose: 5 mg Docusate Sodium (Colace) 100 mg PO DAILY [facility] Last Admin: 08/08/18 08:54 Dose: 100 mg Folic Acid (Folic Acid) 1 mg PO DAILY [facility] Last Admin: 08/08/18 08:55 Dose: 1 mg Levofloxacin/Dextrose 750 mg/ (Premix) 150 mls @ 100 mls/hr IV Q24H [facility] Stop: 08/11/18 13:16 Last Admin: 08/07/18 13:29 Dose: 100 mls/hr Ipratropium [place] (Atrovent Hfa) 0 gm INH QID PRN PRN Reason: Shortness of Breath Methylprednisolone Sodium Succinate (Solu-Medrol) 125 mg IV Q8H [facility] Last Admin: 08/08/18 06:29 Dose: 125 mg Montelukast Sodium (Singulair) 10 mg PO BEDTIME [facility] Last Admin: 08/07/18 20:52 Dose: 10 mg Oxycodone HCl (Oxycodone) 5 mg PO Q4H PRN PRN Reason: Pain (moderate 4-6) Budesonide/Formoterol 160-4.5 Mcg/Puff 6 Gm Inhaler 0 each INH BID [facility] Last Admin: 08/08/18 08:57 Dose: 2 each Polysaccharide Iron Complex (Ferrex 150) 150 mg PO DAILY [facility] Last Admin: 08/08/18 08:54 Dose: 150 mg Senna (Senna) 8.6 mg PO ASDIRECTED [facility] Last Admin: 08/07/18 08:48 Dose: 8.6 mg Simvastatin (Zocor) 20 mg PO BEDTIME [facility] Last Admin: 08/07/18 20:53 Dose: 20 mg Sodium Chloride (Saline Flush) 10 ml FLUSH ASDIRECTED PRN PRN Reason: Keep Vein Open Sodium Chloride (Saline Flush) 2.5 ml FLUSH ASDIRECTED PRN PRN Reason: Keep Vein Open Temazepam (Restoril) 15 mg PO BEDTIME PRN PRN Reason: Sleep Trazodone HCl (Trazodone) 100 mg PO BEDTIME [facility] Last Admin: 08/07/18 20:52 Dose: 100 mg Discontinued Medications Albuterol/Ipratropium (Duoneb 3.0-0.5 Mg/3 Ml) 3 ml NEB ONETIME ONE Stop: 08/05/18 21:34 Last Admin: 08/05/18 21:54 Dose: 3 ml Albuterol/Ipratropium (Duoneb 3.0-0.5 Mg/3 Ml) 3 ml NEB ONETIME ONE Stop: 08/05/18 22:54 Last Admin: 08/05/18 23:04 Dose: 3 ml Albuterol/Ipratropium (Duoneb 3.0-0.5 Mg/3 Ml) 3 ml NEB Q4HRRT PRN PRN Reason: Shortness of Breath Last Admin: 08/06/18 08:23 Dose: 3 ml Apixaban (Eliquis) 5 mg PO BID [facility] Last Admin: 08/06/18 09:02 Dose: Not Given Bisacodyl (Dulcolax) 30 mg PO ONETIME ONE Stop: 08/08/18 08:41 Last Admin: 08/08/18 08:53 Dose: 30 mg Budesonide/Formoterol Fumarate (Symbicort 160-4.5 Mcg) 0 gm INH BID [facility] Stop: 08/07/18 00:12 Last Admin: 08/06/18 22:00 Dose: Not Given Ceftriaxone Sodium/Dextrose 2 (gm/ Premix) 50 mls @ 100 mls/hr IV ONETIME ONE Stop: 08/05/18 23:20 Last Admin: 08/05/18 23:06 Dose: 100 mls/hr Methylprednisolone Sodium Succinate (Solu-Medrol) 125 mg IVPUSH ONETIME ONE Stop: 08/05/18 21:34 Last Admin: 08/05/18 22:13 Dose: 125 mg Montelukast Sodium (Singulair) 10 mg PO BEDTIME [facility] Montelukast Sodium (Singulair) 10 mg PO BEDTIME [facility] Last Admin: 08/06/18 02:58 Dose: Not Given Simvastatin (Zocor) 20 mg PO BEDTIME [facility] Simvastatin (Zocor) 20 mg PO BEDTIME [facility] Last Admin: 08/06/18 02:58 Dose: Not Given Trazodone HCl (Trazodone) 100 mg PO BEDTIME [facility] Trazodone HCl (Trazodone) 100 mg PO BEDTIME [facility] Last Admin: 08/06/18 22:00 Dose: Not Given
--- NOTE | 2018-08-08 10:06 | PCM.PN ---
<Albert Lopez - Last Filed: 08/08/18 10:01> - General Info Date of Service: 08/08/18 Subjective Update: No acute events overnight. Requiring 4 L O2 NC for O2 sat>90%. He is at his home baseline. Feeling constipated this morning. No chest pain, abdominal pain. Good PO intake. - Patient Data Vitals - Most Recent: Last Vital Signs Temp 36.6 C 08/07/18 23:37 Pulse 108 H 08/07/18 23:37 Resp 18 08/07/18 23:37 BP 127/71 08/07/18 23:37 Pulse Ox 90 L 08/07/18 23:37 Weight - Most Recent: 90.809 kg I&O - Last 24 Hours: Intake & Output 08/07/18 08/08/18 08/08/18 22:59 06:59 14:59 Intake Total 240 680 Output Total 610 360 Balance -370 320 Lab Results Last 24 Hours: Laboratory Results - last 24 hr 08/08/18 08/08/18 Range/Units 04:40 04:40 WBC 7.13 (4.0-11.0) K/uL RBC 3.93 L (4.50-5.90) M/uL Hgb 11.6 L (13.0-17.0) g/dL Hct 38.0 (38.0-50.0) % MCV 96.7 (80.0-98.0) fL MCH 29.5 (27.0-32.0) pg MCHC 30.5 L (31.0-37.0) g/dL RDW Std Deviation 48.8 (28.0-62.0) fl RDW Coeff of Giacomo 14 (11.0-15.0) % Plt Count 219 (150-400) K/uL MPV 10.10 (7.40-12.00) fL Neut % (Auto) 88.0 H (48.0-80.0) % Lymph % (Auto) 7.2 L (16.0-40.0) % Mineral % (Auto) 4.8 (0.0-15.0) % Eos % (Auto) 0.0 (0.0-7.0) % Baso % (Auto) 0.0 (0.0-1.5) % Neut # (Auto) 6.3 H (1.4-5.7) K/uL Lymph # (Auto) 0.5 L (0.6-2.4) K/uL Mineral # (Auto) 0.3 (0.0-0.8) K/uL Eos # (Auto) 0.0 (0.0-0.7) K/uL Baso # (Auto) 0.0 (0.0-0.1) K/uL Nucleated RBC % 0.0 /100WBC Nucleated RBCs # 0 K/uL Sodium 135 L (136-148) mmol/L Potassium 4.1 (3.5-5.1) mmol/L Chloride 98 (98-107) mmol/L Carbon Dioxide 37.0 H (21.0-32.0) mmol/L BUN 25 H (7.0-18.0) mg/dL Creatinine 0.7 L (0.8-1.3) mg/dL Est Cr Clr Drug Dosing 106.24 mL/min Estimated GFR (MDRD) > 60.0 ml/min Glucose 194 H (74-106) mg/dL Calcium 9.0 (8.5-10.1) mg/dL Jose Manuel Results Last 24 Hours: Microbiology 08/06/18 19:35 Gram Stain - Final Sputum - Expectorated Sputum Culture - Final Normal Respiratory Mariella Med Orders - Current: Current Medications Acetaminophen (Tylenol) 650 mg PO Q4H PRN PRN Reason: Pain (mild 1-3) Albuterol/Ipratropium (Duoneb 3.0-0.5 Mg/3 Ml) 3 ml NEB Q6HRRT PRN PRN Reason: Shortness of Breath Last Admin: 08/08/18 08:40 Dose: 3 ml Albuterol/Ipratropium (Duoneb 3.0-0.5 Mg/3 Ml) 3 ml NEB Q4HRRT PRN PRN Reason: Shortness of Breath Alprazolam (Xanax) 1 mg PO BEDTIME [facility] Last Admin: 08/07/18 20:53 Dose: 1 mg Apixaban (Eliquis) 5 mg PO BID [facility] Last Admin: 08/08/18 08:54 Dose: 5 mg Docusate Sodium (Colace) 100 mg PO DAILY [facility] Last Admin: 08/08/18 08:54 Dose: 100 mg Folic Acid (Folic Acid) 1 mg PO DAILY [facility] Last Admin: 08/08/18 08:55 Dose: 1 mg Levofloxacin/Dextrose 750 mg/ (Premix) 150 mls @ 100 mls/hr IV Q24H [facility] Stop: 08/11/18 13:16 Last Admin: 08/07/18 13:29 Dose: 100 mls/hr Ipratropium [place] (Atrovent Hfa) 0 gm INH QID PRN PRN Reason: Shortness of Breath Methylprednisolone Sodium Succinate (Solu-Medrol) 125 mg IV Q8H [facility] Last Admin: 08/08/18 06:29 Dose: 125 mg Montelukast Sodium (Singulair) 10 mg PO BEDTIME [facility] Last Admin: 08/07/18 20:52 Dose: 10 mg Oxycodone HCl (Oxycodone) 5 mg PO Q4H PRN PRN Reason: Pain (moderate 4-6) Budesonide/Formoterol 160-4.5 Mcg/Puff 6 Gm Inhaler 0 each INH BID [facility] Last Admin: 08/08/18 08:57 Dose: 2 each Polysaccharide Iron Complex (Ferrex 150) 150 mg PO DAILY [facility] Last Admin: 08/08/18 08:54 Dose: 150 mg Senna (Senna) 8.6 mg PO ASDIRECTED [facility] Last Admin: 08/07/18 08:48 Dose: 8.6 mg Simvastatin (Zocor) 20 mg PO BEDTIME [facility] Last Admin: 08/07/18 20:53 Dose: 20 mg Sodium Chloride (Saline Flush) 10 ml FLUSH ASDIRECTED PRN PRN Reason: Keep Vein Open Sodium Chloride (Saline Flush) 2.5 ml FLUSH ASDIRECTED PRN PRN Reason: Keep Vein Open Temazepam (Restoril) 15 mg PO BEDTIME PRN PRN Reason: Sleep Trazodone HCl (Trazodone) 100 mg PO BEDTIME [facility] Last Admin: 08/07/18 20:52 Dose: 100 mg Discontinued Medications Albuterol/Ipratropium (Duoneb 3.0-0.5 Mg/3 Ml) 3 ml NEB ONETIME ONE Stop: 08/05/18 21:34 Last Admin: 08/05/18 21:54 Dose: 3 ml Albuterol/Ipratropium (Duoneb 3.0-0.5 Mg/3 Ml) 3 ml NEB ONETIME ONE Stop: 08/05/18 22:54 Last Admin: 08/05/18 23:04 Dose: 3 ml Albuterol/Ipratropium (Duoneb 3.0-0.5 Mg/3 Ml) 3 ml NEB Q4HRRT PRN PRN Reason: Shortness of Breath Last Admin: 08/06/18 08:23 Dose: 3 ml Apixaban (Eliquis) 5 mg PO BID [facility] Last Admin: 08/06/18 09:02 Dose: Not Given Bisacodyl (Dulcolax) 30 mg PO ONETIME ONE Stop: 08/08/18 08:41 Last Admin: 08/08/18 08:53 Dose: 30 mg Budesonide/Formoterol Fumarate (Symbicort 160-4.5 Mcg) 0 gm INH BID [facility] Stop: 08/07/18 00:12 Last Admin: 08/06/18 22:00 Dose: Not Given Ceftriaxone Sodium/Dextrose 2 (gm/ Premix) 50 mls @ 100 mls/hr IV ONETIME ONE Stop: 08/05/18 23:20 Last Admin: 08/05/18 23:06 Dose: 100 mls/hr Methylprednisolone Sodium Succinate (Solu-Medrol) 125 mg IVPUSH ONETIME ONE Stop: 08/05/18 21:34 Last Admin: 08/05/18 22:13 Dose: 125 mg Montelukast Sodium (Singulair) 10 mg PO BEDTIME [facility] Montelukast Sodium (Singulair) 10 mg PO BEDTIME [facility] Last Admin: 08/06/18 02:58 Dose: Not Given Simvastatin (Zocor) 20 mg PO BEDTIME [facility] Simvastatin (Zocor) 20 mg PO BEDTIME [facility] Last Admin: 08/06/18 02:58 Dose: Not Given Trazodone HCl (Trazodone) 100 mg PO BEDTIME [facility] Trazodone HCl (Trazodone) 100 mg PO BEDTIME [facility] Last Admin: 08/06/18 22:00 Dose: Not Given - Exam Quality Assessment: Supplemental Oxygen General: Alert, Oriented, Cooperative, No Acute Distress Lungs: Other (prolonged inspiratory and expiratory phases. lung sounds bilaterally. mild wheezing in right lung.) Cardiovascular: Regular Rate, Regular Rhythm GI/Abdominal Exam: Normal Bowel Sounds, Non-Tender, No Distention Extremities: Normal Inspection, No Pedal Edema - Problem List Review Problem List Initiated/Reviewed/Updated: Yes - Plan Plan:: A: 1. Acute COPD exacerbation 2. Iron deficiency anemia 3. Constipation 4. PMH PE, dyslipidemia. P: 1. Acute COPD exacerbation- Duonebs Q4H PRN, Methylprednisolone, Levaquin. Will continue his home inhalers. Goal O2 sat 88-94%. 2. Constipation- ordered dulcolax. 3. Hx of PE- continue Eliquis Dispo: likely dc tomorrow <Pawel Dutta M - Last Filed: 08/08/18 14:24> - General Info Admission Dx/Problem (Free Text): I have seen and examined to patient independently of medical referral coordinator, Albert Moreno MD. I have discussed the case for care of this patient with him. I have reviewed and approve of the plan of care as outlined by medical referral coordinator. Please see orders. - Patient Data Vitals - Most Recent: Last Vital Signs Temp 36.4 C 08/08/18 12:00 Pulse 97 08/08/18 12:00 Resp 18 08/08/18 12:00 BP 120/62 08/08/18 12:00 Pulse Ox 93 L 08/08/18 12:00 I&O - Last 24 Hours: Intake & Output 08/07/18 08/08/18 08/08/18 22:59 06:59 14:59 Intake Total 240 680 Output Total 610 360 Balance -370 320 Lab Results Last 24 Hours: Laboratory Results - last 24 hr 08/08/18 08/08/18 Range/Units 04:40 04:40 WBC 7.13 (4.0-11.0) K/uL RBC 3.93 L (4.50-5.90) M/uL Hgb 11.6 L (13.0-17.0) g/dL Hct 38.0 (38.0-50.0) % MCV 96.7 (80.0-98.0) fL MCH 29.5 (27.0-32.0) pg MCHC 30.5 L (31.0-37.0) g/dL RDW Std Deviation 48.8 (28.0-62.0) fl RDW Coeff of Giacomo 14 (11.0-15.0) % Plt Count 219 (150-400) K/uL MPV 10.10 (7.40-12.00) fL Neut % (Auto) 88.0 H (48.0-80.0) % Lymph % (Auto) 7.2 L (16.0-40.0) % Mineral % (Auto) 4.8 (0.0-15.0) % Eos % (Auto) 0.0 (0.0-7.0) % Baso % (Auto) 0.0 (0.0-1.5) % Neut # (Auto) 6.3 H (1.4-5.7) K/uL Lymph # (Auto) 0.5 L (0.6-2.4) K/uL Mineral # (Auto) 0.3 (0.0-0.8) K/uL Eos # (Auto) 0.0 (0.0-0.7) K/uL Baso # (Auto) 0.0 (0.0-0.1) K/uL Nucleated RBC % 0.0 /100WBC Nucleated RBCs # 0 K/uL Sodium 135 L (136-148) mmol/L Potassium 4.1 (3.5-5.1) mmol/L Chloride 98 (98-107) mmol/L Carbon Dioxide 37.0 H (21.0-32.0) mmol/L BUN 25 H (7.0-18.0) mg/dL Creatinine 0.7 L (0.8-1.3) mg/dL Est Cr Clr Drug Dosing 106.24 mL/min Estimated GFR (MDRD) > 60.0 ml/min Glucose 194 H (74-106) mg/dL Calcium 9.0 (8.5-10.1) mg/dL Jose Manuel Results Last 24 Hours: Microbiology 08/06/18 19:35 Gram Stain - Final Sputum - Expectorated Sputum Culture - Final Normal Respiratory Mariella Med Orders - Current: Current Medications Acetaminophen (Tylenol) 650 mg PO Q4H PRN PRN Reason: Pain (mild 1-3) Albuterol/Ipratropium (Duoneb 3.0-0.5 Mg/3 Ml) 3 ml NEB Q6HRRT PRN PRN Reason: Shortness of Breath Last Admin: 08/08/18 08:40 Dose: 3 ml Albuterol/Ipratropium (Duoneb 3.0-0.5 Mg/3 Ml) 3 ml NEB Q4HRRT PRN PRN Reason: Shortness of Breath Alprazolam (Xanax) 1 mg PO BEDTIME [facility] Last Admin: 08/07/18 20:53 Dose: 1 mg Apixaban (Eliquis) 5 mg PO BID [facility] Last Admin: 08/08/18 08:54 Dose: 5 mg Docusate Sodium (Colace) 100 mg PO DAILY [facility] Last Admin: 08/08/18 08:54 Dose: 100 mg Folic Acid (Folic Acid) 1 mg PO DAILY [facility] Last Admin: 08/08/18 08:55 Dose: 1 mg Levofloxacin/Dextrose 750 mg/ (Premix) 150 mls @ 100 mls/hr IV Q24H [facility] Stop: 08/11/18 13:16 Last Admin: 08/08/18 13:36 Dose: 100 mls/hr Ipratropium [place] (Atrovent Hfa) 0 gm INH QID PRN PRN Reason: Shortness of Breath Montelukast Sodium (Singulair) 10 mg PO BEDTIME [facility] Last Admin: 08/07/18 20:52 Dose: 10 mg Oxycodone HCl (Oxycodone) 5 mg PO Q4H PRN PRN Reason: Pain (moderate 4-6) Budesonide/Formoterol 160-4.5 Mcg/Puff 6 Gm Inhaler 0 each INH BID [facility] Last Admin: 08/08/18 08:57 Dose: 2 each Polyethylene Glycol (Miralax) 17 gm PO TID PRN PRN Reason: Constipation Polysaccharide Iron Complex (Ferrex 150) 150 mg PO DAILY [facility] Last Admin: 08/08/18 08:54 Dose: 150 mg Prednisone (Prednisone) 40 mg PO WITHBREAKFAST [facility] Senna (Senna) 8.6 mg PO ASDIRECTED [facility] Last Admin: 08/07/18 08:48 Dose: 8.6 mg Simvastatin (Zocor) 20 mg PO BEDTIME [facility] Last Admin: 08/07/18 20:53 Dose: 20 mg Sodium Chloride (Saline Flush) 10 ml FLUSH ASDIRECTED PRN PRN Reason: Keep Vein Open Sodium Chloride (Saline Flush) 2.5 ml FLUSH ASDIRECTED PRN PRN Reason: Keep Vein Open Temazepam (Restoril) 15 mg PO BEDTIME PRN PRN Reason: Sleep Trazodone HCl (Trazodone) 100 mg PO BEDTIME [facility] Last Admin: 08/07/18 20:52 Dose: 100 mg Discontinued Medications Albuterol/Ipratropium (Duoneb 3.0-0.5 Mg/3 Ml) 3 ml NEB ONETIME ONE Stop: 08/05/18 21:34 Last Admin: 08/05/18 21:54 Dose: 3 ml Albuterol/Ipratropium (Duoneb 3.0-0.5 Mg/3 Ml) 3 ml NEB ONETIME ONE Stop: 08/05/18 22:54 Last Admin: 08/05/18 23:04 Dose: 3 ml Albuterol/Ipratropium (Duoneb 3.0-0.5 Mg/3 Ml) 3 ml NEB Q4HRRT PRN PRN Reason: Shortness of Breath Last Admin: 08/06/18 08:23 Dose: 3 ml Apixaban (Eliquis) 5 mg PO BID [facility] Last Admin: 08/06/18 09:02 Dose: Not Given Bisacodyl (Dulcolax) 30 mg PO ONETIME ONE Stop: 08/08/18 08:41 Last Admin: 08/08/18 08:53 Dose: 30 mg Budesonide/Formoterol Fumarate (Symbicort 160-4.5 Mcg) 0 gm INH BID [facility] Stop: 08/07/18 00:12 Last Admin: 08/06/18 22:00 Dose: Not Given Ceftriaxone Sodium/Dextrose 2 (gm/ Premix) 50 mls @ 100 mls/hr IV ONETIME ONE Stop: 08/05/18 23:20 Last Admin: 08/05/18 23:06 Dose: 100 mls/hr Methylprednisolone Sodium Succinate (Solu-Medrol) 125 mg IVPUSH ONETIME ONE Stop: 08/05/18 21:34 Last Admin: 08/05/18 22:13 Dose: 125 mg Methylprednisolone Sodium Succinate (Solu-Medrol) 125 mg IV Q8H [facility] Last Admin: 08/08/18 06:29 Dose: 125 mg Montelukast Sodium (Singulair) 10 mg PO BEDTIME [facility] Montelukast Sodium (Singulair) 10 mg PO BEDTIME [facility] Last Admin: 08/06/18 02:58 Dose: Not Given Simvastatin (Zocor) 20 mg PO BEDTIME [facility] Simvastatin (Zocor) 20 mg PO BEDTIME [facility] Last Admin: 08/06/18 02:58 Dose: Not Given Trazodone HCl (Trazodone) 100 mg PO BEDTIME [facility] Trazodone HCl (Trazodone) 100 mg PO BEDTIME [facility] Last Admin: 08/06/18 22:00 Dose: Not Given - Problem List & Annotations (1) Acute and chronic respiratory failure SNOMED Code(s): 92902938 Code(s): J96.20 - ACUTE AND CHR RESP FAILURE, UNSP W HYPOXIA OR HYPERCAPNIA Status: Acute Current Visit: Yes Qualifiers: Respiratory failure complication: hypoxia and hypercapnia Qualified Code(s) : J96.21 - Acute and chronic respiratory failure with hypoxia; J96.22 - Acute and chronic respiratory failure with hypercapnia (2) Acute exacerbation of chronic obstructive pulmonary disease (COPD) SNOMED Code(s): 237873660 Code(s): J44.1 - CHRONIC OBSTRUCTIVE PULMONARY DISEASE W (ACUTE) EXACERBATION Status: Acute Current Visit: Yes (3) COPD (chronic obstructive pulmonary disease) SNOMED Code(s): 30365795 Code(s): J44.9 - CHRONIC OBSTRUCTIVE PULMONARY DISEASE, UNSPECIFIED Status : Acute Current Visit: No Qualifiers: COPD type: emphysema Emphysema type: unspecified Qualified Code(s): J43.9 - Emphysema, unspecified (4) Personal history of pulmonary embolism SNOMED Code(s): 181556895 Code(s): Z86.711 - PERSONAL HISTORY OF PULMONARY EMBOLISM Status: Chronic Priority: Medium Current Visit: Yes - My Orders Last 24 Hours: My Active Orders 08/07/18 14:54 Admission Status [Patient Status] [ADT] Routine
[2018-08-08] MEDS ORDERED: Polyethylene Glycol 3350 Powder 17 GM Packet PO PRN (12:24)
--- NOTE | 2018-08-08 12:52 | CR ---
Indication: COPD. Technique: Single AP portable view of the chest was obtained. Comparison: August 05, 2018. Findings: The heart is normal in size. The lungs are hyperinflated. The lung bases are not included on the study. No infiltrate, pleural effusion, or pneumothorax is identified. Impression: Hyperinflation. Dictated by Unique Molina MD @ Aug 08 2018 12:49PM Signed by Dr. Unique Molina @ Aug 08 2018 12:50PM
[2018-08-08] MEDS: Levofloxacin/Dextrose 5%-Water 750 MG in Premix Bag 1 BAG IV SCH (13:36)
[2018-08-08] MEDS: traZODone 50 MG Tab PO SCH (20:34)
[2018-08-08] MEDS: Simvastatin 20 MG Tab PO SCH (20:35)
[2018-08-08] MEDS: ALPRAZolam 0.5 MG Tab PO SCH (20:35)
[2018-08-08] MEDS: Montelukast 10 MG Tab PO SCH (20:36)
[2018-08-09] MEDS ORDERED: predniSONE 20 MG Tab PO SCH (08:00)
[2018-08-09] MEDS: Docusate Sodium 100 MG Cap PO SCH (08:49)
[2018-08-09] MEDS: Folic Acid 1 MG Tab PO SCH (08:49)
[2018-08-09] MEDS: Iron Polysaccharides Complex 150 MG Cap PO SCH (08:49)
[2018-08-09] MEDS: Apixaban 5 MG Tab PO SCH (08:50)
[2018-08-09] MEDS: Budesonide/Formoterol 160-4.5 MCG/Puff 6 GM Inhaler INH SCH (08:54)
[2018-08-09 09:07] LABS: CHLORIDE,CL 100 mmol/L (98-107); SODIUM,NA 138 mmol/L (136-148)
[2018-08-09] MEDS: Albuterol/Ipratropium 3.0-0.5 MG/3 ML Neb Soln NEB PRN (09:07)
--- NOTE | 2018-08-09 09:43 | PCM.DCSUM1 ---
<Albert Lopez - Last Filed: 08/09/18 13:32> Discharge Summary - Hospital Course Free Text/Narrative:: 72 y/o male with history of COPD who was admitted for an acute COPD exacerbation. He was started on Levaquin an methylprednisolone daily. In addition, scheduled Duonebs were ordered. He did relatively well during this hospitalization. He was able to be at his baseline with 4 L O2 NC with O2 sat in mid 90's. He was advised to continue his home medications for his COPD and was discharged home on methylprednisolone taper and azithromycin 250 mg PO daily for COPD exacerbation prophylaxis. He was advised to follow-up with his PCP. - Discharge Data Discharge Date: 08/09/18 Discharge Disposition: Home, Self-Care 01 Condition: Fair - Patient Summary/Data Consults: Consultations 08/06/18 16:12 Consult to Physical Therapy [PT Evaluation and Treatment] [CONS] Routine - Patient Instructions Diet: Regular Diet as Tolerated Activity: As Tolerated Notify Provider of: Fever, Increased Pain, Swelling and Redness, Nausea and/or Vomiting - Discharge Plan *PRESCRIPTION DRUG MONITORING PROGRAM REVIEWED*: Not Applicable *COPY OF PRESCRIPTION DRUG MONITORING REPORT IN PATIENT LIZZIE: Not Applicable Prescriptions/Med Rec: Azithromycin [Zithromax] 250 mg PO DAILY #30 tab Iron Polysaccharides Complex [Ferrex 150] 150 mg PO DAILY #30 cap methylPREDNISolone [Methylprednisolone] 32 mg PO DAILY 7 Days #7 tablet Home Medications: Home Meds Albuterol [Proventil HFA] 1 puff INH QID PRN 07/06/13 [History] Ipratropium [Atrovent HFA] 2 puff INH QID PRN 07/06/13 [History] Ipratropium/Albuterol Sulfate [Duoneb 0.5 mg-3 mg/3 ml Soln] 3 ml IH QID PRN [History] Simvastatin [Zocor] 20 mg PO BEDTIME 11/24/14 [History] traZODone 100 mg PO BEDTIME 11/24/14 [History] Docusate Sodium [Pedia-Lax Stool Softener] 50 mg PO DAILY 01/01/16 [History] ALPRAZolam [Xanax] 1 mg PO BEDTIME 04/18/16 [History] Budesonide/Formoterol Fumarate [Symbicort 160-4.5 Mcg Inhaler] 2 puff INH BID [History] Montelukast [Singulair] 10 mg PO BEDTIME 04/18/16 [History] Apixaban [Eliquis] 5 mg PO BID 04/30/18 [History] Sennosides 1 tab PO ASDIRECTED 08/05/18 [History] Azithromycin [Zithromax] 250 mg PO DAILY #30 tab 08/09/18 [Rx] Iron Polysaccharides Complex [Ferrex 150] 150 mg PO DAILY #30 cap 08/09/18 [Rx] methylPREDNISolone [Methylprednisolone] 32 mg PO DAILY 7 Days #7 tablet [Rx] Oxygen Therapy Mode: Nasal Cannula Patient Handouts: Chronic Obstructive Pulmonary Disease Exacerbation, Easy-to- Read, Chronic Respiratory Failure, Polysaccharide-Iron Complex tablets or capsules, Azithromycin tablets, Methylprednisolone tablets Referrals: [facility] [Outside] Viki Velarde MD [Ordering Only Provider] - 08/18/18 12:45 pm - Discharge Summary/Plan Comment DC Time >30 min.: No - Patient Data Vitals - Most Recent: Last Vital Signs Temp 36.6 C 08/09/18 00:00 Pulse 96 08/09/18 00:00 Resp 18 08/09/18 00:00 BP 94/50 L 08/09/18 00:00 Pulse Ox 95 08/09/18 00:00 Weight - Most Recent: 90.809 kg I&O - Last 24 hours: Intake & Output 08/08/18 08/09/18 08/09/18 22:59 06:59 14:59 Intake Total 560 Output Total 240 Balance 320 Lab Results - Last 24 hrs: Laboratory Results - last 24 hr 08/09/18 Range/Units 08:01 Sodium 138 (136-148) mmol/L Potassium 3.7 (3.5-5.1) mmol/L Chloride 100 (98-107) mmol/L Carbon Dioxide 37.8 H (21.0-32.0) mmol/L BUN 27 H (7.0-18.0) mg/dL Creatinine 0.6 L (0.8-1.3) mg/dL Est Cr Clr Drug Dosing 123.94 mL/min Estimated GFR (MDRD) > 60.0 ml/min Glucose 95 (74-106) mg/dL Calcium 8.8 (8.5-10.1) mg/dL FRANSISCO Results - Last 24 hrs: Microbiology 08/06/18 19:35 Gram Stain - Final Sputum - Expectorated Sputum Culture - Final Normal Respiratory Mariella Med Orders - Current: Current Medications Acetaminophen (Tylenol) 650 mg PO Q4H PRN PRN Reason: Pain (mild 1-3) Last Admin: 08/08/18 18:19 Dose: 650 mg Albuterol/Ipratropium (Duoneb 3.0-0.5 Mg/3 Ml) 3 ml NEB Q6HRRT PRN PRN Reason: Shortness of Breath Last Admin: 08/09/18 09:07 Dose: 3 ml Albuterol/Ipratropium (Duoneb 3.0-0.5 Mg/3 Ml) 3 ml NEB Q4HRRT PRN PRN Reason: Shortness of Breath Last Admin: 08/08/18 22:11 Dose: 3 ml Alprazolam (Xanax) 1 mg PO BEDTIME [facility] Last Admin: 08/08/18 20:35 Dose: 1 mg Apixaban (Eliquis) 5 mg PO BID [facility] Last Admin: 08/09/18 08:50 Dose: 5 mg Docusate Sodium (Colace) 100 mg PO DAILY [facility] Last Admin: 08/09/18 08:49 Dose: 100 mg Folic Acid (Folic Acid) 1 mg PO DAILY [facility] Last Admin: 08/09/18 08:49 Dose: 1 mg Levofloxacin/Dextrose 750 mg/ (Premix) 150 mls @ 100 mls/hr IV Q24H [facility] Stop: 08/11/18 13:16 Last Admin: 08/08/18 13:36 Dose: 100 mls/hr Ipratropium [place] (Atrovent Hfa) 0 gm INH QID PRN PRN Reason: Shortness of Breath Montelukast Sodium (Singulair) 10 mg PO BEDTIME [facility] Last Admin: 08/08/18 20:36 Dose: 10 mg Oxycodone HCl (Oxycodone) 5 mg PO Q4H PRN PRN Reason: Pain (moderate 4-6) Budesonide/Formoterol 160-4.5 Mcg/Puff 6 Gm Inhaler 0 each INH BID [facility] Last Admin: 08/09/18 08:54 Dose: 2 each Polyethylene Glycol (Miralax) 17 gm PO TID PRN PRN Reason: Constipation Polysaccharide Iron Complex (Ferrex 150) 150 mg PO DAILY [facility] Last Admin: 08/09/18 08:49 Dose: 150 mg Prednisone (Prednisone) 40 mg PO WITHBREAKFAST [facility] Last Admin: 08/09/18 08:53 Dose: Not Given Senna (Senna) 8.6 mg PO ASDIRECTED [facility] Last Admin: 08/07/18 08:48 Dose: 8.6 mg Simvastatin (Zocor) 20 mg PO BEDTIME [facility] Last Admin: 08/08/18 20:35 Dose: 20 mg Sodium Chloride (Saline Flush) 10 ml FLUSH ASDIRECTED PRN PRN Reason: Keep Vein Open Sodium Chloride (Saline Flush) 2.5 ml FLUSH ASDIRECTED PRN PRN Reason: Keep Vein Open Temazepam (Restoril) 15 mg PO BEDTIME PRN PRN Reason: Sleep Trazodone HCl (Trazodone) 100 mg PO BEDTIME [facility] Last Admin: 08/08/18 20:34 Dose: 100 mg Discontinued Medications Albuterol/Ipratropium (Duoneb 3.0-0.5 Mg/3 Ml) 3 ml NEB ONETIME ONE Stop: 08/05/18 21:34 Last Admin: 08/05/18 21:54 Dose: 3 ml Albuterol/Ipratropium (Duoneb 3.0-0.5 Mg/3 Ml) 3 ml NEB ONETIME ONE Stop: 08/05/18 22:54 Last Admin: 08/05/18 23:04 Dose: 3 ml Albuterol/Ipratropium (Duoneb 3.0-0.5 Mg/3 Ml) 3 ml NEB Q4HRRT PRN PRN Reason: Shortness of Breath Last Admin: 08/06/18 08:23 Dose: 3 ml Apixaban (Eliquis) 5 mg PO BID [facility] Last Admin: 08/06/18 09:02 Dose: Not Given Bisacodyl (Dulcolax) 30 mg PO ONETIME ONE Stop: 08/08/18 08:41 Last Admin: 08/08/18 08:53 Dose: 30 mg Budesonide/Formoterol Fumarate (Symbicort 160-4.5 Mcg) 0 gm INH BID [facility] Stop: 08/07/18 00:12 Last Admin: 08/06/18 22:00 Dose: Not Given Ceftriaxone Sodium/Dextrose 2 (gm/ Premix) 50 mls @ 100 mls/hr IV ONETIME ONE Stop: 08/05/18 23:20 Last Admin: 08/05/18 23:06 Dose: 100 mls/hr Methylprednisolone Sodium Succinate (Solu-Medrol) 125 mg IVPUSH ONETIME ONE Stop: 08/05/18 21:34 Last Admin: 08/05/18 22:13 Dose: 125 mg Methylprednisolone Sodium Succinate (Solu-Medrol) 125 mg IV Q8H [facility] Last Admin: 08/08/18 06:29 Dose: 125 mg Montelukast Sodium (Singulair) 10 mg PO BEDTIME [facility] Montelukast Sodium (Singulair) 10 mg PO BEDTIME [facility] Last Admin: 08/06/18 02:58 Dose: Not Given Simvastatin (Zocor) 20 mg PO BEDTIME [facility] Simvastatin (Zocor) 20 mg PO BEDTIME [facility] Last Admin: 08/06/18 02:58 Dose: Not Given Trazodone HCl (Trazodone) 100 mg PO BEDTIME [facility] Trazodone HCl (Trazodone) 100 mg PO BEDTIME [facility] Last Admin: 08/06/18 22:00 Dose: Not Given <Pawel Dutta - Last Filed: 08/09/18 17:06> Discharge Summary - Hospital Course HPI Initial Comments: I have seen and examined to patient independently of certified court/medical interpreter, Albert Moreno MD. I have discussed the case for care of this patient with him. I have reviewed and approve of the plan of care as outlined by certified court/medical interpreter. Please see orders. - Discharge Diagnosis/Problem(s) (1) Acute and chronic respiratory failure SNOMED Code(s): 97338918 ICD Code: J96.20 - ACUTE AND CHR RESP FAILURE, UNSP W HYPOXIA OR HYPERCAPNIA Status: Acute Qualifiers: Respiratory failure complication: hypoxia and hypercapnia Qualified Code(s) : J96.21 - Acute and chronic respiratory failure with hypoxia; J96.22 - Acute and chronic respiratory failure with hypercapnia (2) Acute exacerbation of chronic obstructive pulmonary disease (COPD) SNOMED Code(s): 937201111 ICD Code: J44.1 - CHRONIC OBSTRUCTIVE PULMONARY DISEASE W (ACUTE) EXACERBATION Status: Acute (3) COPD (chronic obstructive pulmonary disease) SNOMED Code(s): 96638014 ICD Code: J44.9 - CHRONIC OBSTRUCTIVE PULMONARY DISEASE, UNSPECIFIED Status : Acute Qualifiers: COPD type: emphysema Emphysema type: unspecified Qualified Code(s): J43.9 - Emphysema, unspecified (4) Personal history of pulmonary embolism SNOMED Code(s): 672535700 ICD Code: Z86.711 - PERSONAL HISTORY OF PULMONARY EMBOLISM Status: Chronic Priority: Medium - Patient Summary/Data Consults: Consultations 08/06/18 16:12 Consult to Physical Therapy [PT Evaluation and Treatment] [CONS] Routine - Patient Data Vitals - Most Recent: Last Vital Signs Temp 36.6 C 08/09/18 11:10 Pulse 78 08/09/18 11:10 Resp 18 08/09/18 11:10 BP 112/62 08/09/18 11:10 Pulse Ox 96 08/09/18 11:10 I&O - Last 24 hours: Intake & Output 08/09/18 08/09/18 08/09/18 06:59 14:59 22:59 Intake Total 560 240 Output Total 240 0 Balance 320 240 Lab Results - Last 24 hrs: Laboratory Results - last 24 hr 08/09/18 Range/Units 08:01 Sodium 138 (136-148) mmol/L Potassium 3.7 (3.5-5.1) mmol/L Chloride 100 (98-107) mmol/L Carbon Dioxide 37.8 H (21.0-32.0) mmol/L BUN 27 H (7.0-18.0) mg/dL Creatinine 0.6 L (0.8-1.3) mg/dL Est Cr Clr Drug Dosing 123.94 mL/min Estimated GFR (MDRD) > 60.0 ml/min Glucose 95 (74-106) mg/dL Calcium 8.8 (8.5-10.1) mg/dL Med Orders - Current: Current Medications Discontinued Medications Acetaminophen (Tylenol) 650 mg PO Q4H PRN PRN Reason: Pain (mild 1-3) Last Admin: 08/08/18 18:19 Dose: 650 mg Albuterol/Ipratropium (Duoneb 3.0-0.5 Mg/3 Ml) 3 ml NEB ONETIME ONE Stop: 08/05/18 21:34 Last Admin: 08/05/18 21:54 Dose: 3 ml Albuterol/Ipratropium (Duoneb 3.0-0.5 Mg/3 Ml) 3 ml NEB ONETIME ONE Stop: 08/05/18 22:54 Last Admin: 08/05/18 23:04 Dose: 3 ml Albuterol/Ipratropium (Duoneb 3.0-0.5 Mg/3 Ml) 3 ml NEB Q4HRRT PRN PRN Reason: Shortness of Breath Last Admin: 08/06/18 08:23 Dose: 3 ml Albuterol/Ipratropium (Duoneb 3.0-0.5 Mg/3 Ml) 3 ml NEB Q6HRRT PRN PRN Reason: Shortness of Breath Last Admin: 08/09/18 09:07 Dose: 3 ml Albuterol/Ipratropium (Duoneb 3.0-0.5 Mg/3 Ml) 3 ml NEB Q4HRRT PRN PRN Reason: Shortness of Breath Last Admin: 08/08/18 22:11 Dose: 3 ml Alprazolam (Xanax) 1 mg PO BEDTIME [facility] Last Admin: 08/08/18 20:35 Dose: 1 mg Apixaban (Eliquis) 5 mg PO BID [facility] Last Admin: 08/06/18 09:02 Dose: Not Given Apixaban (Eliquis) 5 mg PO BID [facility] Last Admin: 08/09/18 08:50 Dose: 5 mg Bisacodyl (Dulcolax) 30 mg PO ONETIME ONE Stop: 08/08/18 08:41 Last Admin: 08/08/18 08:53 Dose: 30 mg Budesonide/Formoterol Fumarate (Symbicort 160-4.5 Mcg) 0 gm INH BID [facility] Stop: 08/07/18 00:12 Last Admin: 08/06/18 22:00 Dose: Not Given Docusate Sodium (Colace) 100 mg PO DAILY [facility] Last Admin: 08/09/18 08:49 Dose: 100 mg Folic Acid (Folic Acid) 1 mg PO DAILY [facility] Last Admin: 08/09/18 08:49 Dose: 1 mg Ceftriaxone Sodium/Dextrose 2 (gm/ Premix) 50 mls @ 100 mls/hr IV ONETIME ONE Stop: 08/05/18 23:20 Last Admin: 08/05/18 23:06 Dose: 100 mls/hr Levofloxacin/Dextrose 750 mg/ (Premix) 150 mls @ 100 mls/hr IV Q24H [facility] Stop: 08/11/18 13:16 Last Admin: 08/08/18 13:36 Dose: 100 mls/hr Ipratropium [place] (Atrovent Hfa) 0 gm INH QID PRN PRN Reason: Shortness of Breath Methylprednisolone Sodium Succinate (Solu-Medrol) 125 mg IVPUSH ONETIME ONE Stop: 08/05/18 21:34 Last Admin: 08/05/18 22:13 Dose: 125 mg Methylprednisolone Sodium Succinate (Solu-Medrol) 125 mg IV Q8H [facility] Last Admin: 08/08/18 06:29 Dose: 125 mg Montelukast Sodium (Singulair) 10 mg PO BEDTIME [facility] Montelukast Sodium (Singulair) 10 mg PO BEDTIME [facility] Last Admin: 08/06/18 02:58 Dose: Not Given Montelukast Sodium (Singulair) 10 mg PO BEDTIME [facility] Last Admin: 08/08/18 20:36 Dose: 10 mg Oxycodone HCl (Oxycodone) 5 mg PO Q4H PRN PRN Reason: Pain (moderate 4-6) Budesonide/Formoterol 160-4.5 Mcg/Puff 6 Gm Inhaler 0 each INH BID [facility] Last Admin: 08/09/18 08:54 Dose: 2 each Polyethylene Glycol (Miralax) 17 gm PO TID PRN PRN Reason: Constipation Polysaccharide Iron Complex (Ferrex 150) 150 mg PO DAILY [facility] Last Admin: 08/09/18 08:49 Dose: 150 mg Prednisone (Prednisone) 40 mg PO WITHBREAKFAST [facility] Last Admin: 08/09/18 08:53 Dose: Not Given Senna (Senna) 8.6 mg PO ASDIRECTED [facility] Last Admin: 08/07/18 08:48 Dose: 8.6 mg Simvastatin (Zocor) 20 mg PO BEDTIME [facility] Simvastatin (Zocor) 20 mg PO BEDTIME [facility] Last Admin: 08/06/18 02:58 Dose: Not Given Simvastatin (Zocor) 20 mg PO BEDTIME [facility] Last Admin: 08/08/18 20:35 Dose: 20 mg Sodium Chloride (Saline Flush) 10 ml FLUSH ASDIRECTED PRN PRN Reason: Keep Vein Open Sodium Chloride (Saline Flush) 2.5 ml FLUSH ASDIRECTED PRN PRN Reason: Keep Vein Open Temazepam (Restoril) 15 mg PO BEDTIME PRN PRN Reason: Sleep Trazodone HCl (Trazodone) 100 mg PO BEDTIME [facility] Trazodone HCl (Trazodone) 100 mg PO BEDTIME [facility] Last Admin: 08/06/18 22:00 Dose: Not Given Trazodone HCl (Trazodone) 100 mg PO BEDTIME [facility] Last Admin: 08/08/18 20:34 Dose: 100 mg
[2018-08-09 11:10] VITALS: BP 112/62
== END 2018-08-09 11:35 | disposition home or self-care (01) | DRG 189 ==
LOC: MW.ED 21:13 → MW.MS 22:53 → OBSVTOIN 08-07 12:59 → MW.MS 08-07 13:00
PROVIDERS: ADMIT Internal Medicine; ATTEND Internal Medicine
DX: J96.21 Acute and chronic respiratory failure with hypoxia (principal); J96.22 Acute and chronic respiratory failure with hypercapnia; J43.9 Emphysema, unspecified; E78.5 Hyperlipidemia, unspecified; J44.1 Chronic obstructive pulmonary disease with (acute) exacerbation; R06.02 Shortness of breath; Z87.891 Personal history of nicotine dependence; Z86.711 Personal history of pulmonary embolism; Z79.01 Long term (current) use of anticoagulants; Z99.81 Dependence on supplemental oxygen; Z99.2 Dependence on renal dialysis; R60.0 Localized edema; R05 Cough; R09.02 Hypoxemia; Z88.8 Allergy status to other drugs, medicaments and biological substances; D53.9 Nutritional anemia, unspecified; Z79.899 Other long term (current) drug therapy; E78.00 Pure hypercholesterolemia, unspecified; I71.4 Abdominal aortic aneurysm, without rupture; K59.09 Other constipation; Z85.46 Personal history of malignant neoplasm of prostate; Z92.3 Personal history of irradiation; F41.9 Anxiety disorder, unspecified; Z96.642 Presence of left artificial hip joint
CPT/HCPCS: 36415 ×3; 71045; 80048; 80053; 80061; 82607; 82728; 82746; 83036; 83550; 83605; 83880; 84484; 85025; 85027; 85610; 87070; 87205; 93005; 94640 ×6; 96365; 96366; 96367; 96375; 96376 ×2; 97161; 99285; A4217 ×2; A9270 ×12; G0378 ×2; J0696; J1956; J2930 ×5; 99284; J7620-GY

== ENCOUNTER 2022-04-13 14:01 | Inpatient (IN) | payer MEDICARE, BC, OTHER ==
[2022-04-13] MEDS ORDERED: Sodium Chloride 0.9% 2.5 ML Syringe FLUSH PRN (14:56)
[2022-04-13] MEDS ORDERED: Sodium Chloride 0.9% 10 ML Syringe FLUSH PRN (14:56)
[2022-04-13] MEDS ORDERED: Furosemide 40 MG/4 ML VIAL IVPUSH ONE (15:04)
[2022-04-13] MEDS ORDERED: Albuterol/Ipratropium 3.0-0.5 MG/3 ML Neb Soln NEB ONE (15:12)
[2022-04-13 15:44] LABS: CARBON DIOXIDE,CO2 43.6 mmol/L (21.0-32.0); POTASSIUM,K 3.8 mmol/L (3.5-5.1)
[2022-04-13 16:01] LABS: CORONAVIRUS COVID-19 NAA NEGATIVE (NEGATIVE); INFLUENZA A NAA NEGATIVE (NEGATIVE); INFLUENZA B NAA NEGATIVE (NEGATIVE); RESPIRATORY SYNCYTIAL VIR NAA NEGATIVE (NEGATIVE)
[2022-04-13] MEDS ORDERED: Albuterol 8 GM Inhaler INH PRN (21:33)
[2022-04-13] MEDS ORDERED: Ipratropium 12.9 GM Inhaler INH PRN (21:33)
[2022-04-13] MEDS ORDERED: Albuterol/Ipratropium 3.0-0.5 MG/3 ML Neb Soln NEB PRN (21:38)
[2022-04-13] MEDS ORDERED: Docusate Sodium Liquid 100 MG/10 ML UD Cup PO SCH (21:45)
[2022-04-13] MEDS ORDERED: Docusate Sodium 100 MG Cap PO ONE (22:26)
[2022-04-13] MEDS: Heparin Sodium 5,000 Units/ML Vial SUBCUT SCH (22:41)
[2022-04-13] MEDS: ALPRAZolam 0.5 MG Tab PO SCH (22:42)
[2022-04-13] MEDS: Simvastatin 20 MG Tab PO SCH (22:42)
[2022-04-13] MEDS: Budesonide/Formoterol 160-4.5 MCG/Puff 6 GM Inhaler INH SCH (22:54)
[2022-04-14] MEDS: Albuterol/Ipratropium 3.0-0.5 MG/3 ML Neb Soln INH SCH ×5 (01:28→21:32)
[2022-04-14] MEDS: ALPRAZolam 0.5 MG Tab PO SCH ×3 (05:54→21:23)
[2022-04-14 06:13] LABS: CARBON DIOXIDE,CO2 43.5 mmol/L (21.0-32.0); POTASSIUM,K 3.5 mmol/L (3.5-5.1)
[2022-04-14] MEDS: Furosemide 40 MG/4 ML VIAL IVPUSH SCH ×2 (08:20→21:25)
[2022-04-14] MEDS: Budesonide/Formoterol 160-4.5 MCG/Puff 6 GM Inhaler INH SCH ×2 (08:55→21:32)
[2022-04-14] MEDS ORDERED: METHYLPREDNISOLONE PO SCH (09:00)
[2022-04-14] MEDS: Heparin Sodium 5,000 Units/ML Vial SUBCUT SCH ×2 (10:29→21:31)
[2022-04-14] MEDS ORDERED: Ipratropium 12.9 GM Inhaler INH PRN (12:47)
[2022-04-14] MEDS ORDERED: Albuterol 8 GM Inhaler INH PRN (12:48)
[2022-04-14] MEDS ORDERED: Simvastatin 20 MG Tab PO SCH (21:00)
[2022-04-14] MEDS: Docusate Sodium 100 MG Cap PO SCH (21:22)
[2022-04-14] MEDS: Simvastatin 20 MG Tab PO SCH (21:24)
[2022-04-15] MEDS: ALPRAZolam 0.5 MG Tab PO SCH ×2 (06:22→13:53)
[2022-04-15] MEDS: Albuterol/Ipratropium 3.0-0.5 MG/3 ML Neb Soln INH SCH ×2 (06:41→11:55)
[2022-04-15 06:42] LABS: CARBON DIOXIDE,CO2 43.8 mmol/L (21.0-32.0); POTASSIUM,K 3.3 mmol/L (3.5-5.1)
[2022-04-15] MEDS ORDERED: Potassium Chloride 20 MEQ Tab.ER PO ONE (07:56)
[2022-04-15] MEDS: Docusate Sodium 100 MG Cap PO SCH (09:06)
[2022-04-15] MEDS: Heparin Sodium 5,000 Units/ML Vial SUBCUT SCH (10:28)
[2022-04-15] MEDS: Budesonide/Formoterol 160-4.5 MCG/Puff 6 GM Inhaler INH SCH (10:28)
[2022-04-15 11:33] VITALS: BP 112/59; PULSE 79
== END 2022-04-15 14:38 | disposition home health service (06) | DRG 641 ==
LOC: MW.ED 14:01 → MW.MS 17:16
PROVIDERS: ADMIT Internal Medicine; ATTEND Internal Medicine
DX: E87.70 Fluid overload, unspecified (principal); I10 Essential (primary) hypertension; Z20.822 Contact with and (suspected) exposure to COVID-19; J44.9 Chronic obstructive pulmonary disease, unspecified; E78.00 Pure hypercholesterolemia, unspecified; F41.9 Anxiety disorder, unspecified; Z96.642 Presence of left artificial hip joint; Z79.899 Other long term (current) drug therapy; I71.40 Abdominal aortic aneurysm, without rupture, unspecified; J43.9 Emphysema, unspecified; K59.09 Other constipation; Z86.010 Personal history of colon polyps; Z92.3 Personal history of irradiation; Z79.51 Long term (current) use of inhaled steroids; Z85.46 Personal history of malignant neoplasm of prostate; Z98.890 Other specified postprocedural states; Z99.81 Dependence on supplemental oxygen; Z86.711 Personal history of pulmonary embolism; Z98.49 Cataract extraction status, unspecified eye; Z83.6 Family history of other diseases of the respiratory system; Z87.891 Personal history of nicotine dependence
CPT/HCPCS: 0241U; 36415; 71045; 80048; 80053; 81001; 83735; 83880; 84484; 85025; 85379; 93005; 93306; 94640; 97161; 93010; 96374; 99285; 99285-25; A9270-GY; J1644; J1940; J3490; J7620-GY

== ENCOUNTER 2022-04-23 11:37 | Emergency (ER) | payer BC, OTHER ==
[2022-04-23] MEDS ORDERED: Sodium Chloride 0.9% 2.5 ML Syringe FLUSH PRN (11:41)
[2022-04-23] MEDS ORDERED: Sodium Chloride 0.9% 10 ML Syringe FLUSH PRN (11:41)
[2022-04-23 12:36] LABS: CARBON DIOXIDE,CO2 35.1 mmol/L (21.0-32.0); POTASSIUM,K 4.6 mmol/L (3.5-5.1)
[2022-04-23 13:09] LABS: CORONAVIRUS COVID-19 NAA NEGATIVE (NEGATIVE); INFLUENZA A NAA NEGATIVE (NEGATIVE); INFLUENZA B NAA NEGATIVE (NEGATIVE)
[2022-04-23] MEDS ORDERED: Sodium Chloride 0.9% 1,000 ML IV ONE (13:12)
[2022-04-23] MEDS ORDERED: Azithromycin 500 MG in Sodium Chloride 0.9% 250 ML IV ONE (15:04)
[2022-04-23] MEDS ORDERED: cefTRIAXone 1 GM in Sodium Chloride 0.9% 50 ML IV ONE (15:04)
[2022-04-23 20:11] VITALS: BP 146/76; PULSE 103
== END 2022-04-23 19:00 ==
LOC: MW.ED 11:37
DX: J18.9 Pneumonia, unspecified organism (principal); N28.9 Disorder of kidney and ureter, unspecified; E78.00 Pure hypercholesterolemia, unspecified; J44.9 Chronic obstructive pulmonary disease, unspecified; Z79.899 Other long term (current) drug therapy; Z88.8 Allergy status to other drugs, medicaments and biological substances; Z20.822 Contact with and (suspected) exposure to COVID-19
CPT/HCPCS: 0240U; 36415; 71250; 74176; 80053; 81003; 83690; 83880; 85025; 93005; 96361; 96365; 96367; 99285; J0456; J0696; J3490; J7030; J7050

== ENCOUNTER 2022-07-10 12:24 | Inpatient (IN) | payer MEDICARE, BC ==
[2022-07-10 13:12] LABS: BASOPHILS PERCENT AUTO 0.2 % (0.0-1.5); EOSINOPHILS ABSOLUTE AUTO 0.1 K/uL (0.0-0.7); EOSINOPHILS PERCENT AUTO 1.2 % (0.0-7.0); HEMATOCRIT 37.5 % (38.0-50.0); HEMOGLOBIN 10.9 g/dL (13.0-17.0); LYMPHOCYTES ABSOLUTE AUTO 1.3 K/uL (0.6-2.4); LYMPHOCYTES PERCENT AUTO 22.3 % (16.0-40.0); MEAN CORPUSCULAR HEMOGLOBIN 29.7 pg (27.0-32.0); MEAN CORPUSCULAR HGB CONC 29.1 g/dL (31.0-37.0); MEAN CORPUSCULAR VOLUME 102.2 fL (80.0-98.0); MONOCYTES ABSOLUTE AUTO 0.4 K/uL (0.0-0.8); MONOCYTES PERCENT AUTO 6.4 % (0.0-15.0); NEUTROPHILS PERCENT AUTO 69.9 % (48.0-80.0); NRBC ABSOLUTE 0 K/uL; PLATELET COUNT,PLT 237 K/uL (150-400); RED BLOOD CELL COUNT 3.67 M/uL (4.50-5.90); WHITE BLOOD CELL COUNT,WBC 5.65 K/uL (4.0-11.0)
[2022-07-10 13:37] LABS: A/G RATIO 0.6 (0.9-1.6); ALBUMIN 2.5 g/dL (3.4-5.0); BILIRUBIN TOTAL 0.4 mg/dL (0.2-1.0); CALCIUM 9.1 mg/dL (8.5-10.1); CREATININE 0.5 mg/dL (0.8-1.3); EST CRCL DRUG DOSING (CG) 112.2 mL/min; MAGNESIUM 1.7 mg/dL (1.8-2.4); POTASSIUM,K 3.8 mmol/L (3.5-5.1); PROTEIN TOTAL,TP 6.5 g/dL (6.4-8.2)
[2022-07-10] MEDS ORDERED: Furosemide 40 MG/4 ML VIAL IVPUSH ONE (13:51)
[2022-07-10] MEDS ORDERED: cefTRIAXone 1 GM in Sodium Chloride 0.9% 50 ML IV ONE (14:30)
[2022-07-10] MEDS: Azithromycin 500 MG in Sodium Chloride 0.9% 250 ML IV SCH (20:38)
[2022-07-10] MEDS: Enoxaparin 40 MG/0.4 ML Syringe SUBCUT SCH (20:40)
[2022-07-10] MEDS: Furosemide 40 MG/4 ML VIAL IVPUSH SCH (22:06)
[2022-07-10] MEDS ORDERED: Ipratropium 12.9 GM Inhaler INH PRN (23:47)
[2022-07-11] MEDS: Albuterol/Ipratropium 3.0-0.5 MG/3 ML Neb Soln INH SCH ×6 (00:21→21:16)
[2022-07-11] MEDS: ALPRAZolam 0.5 MG Tab PO SCH ×3 (05:10→22:28)
[2022-07-11 06:11] LABS: BASOPHILS PERCENT AUTO 0.2 % (0.0-1.5); EOSINOPHILS ABSOLUTE AUTO 0.1 K/uL (0.0-0.7); EOSINOPHILS PERCENT AUTO 1.2 % (0.0-7.0); HEMOGLOBIN 11.6 g/dL (13.0-17.0); LYMPHOCYTES ABSOLUTE AUTO 1.2 K/uL (0.6-2.4); LYMPHOCYTES PERCENT AUTO 20.2 % (16.0-40.0); MONOCYTES ABSOLUTE AUTO 0.7 K/uL (0.0-0.8); NEUTROPHILS PERCENT AUTO 67.4 % (48.0-80.0); NRBC ABSOLUTE 0 K/uL; PLATELET COUNT,PLT 263 K/uL (150-400); WHITE BLOOD CELL COUNT,WBC 5.93 K/uL (4.0-11.0)
[2022-07-11 06:41] LABS: CALCIUM 9.8 mg/dL (8.5-10.1); CREATININE 0.6 mg/dL (0.8-1.3); EST CRCL DRUG DOSING (CG) 99.3 mL/min; POTASSIUM,K 3.3 mmol/L (3.5-5.1)
[2022-07-11 06:59] LABS: CARBON DIOXIDE,CO2 52.6 mmol/L (21.0-32.0)
[2022-07-11] MEDS ORDERED: Potassium Chloride 20 MEQ in Premix Bag 1 BAG IV ONE (07:13)
[2022-07-11] MEDS ORDERED: Magnesium Sulfate (4.06 MEQ/ML) 5 GM/10 ML SDV IV ONE (07:14)
[2022-07-11] MEDS ORDERED: Magnesium Sulfate/Water 2 GM in Premix Bag 1 BAG IV ONE ×2 (07:30→07:56)
[2022-07-11] MEDS ORDERED: Sodium Chloride 0.9% 250 ML IV ONE (07:30)
[2022-07-11] MEDS ORDERED: Pantoprazole 40 MG Tab.CR PO SCH (09:00)
[2022-07-11] MEDS: Docusate Sodium Liquid 100 MG/10 ML UD Cup PO SCH ×2 (10:30→22:18)
[2022-07-11] MEDS: Polyethylene Glycol 3350 Powder 17 GM Packet PO SCH (10:30)
[2022-07-11] MEDS: Furosemide 40 MG/4 ML VIAL IVPUSH SCH (10:31)
[2022-07-11] MEDS: Tamsulosin 0.4 MG Cap.ER PO SCH (10:31)
[2022-07-11] MEDS: Pantoprazole 40 MG Tab.CR PO SCH (10:45)
[2022-07-11] MEDS: Budesonide/Formoterol 160-4.5 MCG/Puff 6 GM Inhaler INH SCH ×2 (10:56→22:32)
[2022-07-11] MEDS: cefTRIAXone 1 GM in Sodium Chloride 0.9% 50 ML IV SCH (13:59)
[2022-07-11] MEDS: Azithromycin 500 MG in Sodium Chloride 0.9% 250 ML IV SCH (18:53)
[2022-07-11] MEDS: Enoxaparin 40 MG/0.4 ML Syringe SUBCUT SCH (18:53)
[2022-07-11] MEDS: Fluticasone NASAL Spray 16 GM Bottle NASBOTH SCH ×2 (19:25→22:29)
[2022-07-11] MEDS: Simvastatin 40 MG Tab PO SCH (22:19)
[2022-07-12] MEDS: ALPRAZolam 0.5 MG Tab PO SCH ×3 (06:21→21:01)
[2022-07-12 06:43] LABS: BASOPHILS PERCENT AUTO 0.3 % (0.0-1.5); EOSINOPHILS ABSOLUTE AUTO 0.1 K/uL (0.0-0.7); EOSINOPHILS PERCENT AUTO 2.8 % (0.0-7.0); HEMATOCRIT 35.9 % (38.0-50.0); HEMOGLOBIN 10.9 g/dL (13.0-17.0); LYMPHOCYTES PERCENT AUTO 24.4 % (16.0-40.0); MEAN CORPUSCULAR HEMOGLOBIN 29.5 pg (27.0-32.0); MEAN CORPUSCULAR HGB CONC 30.4 g/dL (31.0-37.0); MONOCYTES ABSOLUTE AUTO 0.5 K/uL (0.0-0.8); MONOCYTES PERCENT AUTO 12.2 % (0.0-15.0); NEUTROPHILS ABSOLUTE AUTO 2.4 K/uL (1.4-5.7); NEUTROPHILS PERCENT AUTO 60.3 % (48.0-80.0); NRBC ABSOLUTE 0 K/uL; PLATELET COUNT,PLT 211 K/uL (150-400); WHITE BLOOD CELL COUNT,WBC 3.94 K/uL (4.0-11.0)
[2022-07-12 07:07] LABS: CALCIUM 9.2 mg/dL (8.5-10.1); CARBON DIOXIDE,CO2 50.1 mmol/L (21.0-32.0); CREATININE 0.5 mg/dL (0.8-1.3); EST CRCL DRUG DOSING (CG) 119.16 mL/min; POTASSIUM,K 3.3 mmol/L (3.5-5.1)
[2022-07-12] MEDS: Pantoprazole 40 MG Tab.CR PO SCH (07:34)
[2022-07-12] MEDS: Albuterol/Ipratropium 3.0-0.5 MG/3 ML Neb Soln INH SCH ×4 (08:00→20:49)
[2022-07-12] MEDS: Furosemide 40 MG/4 ML VIAL IVPUSH SCH (08:36)
[2022-07-12] MEDS: Polyethylene Glycol 3350 Powder 17 GM Packet PO SCH (08:36)
[2022-07-12] MEDS: Tamsulosin 0.4 MG Cap.ER PO SCH (08:36)
[2022-07-12] MEDS ORDERED: Potassium Chloride 20 MEQ Tab.ER PO ONE (10:09)
[2022-07-12] MEDS: Budesonide/Formoterol 160-4.5 MCG/Puff 6 GM Inhaler INH SCH ×2 (10:30→20:58)
[2022-07-12] MEDS: Docusate Sodium Liquid 100 MG/10 ML UD Cup PO SCH ×2 (10:30→20:49)
[2022-07-12] MEDS: Fluticasone NASAL Spray 16 GM Bottle NASBOTH SCH ×2 (10:35→20:49)
[2022-07-12] MEDS: cefTRIAXone 1 GM in Sodium Chloride 0.9% 50 ML IV SCH (13:45)
[2022-07-12] MEDS: Azithromycin 500 MG in Sodium Chloride 0.9% 250 ML IV SCH (20:33)
[2022-07-12] MEDS: Enoxaparin 40 MG/0.4 ML Syringe SUBCUT SCH (20:34)
[2022-07-12] MEDS: Simvastatin 40 MG Tab PO SCH (20:49)
[2022-07-13] MEDS: ALPRAZolam 0.5 MG Tab PO SCH (05:47)
[2022-07-13] MEDS: Pantoprazole 40 MG Tab.CR PO SCH ×2 (05:47→06:45)
[2022-07-13 05:57] LABS: HEMATOCRIT 36.6 % (38.0-50.0); HEMOGLOBIN 11.2 g/dL (13.0-17.0); MEAN CORPUSCULAR HEMOGLOBIN 30.2 pg (27.0-32.0); MEAN CORPUSCULAR HGB CONC 30.6 g/dL (31.0-37.0); MEAN CORPUSCULAR VOLUME 98.7 fL (80.0-98.0); MEAN PLATELET VOLUME 9.9 fL (7.40-12.00); RED BLOOD CELL COUNT 3.71 M/uL (4.50-5.90); WHITE BLOOD CELL COUNT,WBC 4.02 K/uL (4.0-11.0)
[2022-07-13 06:13] LABS: CALCIUM 9.3 mg/dL (8.5-10.1); CREATININE 0.5 mg/dL (0.8-1.3); EST CRCL DRUG DOSING (CG) 112.04 mL/min; POTASSIUM,K 3.7 mmol/L (3.5-5.1)
[2022-07-13] MEDS: Albuterol/Ipratropium 3.0-0.5 MG/3 ML Neb Soln INH SCH (07:09)
[2022-07-13] MEDS: Polyethylene Glycol 3350 Powder 17 GM Packet PO SCH (08:12)
[2022-07-13] MEDS: Tamsulosin 0.4 MG Cap.ER PO SCH (08:12)
[2022-07-13] MEDS: Docusate Sodium Liquid 100 MG/10 ML UD Cup PO SCH (08:13)
[2022-07-13] MEDS: Furosemide 40 MG/4 ML VIAL IVPUSH SCH (08:13)
[2022-07-13] MEDS: Fluticasone NASAL Spray 16 GM Bottle NASBOTH SCH (08:13)
[2022-07-13] MEDS ORDERED: guaiFENesin 600 MG Tab.ER PO ONE (08:54)
[2022-07-13] MEDS: Budesonide/Formoterol 160-4.5 MCG/Puff 6 GM Inhaler INH SCH (08:57)
[2022-07-13 11:51] VITALS: BP 105/65; PULSE 86
== END 2022-07-13 12:30 | disposition home or self-care (01) | DRG 177 ==
LOC: MW.ED 12:24 → MW.MS 18:43
PROVIDERS: ADMIT Internal Medicine; ATTEND Internal Medicine
DX: J69.0 Pneumonitis due to inhalation of food and vomit (principal); E43 Unspecified severe protein-calorie malnutrition; J44.9 Chronic obstructive pulmonary disease, unspecified; J96.21 Acute and chronic respiratory failure with hypoxia; J96.22 Acute and chronic respiratory failure with hypercapnia; I50.31 Acute diastolic (congestive) heart failure; R64 Cachexia; Z68.1 Body mass index [BMI] 19.9 or less, adult; K59.09 Other constipation; N18.9 Chronic kidney disease, unspecified; J43.2 Centrilobular emphysema; Z96.642 Presence of left artificial hip joint; N40.0 Benign prostatic hyperplasia without lower urinary tract symptoms; Z99.81 Dependence on supplemental oxygen; Z88.8 Allergy status to other drugs, medicaments and biological substances; Z86.010 Personal history of colon polyps; Z98.49 Cataract extraction status, unspecified eye; Z98.890 Other specified postprocedural states; Z79.51 Long term (current) use of inhaled steroids; Z79.899 Other long term (current) drug therapy; Z66 Do not resuscitate
CPT/HCPCS: 36415; 71045; 71275; 80053; 83735; 83880; 84484; 85025; 85379; 93005; 96365; 96375; 99285; J0696; J1940; J3490; 80048; 85027; 93010; 94640; 99222; 99232; 99239; A9270-GY; J0456; J1650; J3475; J3480; J7050; J7620-GY

== ENCOUNTER 2022-09-10 18:59 | Emergency (ER) | payer MEDICARE, BC ==
[2022-09-10 19:41] LABS: APPEARANCE,URINE CLOUDY; BILIRUBIN,URINE NEGATIVE (NEGATIVE); COLOR,URINE YELLOW; GLUCOSE,URINE NEGATIVE (NEGATIVE); KETONES,URINE NEGATIVE (NEGATIVE); LEUKOCYTE ESTERASE,URINE LARGE (NEGATIVE); NITRITE,URINE POSITIVE (NEGATIVE); OCCULT BLOOD,URINE MODERATE (NEGATIVE); PH,URINE 6.5 (5.0-8.0); PROTEIN,URINE NEGATIVE (NEGATIVE); UROBILINOGEN,URINE 0.2 EU/dL (<2.0)
[2022-09-10 19:49] LABS: BACTERIA,URINE FEW (NEGATIVE); EPITHELIAL CELLS,URINE NOT SEEN (NONE-FEW); MUCUS,URINE FEW (NONE-MOD); RBC,URINE 20-30 (0-2/HPF); SQUAMOUS EPITHELIAL CELLS,UR NOT SEEN; WBC,URINE 40-50 (0-5/HPF)
[2022-09-10] MEDS ORDERED: Cephalexin 500 MG Cap PO STA (20:31)
[2022-09-10 20:32] VITALS: BP 107/57; PULSE 57
== END 2022-09-10 20:56 | disposition home or self-care (01) ==
LOC: MW.ED 18:59
DX: T83.511A Infection and inflammatory reaction due to indwelling urethral catheter, initial encounter (principal); Z46.6 Encounter for fitting and adjustment of urinary device; I50.9 Heart failure, unspecified; E78.00 Pure hypercholesterolemia, unspecified; J44.9 Chronic obstructive pulmonary disease, unspecified; Z79.899 Other long term (current) drug therapy; Z88.8 Allergy status to other drugs, medicaments and biological substances
CPT/HCPCS: 51702; 81001; 87086; 99284; A9270